=== PATIENT | male | born 2000 | race Caucasian/White ===

== ENCOUNTER 2020-01-06 10:22 | Emergency (ER) | payer OTHER ==
--- OUTSIDE RECORDS SUMMARY | 2020-01-06 10:25 | XMS REPORT | Continuity of Care Document ---
:2000 Author Organization [employer] Care Team Providers Name Role Phone [employer] Unavailable Un available Problems Problem Status Onset Classification Date Comments Sourc e Date Reported Fractured nasal Active 02/06/20 Problem 09/02/2017 Data bones (disorder) 14 migrated Med ical from [employer] on 07/28/14. NASAL FRACTURE Active 02/06/20 Condition 02/05/2014 14 Medical Group CONTUSION OF KNEE Inactive 11/03/19 Condition 02/05/2014 M H 14 Medical Group SPRAIN OF Inactive 11/03/19 Condition 02/05/2014 UNSPECIFIED SITE OF 14 Medical HIP AND THIGH - Grou p HYPEREXTENSION Upper respiratory Resolved 12/31/19 Problem 09/02/2017 Data mi grated from [employer] on 09/15/14. infection 13 Data migrated from [employer] on 09/14/14. Medical (disorder) Group UPPER RESPIRATORY Inactive 12/31/19 Condition 02/05/2014 M H INFECTION 13 Medical Group WRIST SPRAIN Inactive 11/03/19 Condition 02/05/2014 13 Medical Group WELL ADOLESCENCE Active 10/29/19 Condition 02/05/2014 VISIT 13 Medical Group Backache (finding) Resolved 06/11/19 Problem 09/02/2017 Data m igrated from [employer] [facility] on 09/15/14. 13 Data migrated from [employer] on 09/14/14. Medical Group BACK PAIN Inactive 06/11/19 Condition 02/05/2014 13 Medical Group Acute upper Resolved 01/08/20 Problem 09/02/2017 Data migrated from [employer] on 09/15/14. respiratory 12 Data migrated from [employer] on 09/14/14. Medical infection Group (disorder) UPPER RESPIRATORY Inactive 01/08/20 Condition 02/05/2014 M H INFECTION, ACUTE 12 Med ical Group Gastroesophageal Active Problem 09/02/2017 Data reflux disease migrated Medic al (disorder) from [employer] on 07/28/14. ASTHMA Inactive Condition 02/05/2014 Medical Group G E R D Active Condition 02/05/2014 Medical Group FAMILY HISTORY OF Inactive Condition 02/05/2014 M H ASTHMA Medical Group FAMILY HISTORY OF Inactive Condition 02/05/2014 M H DIABETES Medical Group Medications Medication Details Route Status Patient Ordering Order Source Instructions Provider Date SYMBICORT 2 puffs 2 No Longer 12/31/19 80-4.5 MCG/ACT times/day Active 13 Medical AERO Group XOPENEX HFA 45 2 puffs No Longer 12/31/19 MCG/ACT AERO 3xday Active 13 Medical during Group acute illness or every 3-4 hours as needed for wheezing AEROCHAMBER to be used No Longer 12/31/19 PLUS MISC with Active 13 Medical inhalers Group PROTONIX 20 MG No Longer 01/08/20 TBEC Active 12 Medical Group ZITHROMAX use as No Longer 01/08/20 Z-STEFANO 250 MG directed Active 12 Medical TABS Group CHERATUSSIN AC 1 tsp q 6 No Longer 01/08/20 100-10 MG/5ML hrs prn Active 12 Medical SYRP cough Group REMERON 15 MG No Longer 01/08/20 TABS Active 12 Medical Group ADVAIR DISKUS No Longer 01/08/20 250-50 Active 12 Medical MCG/DOSE AEPB Group SINGULAIR 10 No Longer 01/08/20 MG TABS Active 12 Medical Group Allergies, Adverse Reactions, Alerts No Known Medication Allergies Immunizations Immunization Date Site Status Last Comments Source Given Updated influenza 10/29/19 completed Medical immunization (Flu 13 Gr oup Vax) has been administered diphtheria/pertuss 10/29/19 Right completed GE Result Comm ent: Medical is, acel/tetanus 13 Deltoid boostrix [facility] adult<sup>1</sup> [[id number]]. Migrated from OBS ; Data migrated from [employer] on 04/02/2015. meningococcal 10/29/19 Left Deltoid completed GE Result Commen t: [facility] conjugate 13 menactra Group vaccine<sup>2</sup (mcv4p) > [[id number]]. Migrated from OBS ; Data migrated from [employer] on 04/02/2015. influenza virus 10/29/19 Bilateral completed GE Result Comment : Medical vaccine, live, 13 Nares flumist Group trivalent<sup>3</s quadrivalen t up> [[id number]]. Migrated from OBS ; Data migrated from [employer] on 04/02/2015. Hx influenza 10/29/19 completed GE Result Comment: [facility] vaccine-unspecifie 13 10-28-2012. Group d<sup>4</sup> Migrated from OBS ; Data migrated from [employer] on 04/02/2015. human 10/29/19 Left Deltoid completed GE Result Comment: [facility] papillomavirus 13 gardasil Group vaccine<sup>5</sup [[id number]]. > Migrated from OBS VIS: Gardasil: 04-22-2011 ; Data migrated from [employer] on 04/02/2015. Hx pneumococcal 01/27/20 completed GE Result Comment : Medical vaccine<sup>6</sup 11 historical. Group > Migrated from OBS ; Data migrated from [employer] on 04/02/2015. pediatric 01/27/20 completed Medical pneumococcal 11 Group vaccine (Prevnar)#4 varicella virus 07/05/19 completed GE Result Comment : Medical vaccine<sup>10</alexander 09 historical. Group p> Migrated from OBS ; Data migrated from [employer] on 04/02/2015. chicken pox 07/05/19 completed Medic al immunization #2 09 Grou p Hx hepatitis A 08/13/19 completed GE Result Comment: Medical vaccine<sup>12</alexander 07 havrix. G roup p> Migrated from OBS ; Data migrated from [employer] on 04/02/2015. hepatitis A 08/13/19 completed Medic al immunization #2 07 Grou p Hx hepatitis A 01/15/20 completed GE Result Comment: Medical vaccine<sup>13</alexander 06 havrix. G roup p> Migrated from OBS ; Data migrated from [employer] on 04/02/2015. hepatitis A 01/15/20 completed Medic al immunization #1 06 Grou p Hx poliovirus 01/16/20 completed GE Result Comment: Medical vaccine-unspecifie 03 historical. Group d<sup>14</sup> Migrated from OBS ; Data migrated from [employer] on 04/02/2015. measles/mumps/rube 01/16/20 completed GE Result Comm ent: Medical lla virus 03 historical. Group vaccine<sup>18</alexander Migrated fr om p> OBS ; Data migrated from [employer] on 04/02/2015. Hx 01/16/20 completed GE Result Comment: M edical diphth/pertussis, 03 historical. Group acellular/tetanus< Migrated fr om sup>20</sup> OBS ; Data migrated from [employer] on 04/02/2015. DPT immunization 01/16/20 completed Medical #5 03 Group oral polio vaccine 01/16/20 completed [facility] Medical (OPV) #4 03 Group MMR virus 01/16/20 completed Medical immunization #2 03 Grou p MMR (measles, 01/16/20 completed Med ical mumps, rubella) 03 Grou p virus immunization #2 Hx poliovirus 04/13/19 completed GE Result Comment: Medical vaccine-unspecifie 01 historical. Group d<sup>15</sup> Migrated from OBS ; Data migrated from [employer] on 04/02/2015. Hx hepatitis B 04/13/19 completed GE Result Comment: Medical vaccine<sup>25</alexander 01 historical. Group p> Migrated from OBS ; Data migrated from [employer] on 04/02/2015. Hx haemophilus b 04/13/19 completed GE Result Commen t: Medical vaccine<sup>28</alexander 01 historical. Group p> Migrated from OBS ; Data migrated from [employer] on 04/02/2015. Hx 04/13/19 completed GE Result Comment: [facility] edical diphth/pertussis, 01 historical. Group acellular/tetanus< Migrated fr om sup>21</sup> OBS ; Data migrated from [employer] on 04/02/2015. pediatric 04/13/19 completed Medical pneumococcal 01 Group vaccine (Prevnar)#4 hepatitis B 04/13/19 completed Medic al vaccine #3 01 Group DPT immunization 04/13/19 completed Medical #4 01 Group Hemophilus 04/13/19 completed Medica l influenza B 01 Group immunization #4 oral polio vaccine 04/13/19 completed [facility] Medical (OPV) #3 01 Group varicella virus 01/14/20 completed GE Result Comment : Medical vaccine<sup>11</alexander 00 historical. Group p> Migrated from OBS ; Data migrated from [employer] on 04/02/2015. measles/mumps/rube 01/14/20 completed GE Result Comm ent: Medical lla virus 00 historical. Group vaccine<sup>19</alexander Migrated fr om p> OBS ; Data migrated from [employer] on 04/02/2015. Hx pneumococcal 01/14/20 completed GE Result Comment : Medical vaccine<sup>7</sup 00 historical. Group > Migrated from OBS ; Data migrated from [employer] on 04/02/2015. pediatric 01/14/20 completed Medical pneumococcal 00 Group vaccine (Prevnar)#3 MMR virus 01/14/20 completed Medical immunization #1 00 Grou p chicken pox 01/14/20 completed Medic al immunization #1 00 Grou p MMR (measles, 01/14/20 completed Med ical mumps, rubella) 00 Grou p virus immunization #1 Hx pneumococcal 10/16/19 completed GE Result Comment : Medical vaccine<sup>8</sup 00 historical. Group > Migrated from OBS ; Data migrated from [employer] on 04/02/2015. pediatric 10/16/19 completed Medical pneumococcal 00 Group vaccine (Prevnar)#2 Hx haemophilus b 07/24/19 completed GE Result Commen t: Medical vaccine<sup>29</alexander 00 historical. Group p> Migrated from OBS ; Data migrated from [employer] on 04/02/2015. Hx 07/24/19 completed GE Result Comment: M edical diphth/pertussis, 00 historical. Group acellular/tetanus< Migrated fr om sup>22</sup> OBS ; Data migrated from [employer] on 04/02/2015. Hx pneumococcal 07/24/19 completed GE Result Comment : Medical vaccine<sup>9</sup 00 historical. Group > Migrated from OBS ; Data migrated from [employer] on 04/02/2015. DPT immunization 07/24/19 completed Medical #3 00 Group Hemophilus 07/24/19 completed Medica l influenza B 00 Group immunization #3 pediatric 07/24/19 completed Medical pneumococcal 00 Group vaccine (Prevnar) #1 Hx poliovirus 06/09/19 completed GE Result Comment: Medical vaccine-unspecifie 00 historical. Group d<sup>16</sup> Migrated from OBS ; Data migrated from [employer] on 04/02/2015. Hx haemophilus b 06/09/19 completed GE Result Commen t: [facility] Medical vaccine<sup>30</alexander 00 historical. Group p> Migrated from OBS ; Data migrated from [employer] on 04/02/2015. Hx 06/09/19 completed GE Result Comment: M edical diphth/pertussis, 00 historical. Group acellular/tetanus< Migrated fr om sup>23</sup> OBS ; Data migrated from [employer] on 04/02/2015. DPT immunization 06/09/19 completed Medical #2 00 Group Hemophilus 06/09/19 completed Medica l influenza B 00 Group immunization #2 oral polio vaccine 06/09/19 completed H Medical (OPV) #2 00 Group Hx poliovirus 03/20/19 completed GE Result Comment: Medical vaccine-unspecifie 00 historical. Group d<sup>17</sup> Migrated from OBS ; Data migrated from [employer] on 04/02/2015. Hx hepatitis B 03/20/19 completed GE Result Comment: Medical vaccine<sup>26</alexander 00 historical. Group p> Migrated from OBS ; Data migrated from [employer] on 04/02/2015. Hx haemophilus b 03/20/19 completed GE Result Commen t: Medical vaccine<sup>31</alexander 00 historical. Group p> Migrated from OBS ; Data migrated from [employer] on 04/02/2015. Hx 03/20/19 completed GE Result Comment: M edical diphth/pertussis, 00 historical. Group acellular/tetanus< Migrated fr om sup>24</sup> OBS ; Data migrated from [employer] on 04/02/2015. hepatitis B 03/20/19 completed Medic al vaccine #2 00 Group DPT immunization 03/20/19 completed Medical #1 00 Group Hemophilus 03/20/19 completed Medica l influenza B 00 Group immunization #1 oral polio vaccine 03/20/19 completed H Medical (OPV) #1 00 Group hepatitis B 03/20/19 completed Medic al vaccine #2 given 00 [facility] up Hx hepatitis B 01/12/19 completed GE Result Comment: Medical vaccine<sup>27</alexander 99 historical. Group p> Migrated from OBS ; Data migrated from [employer] on 04/02/2015. hepatitis B 01/12/19 completed Medic al vaccine #1 99 Group hepatitis B 01/12/19 completed Medic al vaccine #1 given 99 [facility] up Results No Data Provided for This Section Pathology Reports No Data Provided for This Section Diagnostic Reports No Data Provided for This Section Consultation Notes No Data Provided for This Section Discharge Summaries No Data Provided for This Section History and Physicals No Data Provided for This Section Vital Signs Vital Sign Value Date Comments Source Respitory Rate 16 05/28/2017 Medical Gr oup Height 163.83 cm 05/28/2017 Medical Grou p Weight 51.08 05/28/2017 Medical Grou p BMI Calculated 19.03 05/28/2017 Medical Gr oup Systolic (mm Hg) 115 05/28/2017 Medical Group Diastolic (mm Hg) 67 05/28/2017 Medical Group Heart Rate 72 05/28/2017 Medical Grou p Weight 117.1 02/05/2014 Medical Grou p Systolic (mm Hg) 122 02/05/2014 Medical Group Diastolic (mm Hg) 67 02/05/2014 Medical Group Heart Rate 60 02/05/2014 Medical Grou p Temperature Oral (F) 98.8 F 02/05/2014 Medi licha Group Weight 112.2 11/02/2013 Medical Grou p Systolic (mm Hg) 121 11/02/2013 Medical Group Diastolic (mm Hg) 63 11/02/2013 Medical Group Heart Rate 61 11/02/2013 Medical Grou p Temperature Oral (F) 98.1 F 11/02/2013 Medi licha Group Respitory Rate 18 11/02/2013 Medical Gr oup Height 63 12/30/2012 Medical Grou p Weight 109.38 12/30/2012 Medical Grou p Temperature Oral (F) 98.7 F 12/30/2012 Medi licha Group Heart Rate 60 12/30/2012 Medical Grou p Systolic (mm Hg) 121 12/30/2012 Medical Group Diastolic (mm Hg) 70 12/30/2012 Medical Group Respitory Rate 17 12/30/2012 Medical Gr oup Weight 110.38 11/02/2012 Medical Grou p Temperature Oral (F) 98 F 11/02/2012 Medi licha Group Respitory Rate 18 11/02/2012 Medical Gr oup Heart Rate 72 11/02/2012 Medical Grou p Systolic (mm Hg) 128 11/02/2012 Medical Group Diastolic (mm Hg) 80 11/02/2012 Medical Group Height 62 10/28/2012 Medical Grou p Weight 111.13 10/28/2012 Medical Grou p Temperature Oral (F) 99.2 F 10/28/2012 Medi licha Group Respitory Rate 18 10/28/2012 Medical Gr oup Heart Rate 63 10/28/2012 Medical Grou p Systolic (mm Hg) 123 10/28/2012 Medical Group Diastolic (mm Hg) 73 10/28/2012 Medical Group Weight 108.6 06/10/2012 Medical Grou p Temperature Oral (F) 98.4 F 06/10/2012 Medi licha Group Systolic (mm Hg) 117 06/10/2012 Medical Group Diastolic (mm Hg) 60 06/10/2012 Medical Group Heart Rate 80 06/10/2012 Medical Grou p Height 58.5 01/08/2012 Medical Grou p Weight 107.6 01/08/2012 Medical Grou p Temperature Oral (F) 98.4 F 01/08/2012 Medi licha Group Systolic (mm Hg) 100 01/08/2012 Medical Group Diastolic (mm Hg) 60 01/08/2012 Medical Group Encounters Location Location Encounter Encounter Reason Attending ADM DC Stat us Source Details Type Number For Provider Date Date Visit [facility] [place] Office [id number] Mirta 11/02 11/02 [place] Medical Visit 07[facility] 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, 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 p Pediatrics [facility] [place] Office [id number] Mirta 02/05 02/05 [place] Medical Visit 9590 [facility] 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, 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 p Pediatrics Outpatient [id number] ERNST 05/08 [facility] /2016 [place] [facility]patient [id number] 05/27 [facility] /2017 [facility] Family Outpatient [id number] 05/27 05/28 Medicine /2017 Medic al [facility] Procedures Procedure Code Date Perfomer Comments Source smoking/tobacco 14 12/30/2012 Smokinng Medica l cessation, patient Cessation Group education and Handout Provided counseling Assessment and Plan No Data Provided for This Section Plan of Care No Data Provided for This Section Social History Social History Date Source Social History TypeResponse 05/28/2017 Medical Mercedes francois Smoking Status Current every day smoker; Ready to chopra e: No; Concerns about tobacco use in household: Yes; Exposure to Tobacco Smoke None; Cigarette Smoking Last 365 Days No; Reg Smoking Cessation Counseling No; Started at age: 15.0; entered on: 05/28/17 Family History No Data Provided for This Section Advance Directives No Data Provided for This Section Functional Status No Data Provided for This Section
--- NOTE | 2020-01-06 10:39 | EDPHYS ---
Physician Documentation [facility] Name: Luis Fernando Smith Age: 19 yrs Sex: Male : 2000 Arrival Date: 01/06/2020 Time: 10:27 Bed 6 Private MD: ED Physician Trever Burt HPI: 01/05 10:40 This 19 yrs old Male presents to ER via Ambulatory with complaints of Finger kb Infection. 10:40 The patient has a laceration related to: working, occurred at work, and there are no kb complicating factors. The injury was accidental. The laceration(s) is(are) located on the palmar aspect of distal phalanx of left thumb. Onset: The symptoms/episode began/occurred 2 day(s) ago. Associated signs and symptoms: The patient has no apparent associated signs or symptoms. The patient has not experienced similar symptoms in the past. The patient has not recently seen a physician. Historical: - Allergies: 10:38 unknown allergy; iw - Home Meds: 10:38 Vraylar 1.5 mg oral cap 1 cap once daily [Active]; iw - PMHx: 10:38 None; iw - PSHx: 10:38 None; iw - Immunization history:: Adult Immunizations up to date, Last tetanus immunization: up to date. - Social history:: Smoking status: Patient reports the use of cigarette tobacco products, denies chronic smoking, but will smoke occasionally. ROS: 10:39 Constitutional: Negative for fever, chills, and weight loss, Cardiovascular: Negative kb for chest pain, palpitations, and edema, Respiratory: Negative for shortness of breath, cough, wheezing, and pleuritic chest pain, Abdomen/GI: Negative for abdominal pain, nausea, vomiting, diarrhea, and constipation, MS/Extremity: Negative for injury and deformity, Neuro: Negative for headache, weakness, numbness, tingling, and seizure. 10:39 Skin: Positive for laceration(s), of the palmar aspect of distal phalanx of left thumb. Exam: 10:39 Constitutional: This is a well developed, well nourished patient who is awake, alert, kb and in no acute distress. Head/Face: Normocephalic, atraumatic. Chest/axilla: Normal chest wall appearance and motion. Nontender with no deformity. No lesions are appreciated. Cardiovascular: Regular rate and rhythm with a normal S1 and S2. No gallops, murmurs, or rubs. Normal PMI, no JVD. No pulse deficits. Respiratory: Lungs have equal breath sounds bilaterally, clear to auscultation and percussion. No rales, rhonchi or wheezes noted. No increased work of breathing, no retractions or nasal flaring. Abdomen/GI: Soft, non-tender, with normal bowel sounds. No distension or tympany. No guarding or rebound. No evidence of tenderness throughout. MS/ Extremity: Pulses equal, no cyanosis. Neurovascular intact. Full, normal range of motion. Neuro: Awake and alert, GCS 15, oriented to person, place, time, and situation. Cranial nerves II-XII grossly intact. Motor strength 5/5 in all extremities. Sensory grossly intact. Cerebellar exam normal. Normal gait. 10:39 Skin: injury, laceration(s), the wound is approximately 2 cm(s), of the palmar aspect of distal phalanx of left thumb, that can be described as clean, no foreign body, linear, very superficial. Vital Signs: 10:36 BP 140 / 92; Pulse 80; Resp 16; Temp 98.0; Pulse Ox 100% on R/A; Weight 74.84 kg; iw Height 5 ft. 2 in. (157.48 cm); Pain 0/10; 10:36 Body Mass Index 30.18 (74.84 kg, 157.48 cm) iw MDM: 10:31 Patient medically screened. kb 10:38 Data reviewed: vital signs, nurses notes. Data interpreted: Pulse oximetry: on room air kb is 100 %. Interpretation: normal. Counseling: I had a detailed discussion with the patient and/or guardian regarding: the historical points, exam findings, and any diagnostic results supporting the discharge/admit diagnosis, the need for outpatient follow up, a family practitioner, to return to the emergency department if symptoms worsen or persist or if there are any questions or concerns that arise at home. Administered Medications: No medications were administered Disposition: 10:38 Laceration without foreign body of left thumb without damage to nail. Disposition: 01/06/20 10:38 Discharged to Home. Impression: Encounter for screening, unspecified. - Condition is Stable. - Medication Reconciliation Form, Thank You Letter, Antibiotic Education, Prescription Opioid Use form. - Follow up: Emergency Department; When: As needed; Reason: Worsening of condition. Follow up: Private Physician; When: 2 - 3 days; Reason: Recheck today's complaints, Continuance of care, Re-evaluation by your physician. Addendum: 01/08/2020 08:30 Co-signature as Attending Physician, Trever Burt MD I agree with the assessment and c choe plan of care. Signatures: Lanie Rodas, THOMPSON-Sergei MACKAY-Trever Ochoa MD MD cha Williams, Irene, RN RN iw Corrections: (The following items were deleted from the chart) 01/05 10:44 10:38 01/06/2020 10:38 Discharged to Home. Impression: Encounter for screening, iw unspecified. Condition is Stable. Forms are Medication Reconciliation Form, Thank You Letter, Antibiotic Education, Prescription Opioid Use. Follow up: Emergency Department; When: As needed; Reason: Worsening of condition. Follow up: Private Physician; When: 2 - 3 days; Reason: Recheck today's complaints, Continuance of care, Re-evaluation by your physician. kb
--- NOTE | 2020-01-06 10:39 | ER ---
Nurse's Notes [facility] Name: Luis Fernando Smith Age: 19 yrs Sex: Male : 2000 Arrival Date: 01/06/2020 Time: 10:27 Bed 6 Private MD: Diagnosis: Encounter for screening, unspecified Presentation: 01/05 10:36 Chief complaint: Patient states: cut left thumb while working 2 days ago, was worried iw that it might be infected. Coronavirus screen: At this time, the client does not indicate any symptoms associated with coronavirus-19. Ebola Screen: Patient negative for fever greater than or equal to 101.5 degrees Fahrenheit, and additional compatible Ebola Virus Disease symptoms Patient denies exposure to infectious person. Patient denies travel to an Ebola-affected area in the 21 days before illness onset. No symptoms or risks identified at this time. Initial Sepsis Screen: Does the patient meet any 2 criteria? No. Patient's initial sepsis screen is negative. Does the patient have a suspected source of infection? No. Patient's initial sepsis screen is negative. Risk Assessment: Do you want to hurt yourself or someone else? Patient reports no desire to harm self or others. Onset of symptoms was January 04, 2020. 10:36 Method Of Arrival: Ambulatory iw 10:36 Acuity: TATO 5 iw Historical: - Allergies: 10:38 unknown allergy; iw - Home Meds: 10:38 Vraylar 1.5 mg oral cap 1 cap once daily [Active]; iw - PMHx: 10:38 None; iw - PSHx: 10:38 None; iw - Immunization history:: Adult Immunizations up to date, Last tetanus immunization: up to date. - Social history:: Smoking status: Patient reports the use of cigarette tobacco products, denies chronic smoking, but will smoke occasionally. Screenin:39 Abuse screen: Denies threats or abuse. Denies injuries from another. Nutritional iw screening: On. Tuberculosis screening: No symptoms or risk factors identified. Fall Risk None identified. Assessment: 10:38 General: Appears in no apparent distress. Behavior is calm, cooperative. Pain: Denies iw pain. Neuro: Level of Consciousness is awake, alert, obeys commands, Oriented to person, place, time, situation. Cardiovascular: Patient's skin is warm and dry. Respiratory: Respiratory effort is even, unlabored, Respiratory pattern is regular. Injury Description: Laceration sustained to palmar aspect of distal phalanx of left thumb is superficial, was sustained 2 days ago. Vital Signs: 10:36 BP 140 / 92; Pulse 80; Resp 16; Temp 98.0; Pulse Ox 100% on R/A; Weight 74.84 kg; iw Height 5 ft. 2 in. (157.48 cm); Pain 0/10; 10:36 Body Mass Index 30.18 (74.84 kg, 157.48 cm) iw ED Course: 10:27 Patient arrived in ED. mr 10:28 Lanie Rodas FNP-C is [facility]. kb 10:28 Trever Burt MD is Attending Physician. kb 10:31 Jimmie Zeng, RN is Primary Nurse. jl7 10:37 Triage completed. iw 10:38 Arm band placed on. iw 10:39 No provider procedures requiring assistance completed. Patient did not have IV access iw during this emergency room visit. Administered Medications: No medications were administered Outcome: 10:38 Discharge ordered by MD. kb 10:44 Patient left the ED. iw Signatures: Lanie Rodas FNP-C FNP-Dannielle Zapata Susan Campos, RN RN iw Jimmie Zeng, RN RN jl7
[2020-01-06 10:58] VITALS: BP 140/92; TEMP 98; O2SAT 100
== END 2020-01-06 10:44 | disposition home or self-care (01) ==
LOC: ER 10:22
DX: S61.012A Laceration without foreign body of left thumb without damage to nail, initial encounter (principal); W45.8XXA Other foreign body or object entering through skin, initial encounter; Y93.9 Activity, unspecified; Y92.89 Other specified places as the place of occurrence of the external cause; Y99.8 Other external cause status; F17.210 Nicotine dependence, cigarettes, uncomplicated
CPT/HCPCS: 99281

== ENCOUNTER 2021-05-24 01:08 | Observation (INO) | payer OTHER ==
[2021-05-24 02:35] LABS: Urine Blood Negative (Negative); Urine Glucose Negative (Negative); Urine Protein Negative (Negative); Urine Specific Gravity 1.015 (1.005-1.030); Urine pH 5.5 (5.0-7.0)
[2021-05-24 02:43] LABS: Barbiturates NEGATIVE (NEGATIVE); Benzodiazepines NEGATIVE (NEGATIVE); Cocaine NEGATIVE (NEGATIVE); METHAMPHETAM NEGATIVE (NEGATIVE); Methadone NEGATIVE (NEGATIVE); Opiates NEGATIVE (NEGATIVE); Phencyclidine NEGATIVE (NEGATIVE); THC Cannibis NEGATIVE (NEGATIVE)
[2021-05-24 02:47] LABS: Absolute Lymphocytes (CBC) 2.5 K/uL (0.7-4.9); Hematocrit 44.3 % (39.6-49.0); Lymphocytes % 32.9 % (15.3-44.8); MPV 9.3 fL (7.6-11.3); RBC Red Blood Cell Count 4.81 M/uL (4.33-5.43)
[2021-05-24 03:00] LABS: Protime INR 1.04
[2021-05-24 03:07] LABS: ALT/SGPT 21 U/L (12-78); AST/SGOT 13 U/L (15-37); Albumin 4.1 g/dL (3.4-5.0); Alkaline Phosphatase 74 U/L (45-117); BUN Blood Urea Nitrogen 6 mg/dL (7-18); Bicarbonate 27 mmol/L (21-32); Bilirubin Direct 0.1 mg/dL (0-0.2); Bilirubin Total 0.3 mg/dL (0.2-1.0); Glucose Level 100 mg/dL (74-106); Potassium 3.3 mmol/L (3.5-5.1); Protein, Total 7.2 g/dL (6.4-8.2); Sodium Level 144 mmol/L (136-145)
[2021-05-24] MEDS ORDERED: POTASSIUM 25 MEQ EFFERV TAB ONE (03:49)
--- NOTE | 2021-05-24 07:57 | EDPHYS ---
Physician Documentation [facility] Name: Luis Fernando Smith Age: 21 yrs Sex: Male : 2000 Arrival Date: 05/24/2021 Time: 01:15 Bed 17 Private MD: ED Physician Trever Burt HPI: 05/24 02:40 This 21 yrs old Male presents to ER via EMS with complaints of Overdose. jmm 02:40 The patient presents to the emergency department with psychosis, a history of substance jmm abuse. Onset: The symptoms/episode began/occurred acutely, just prior to arrival. Past psychiatric history: Psychiatric medications include:. According to EMS patient ingested 15-20 3mg tablets of Vraylar, 15-20 mg of tramadol 50 mg tablets, and around 12 diphenhydramine/ibuprofen. This has occurred in the past. Patient denies suicidal ideations. GF states the patient has done this in the past and attributes this to his psychosis/schizophrenia. Historical: - Allergies: 01:28 NKDA; tk1 - Home Meds: 01:28 Vraylar 1.5 mg Oral cap 1 cap once daily [Active]; tk1 - PMHx: 08:26 Bipolar disorder; Schizophrenia; jd3 - Immunization history:: Adult Immunizations unknown. - Social history:: Smoking status: Patient reports the use of cigarette tobacco products. ROS: 02:40 Constitutional: Negative for fever, chills, and weight loss, Cardiovascular: Negative jmm for chest pain, palpitations, and edema, Respiratory: Negative for shortness of breath, cough, wheezing, and pleuritic chest pain. 02:40 Neuro: Positive for headache. 02:40 All other systems are negative. Exam: 02:40 Constitutional: This is a well developed, well nourished patient who is awake, alert, jmm and in no acute distress. 02:40 Eyes: EOMI, no conjunctival erythema appreciated ENT: Moist Mucus Membranes Neck: Trachea midline, Supple Chest/axilla: Normal chest wall appearance and motion. Cardiovascular: Regular rate and rhythm. No edema appreciated Respiratory: Normal respirations, no respiratory distress appreciated Abdomen/GI: Non distended, soft Back: Normal ROM 02:40 Skin: Superficial lacerations noted to the left volar surface of the forearm. 02:40 Neuro: Orientation: is normal, Mentation: able to follow commands, sleepy, somnolent. 02:40 Psych: Behavior/mood is cooperative, depressed. 08:30 ECG was reviewed by the Attending Physician. [facility] 08:31 ECG was reviewed by the Attending Physician. [facility] Vital Signs: 01:22 BP 111 / 62 LA Supine (auto/reg); Pulse 88 MON; Resp 16 S; Temp 98.7(O); Pulse Ox 97% tk1 on R/A; Weight 72.57 kg; Height 5 ft. 4 in. (162.56 cm) (R); Pain 0/10; 01:28 BP 111 / 62 LA Supine (auto/reg); Pulse 88; Resp 16 S; Temp 98.7; Pulse Ox 97% on R/A; tk1 Pain 0/10; 02:00 BP 113 / 65 LA Supine (auto/reg); Pulse 81 MON; Resp 19 S; Pulse Ox 96% on R/A; Pain tk1 0/10; 02:30 BP 112 / 073 LA Supine (/reg); Pulse 79 MON; Resp 23 S; Pulse Ox 95% on R/A; tk1 03:00 BP 115 / 69 LA Supine (auto/reg); Pulse 75 MON; Resp 17 S; Pulse Ox 95% on R/A; tk1 03:30 BP 118 / 77 LA Supine (auto/reg); Pulse 78 MON; Resp 17; Pulse Ox 94% on R/A; tk1 04:00 BP 145 / 87 LA Supine (auto/reg); Pulse 99 MON; Resp 17 S; Pulse Ox 96% on R/A; tk1 04:46 BP 132 / 99 LA Supine (auto/reg); Pulse 101 MON; Resp 16 S; Pulse Ox 96% on R/A; tk1 07:15 BP 153 / 85; Pulse 125; Resp 20 S; Pulse Ox 97% on R/A; jd3 08:27 BP 131 / 85; Pulse 131; Resp 19 S; Pulse Ox 100% on R/A; jd3 09:12 BP 144 / 87; Pulse 125; Resp 19 S; Pulse Ox 100% on R/A; jd3 09:54 BP 144 / 87; Pulse 112; Resp 18 S; Pulse Ox 97% on R/A; jd3 11:17 BP 143 / 78; Pulse 113; Resp 17 S; Pulse Ox 98% on R/A; jd3 11:53 BP 143 / 78; Pulse 105; Resp 18 S; Pulse Ox 97% on R/A; jd3 01:22 Body Mass Index 27.46 (72.57 kg, 162.56 cm) tk1 MDM: 01:21 Patient medically screened. ms3 07:51 Differential diagnosis: Ingestion/exposure to Vraylar and Tramadol 15-20 of each. Data theresa reviewed: vital signs, nurses notes, lab test result(s), EKG. Data interpreted: surveillance system monitor: rate is 125 beats/min, rhythm is regular. Test interpretation: by ED physician or midlevel provider: ECG, plain radiologic studies. Counseling: I had a detailed discussion with the patient and/or guardian regarding: the historical points, exam findings, and any diagnostic results supporting the discharge/admit diagnosis, lab results, radiology results, the need for further work-up and treatment in the hospital. 05/24 01:41 Order name: Acetaminophen; Complete Time: 03:33 [facility] 05/24 01:41 Order name: Basic Metabolic Panel; Complete Time: 03:33 [facility] 05/24 01:41 Order name: CBC with Diff; Complete Time: 02:51 [facility] 05/24 01:41 Order name: ETOH Level; Complete Time: 03:33 [facility] 05/24 01:41 Order name: Hepatic Function; Complete Time: 03:33 [facility] 05/24 01:41 Order name: PT-INR; Complete Time: 03:33 [facility] 05/24 01:41 Order name: Ptt, Activated; Complete Time: 03:33 [facility] 05/24 01:41 Order name: Salicylate; Complete Time: 03:33 [facility] 05/24 01:41 Order name: Urine Drug Screen; Complete Time: 02:45 [facility] 05/24 02:35 Order name: Urine Dipstick-Ancillary; Complete Time: 02:45 [facility] 05/24 07:50 Order name: Chem 7 [facility] 05/24 08:16 Order name: SARS-COV-2 RT PCR (Document "Date of Onset" if Symptomatic) [facility] 05/24 08:18 Order name: CBC with Automated Diff [facility] 05/24 08:18 Order name: CBC with Automated Diff [facility] 05/24 01:41 Order name: EKG; Complete Time: 01:43 [facility] 05/24 01:41 Order name: EKG - Nurse/Tech; Complete Time: 03:40 [facility] 05/24 01:41 Order name: IV Saline Lock; Complete Time: 03:41 [facility] 05/24 01:41 Order name: Labs collected and sent; Complete Time: 03:41 [facility] 05/24 01:41 Order name: Suicide Precautions; Complete Time: 03:41 [facility] 05/24 01:41 Order name: Suicide Screening ([place]); Complete Time: 03:41 [facility] 05/24 07:50 Order name: EKG; Complete Time: 07:51 [facility] 05/24 08:18 Order name: Regular [facility] 05/24 08:18 Order name: Comprehensive Metabolic Panel [facility] 05/24 08:18 Order name: Comprehensive Metabolic Panel [facility] 05/24 01:41 Order name: Urine Dipstick-Ancillary (obtain specimen); Complete Time: 07:14 [facility] 05/24 07:50 Order name: EKG - Nurse/Tech; Complete Time: 07:55 [facility] 05/24 08:36 Order name: Labs - recollect needed: green top; Complete Time: 08:52 [facility] EC:30 Rate is 89 beats/min. Rhythm is regular. QRS [place] is Normal. [place] interval is normal. QRS theresa interval is normal. QT interval is normal. No Q waves. T waves are Normal. No ST changes noted. Clinical impression: Normal ECG and No evidence of ischemia. Interpreted by me. Reviewed by me. 08:31 Rate is 126 beats/min. Rhythm is regular. QRS [place] is Normal. [place] interval is normal. theresa QRS interval is normal. QT interval is normal. No Q waves. T waves are Normal. No ST changes noted. Clinical impression: Sinus tachycardia and No evidence of ischemia. Interpreted by me. Reviewed by me. Administered Medications: 03:44 Not Given (Other Intervention Used): Potassium Chloride 40 mEq PO once ms3 03:52 Drug: Potassium Effervescent Tablet 50 mEq Route: PO; tk1 07:00 Follow up: Response: No adverse reaction jd3 08:20 Drug: Thiamine 100 mg Route: IV; Rate: per protocol; Site: right antecubital; jd3 09:46 Follow up: Response: No adverse reaction; IV Status: Completed infusion jd3 08:22 Drug: NS 0.9% 500 ml Route: IV; Rate: bolus; Site: right antecubital; jd3 09:22 Follow up: Response: No adverse reaction; IV Status: Completed infusion jd3 08:22 Drug: NS 0.9% with KCl 20 mEq/L 1000 ml Route: IV; Rate: 125 ml/hr; Site: right jd3 antecubital; 09:47 Follow up: Response: No adverse reaction; IV Status: Infusion continued upon admission jd3 09:11 Drug: Phenergan (promethazine) 12.5 mg Route: IVP; Site: right antecubital; jd3 09:46 Follow up: Response: No adverse reaction jd3 Disposition: 07:51 Co-signature as Attending Physician, Trever Burt MD I agree with the assessment and theresa plan of care. Disposition Summary: 05/24/21 07:56 Hospitalization Ordered Hospitalization Status: Inpatient Admission theresa Provider: Harshil Kinsey cha Condition: Fair theresa Problem: new theresa Symptoms: have improved theresa Bed/Room Type: Standard theresa Location: [facility] ER HOLD(05/24/21 11:31) iw Room Assignment: ERHOLD-(05/24/21 11:31) iw Diagnosis - Schizoaffective disorder, bipolar type theresa - Altered mental status, unspecified - overdose Tramadol \\T\\ Vraylar theresa - Tachycardia, unspecified theresa Forms: - Medication Reconciliation Form theresa - SBAR form theresa Signatures: Dispatcher [employer] Trever Bell MD MD cha Mickail, Joel, PA PA jmm Williams, Irene, RN RN iw Quinton San RN RN jAlexandro Alexander DO DO ms3 Isaura Butler tk1 Corrections: (The following items were deleted from the chart) 11: 07:56 Intensive Care Unit theresa iw 11:31 07:56 theresa iw
--- NOTE | 2021-05-24 07:57 | ER ---
Nurse's Notes [facility] Name: Luis Fernando Smith Age: 21 yrs Sex: Male : 2000 Arrival Date: 05/24/2021 Time: 01:15 Bed 17 Private MD: Diagnosis: Schizoaffective disorder, bipolar type;Altered mental status, unspecified-overdose Tramadol \\T\\ Vraylar;Tachycardia, unspecified Presentation: 05/24 01:21 Note spoke to Poison Control recommendations as follows: watch for HTN, tachycardia, bb thrombocytopenia, GI bleed, metabolic acidosis, check for QRS widening give bicarb if greater than 100. Give fluids and symptomatic and supportive care. Observation for 6-8 hours or until pt is back to baseline. Have pt follow-up in a few weeks to check for thrombocytopenia. Case # [id number]. 01:22 Chief complaint: EMS states: Patient overdosed on Tramadol 50 mg x15, unknown amount of tk1 Vraylar, and a mixture of Benadryl/Ibuprofen 10 tablets. Patient with self inflicted abrasions to left forearm. Coronavirus screen: Client denies travel out of the [place] in the last 14 days. At this time, the client does not indicate any symptoms associated with coronavirus-19. Ebola Screen: Patient negative for fever greater than or equal to 101.5 degrees Fahrenheit, and additional compatible Ebola Virus Disease symptoms Patient denies exposure to infectious person. Patient denies travel to an Ebola-affected area in the 21 days before illness onset. Initial Sepsis Screen: Does the patient meet any 2 criteria? Yes Does the patient have a suspected source of infection? No. Patient's initial sepsis screen is negative. Risk Assessment: Do you want to hurt yourself or someone else? Patient reports desire/thoughts of hurting themselves or someone else. Provider notified. Onset of symptoms was May 23, 2021. 01:22 Method Of Arrival: EMS tk1 01:22 Acuity: TATO 2 tk1 Triage Assessment: 01:28 General: Appears slender, well developed, emaciated, Behavior is cooperative, listless. tk1 Pain: Denies pain. EENT: No deficits noted. No signs and/or symptoms were reported regarding the EENT system. Neuro: Level of Consciousness is lethargic, Oriented to person, place, time, situation, Appropriate for age Test Desk Supervisor are equal bilaterally Moves all extremities. Speech is slurred. Cardiovascular: Capillary refill < 3 seconds is brisk in bilateral fingers. Respiratory: Airway is patent Respiratory effort is even, unlabored, Respiratory pattern is regular, symmetrical, Breath sounds are clear. GI: No deficits noted. No signs and/or symptoms were reported involving the gastrointestinal system. : No deficits noted. No signs and/or symptoms were reported regarding the genitourinary system. Derm: No deficits noted. No signs and/or symptoms reported regarding the dermatologic system. Musculoskeletal: No deficits noted. No signs and/or symptoms reported regarding the musculoskeletal system. Injury Description: Abrasion sustained to dorsal aspect of left forearm is dirty. Historical: - Allergies: :28 NKDA; tk1 - Home Meds: : Vraylar 1.5 mg Oral cap 1 cap once daily [Active]; tk1 - PMHx: 08:26 Bipolar disorder; Schizophrenia; jd3 - Immunization history:: Adult Immunizations unknown. - Social history:: Smoking status: Patient reports the use of cigarette tobacco products. Screenin:33 Abuse screen: Denies threats or abuse. Denies injuries from another. Nutritional tk1 screening: No deficits noted. Tuberculosis screening: No symptoms or risk factors identified. Fall Risk None identified. Assessment: 01:33 Reassessment: See Triage Assessment. tk1 02:00 Reassessment: Cleansed abrasions to left forearm with soap and water. Superficial tk1 abrasions noted after dried blood removed. Patient tolerated well. 02:30 Neuro: Level of Consciousness is obtunded, Moves all extremities. Speech is slurred, tk1 Facial symmetry appears normal, Pupils are PERRLA. Cardiovascular:. Cardiovascular: No deficits noted. Rhythm is sinus tachycardia. Respiratory: Airway is patent Respiratory effort is even, unlabored, Respiratory pattern is regular, symmetrical. Derm: Skin Abrasions to left forearm. Bleeding controlled. 04:04 Reassessment: Patient arousable to tactile stimulation for medication administration. tk1 Awake, drowsy, and incomprehensible speech. 04:46 Reassessment: Poison Control called for update on patient. Given. tk1 05:12 Reassessment: Patient attempting to get OOB. Unsteady and confused. Attempted to tk1 reorient without success. Dr. Brody updated. Will continue to monitor. 06:55 Reassessment: Patient vomited again on floor. Refuses to use emesis bag at left hand. tk1 Attempted to reorient patient to use of emesis bag. Continues with confusion. 07:25 General: Appears uncomfortable, Behavior is anxious, restless, Smells of alcohol. Pain: jd3 Denies pain. Neuro: Level of Consciousness is awake, obeys commands, confused, Oriented to person, Moves all extremities. Full function Speech is slurred, Facial symmetry appears normal, pt talking to self and nurse about "robots taking over the [place]." pt needing multiple reminders to remain in bed. sitter at bedside at this time.. Cardiovascular: Denies chest pain, Capillary refill < 3 seconds Patient's skin is warm and dry. Rhythm is sinus tachycardia. Respiratory: Airway is patent Respiratory effort is even, unlabored, Respiratory pattern is regular, symmetrical. GI: No signs and/or symptoms were reported involving the gastrointestinal system. : No signs and/or symptoms were reported regarding the genitourinary system. EENT: No signs and/or symptoms were reported regarding the EENT system. Derm: Skin is intact, Skin is dry, Skin is normal, Skin temperature is warm Wound noted Other: abrasion noted to left forearm. clean and dry with no bleeding or dried blood noted. 07:25 Reassessment: unable to assess suicidal intent at this time due to pt with confusion. jd3 08:25 Reassessment: No changes from previously documented assessment. Patient and/or family jd3 updated on plan of care and expected duration. Pain level reassessed. pt reported it was ok to share medical information with mother that was on the phone. mother updated on plan of care. 09:12 Reassessment: Patient and/or family updated on plan of care and expected duration. Pain jd3 level reassessed. pt reporting nausea. small amount of emesis. provider notified, see MAR. 09:54 Reassessment: No changes from previously documented assessment. Patient and/or family jd3 updated on plan of care and expected duration. Pain level reassessed. resting in bed comfortably with eyes closed. family/friend at bedside. 11:15 Reassessment: No changes from previously documented assessment. Patient and/or family jd3 updated on plan of care and expected duration. Pain level reassessed. Patient states symptoms have improved. 11:52 Reassessment: Patient and/or family updated on plan of care and expected duration. Pain jd3 level reassessed. Patient is alert, oriented x 3, equal unlabored respirations, skin warm/dry/pink. pt speaking with more clarity. [facility] Pain: Denies pain. Neuro: Level of Consciousness is awake, alert, obeys commands, Oriented to person, place, situation. Vital Signs: 01:22 BP 111 / 62 LA Supine (auto/reg); Pulse 88 MON; Resp 16 S; Temp 98.7(O); Pulse Ox 97% tk1 on R/A; Weight 72.57 kg; Height 5 ft. 4 in. (162.56 cm) (R); Pain 0/10; 01:28 BP 111 / 62 LA Supine (auto/reg); Pulse 88; Resp 16 S; Temp 98.7; Pulse Ox 97% on R/A; tk1 Pain 0/10; 02:00 BP 113 / 65 LA Supine (auto/reg); Pulse 81 MON; Resp 19 S; Pulse Ox 96% on R/A; Pain tk1 0/10; 02:30 BP 112 / 073 LA Supine (/reg); Pulse 79 MON; Resp 23 S; Pulse Ox 95% on R/A; tk1 03:00 BP 115 / 69 LA Supine (auto/reg); Pulse 75 MON; Resp 17 S; Pulse Ox 95% on R/A; tk1 03:30 BP 118 / 77 LA Supine (auto/reg); Pulse 78 MON; Resp 17; Pulse Ox 94% on R/A; tk1 04:00 BP 145 / 87 LA Supine (auto/reg); Pulse 99 MON; Resp 17 S; Pulse Ox 96% on R/A; tk1 04:46 BP 132 / 99 LA Supine (auto/reg); Pulse 101 MON; Resp 16 S; Pulse Ox 96% on R/A; tk1 07:15 BP 153 / 85; Pulse 125; Resp 20 S; Pulse Ox 97% on R/A; jd3 08:27 BP 131 / 85; Pulse 131; Resp 19 S; Pulse Ox 100% on R/A; jd3 09:12 BP 144 / 87; Pulse 125; Resp 19 S; Pulse Ox 100% on R/A; jd3 09:54 BP 144 / 87; Pulse 112; Resp 18 S; Pulse Ox 97% on R/A; jd3 11:17 BP 143 / 78; Pulse 113; Resp 17 S; Pulse Ox 98% on R/A; jd3 11:53 BP 143 / 78; Pulse 105; Resp 18 S; Pulse Ox 97% on R/A; jd3 01:22 Body Mass Index 27.46 (72.57 kg, 162.56 cm) tk1 Vitals: 03:00 Cardiac Rhythm Assessment Regular Sinus tach. tk1 ED Course: 01:15 Patient arrived in ED. ds4 01:22 Isaura Butler is Primary Nurse. tk1 01:28 Triage completed. tk1 01:28 Arm band placed on right wrist. EKG completed in triage. Results shown to MD. tk1 01:33 Patient has correct armband on for positive identification. Bed in low position. Call tk1 light in reach. Side rails up X2. Adult w/ patient. 01:33 Inserted saline lock: 18 gauge in right forearm, using aseptic technique. Blood tk1 collected. 01:40 Kenyon Young PA is PHCP. [facility] 01:40 Alexandro Brody DO is Attending Physician. [facility] 03:00 electronic device monitor on. Pulse ox on. NIBP on. tk1 03:00 No provider procedures requiring assistance completed. IV is patent, is intact, with tk1 good blood return. 07:38 Attending Physician role handed off by Alexandro Brody DO theresa 07:38 Trever Burt MD is Attending Physician. theresa 07:54 Harshil Kinsey MD is Hospitalizing Provider. theresa 11:52 Patient admitted, IV remains in place. jd3 Administered Medications: 03:44 Not Given (Other Intervention Used): Potassium Chloride 40 mEq PO once ms3 03:52 Drug: Potassium Effervescent Tablet 50 mEq Route: PO; tk1 07:00 Follow up: Response: No adverse reaction jd3 08:20 Drug: Thiamine 100 mg Route: IV; Rate: per protocol; Site: right antecubital; jd3 09:46 Follow up: Response: No adverse reaction; IV Status: Completed infusion jd3 08:22 Drug: NS 0.9% 500 ml Route: IV; Rate: bolus; Site: right antecubital; jd3 09:22 Follow up: Response: No adverse reaction; IV Status: Completed infusion jd3 08:22 Drug: NS 0.9% with KCl 20 mEq/L 1000 ml Route: IV; Rate: 125 ml/hr; Site: right jd3 antecubital; 09:47 Follow up: Response: No adverse reaction; IV Status: Infusion continued upon admission jd3 09:11 Drug: Phenergan (promethazine) 12.5 mg Route: IVP; Site: right antecubital; jd3 09:46 Follow up: Response: No adverse reaction jd3 Output: 05/23 23:00 Urine: 9009ml (Straight Cath); Total: 9009ml. tk1 Outcome: 05/24 07:56 Decision to Hospitalize by Provider. theresa 11:51 Admitted to ER Hold. Please see [facility] for further documentation. j 11:51 Condition: stable 11:51 Instructed on the need for admit. 19:00 Patient left the ED. j Signatures: Trever Burt MD MD cha Mickail, Joel, PA PA jmm Ballard, Brenda, RN RN Ike Perea ds4 Quinton San RN RN jd3 Kirby, Tammie tk1 Alexandro Brody DO ms3
[2021-05-24] MEDS ORDERED: NA CHLORIDE 0.9% 500 ML ONE (08:00)
[2021-05-24] MEDS ORDERED: THIAMINE 200 MG/2 ML INJ ONE (08:00)
[2021-05-24] MEDS ORDERED: NS KCL 20MEQ 1,000 ML IV ONE (08:00)
[2021-05-24] MEDS ORDERED: ONDANSETRON 4 MG/2 ML VIAL IV PRN (08:14)
[2021-05-24] MEDS ORDERED: MORPHINE 2 MG/ML SYR IV PRN (08:14)
[2021-05-24] MEDS ORDERED: ACETAMINOPHEN 500 MG TAB PO PRN (08:14)
[2021-05-24] MEDS ORDERED: NA CHLORIDE 0.9% 1,000 ML IV SCH (09:00)
[2021-05-24] MEDS ORDERED: PROMETHAZINE INJ 25 MG/ML AMP ONE (09:11)
[2021-05-24 09:31] LABS: BUN Blood Urea Nitrogen 6 mg/dL (7-18); Bicarbonate 27 mmol/L (21-32); Glucose Level 99 mg/dL (74-106); Potassium 3.7 mmol/L (3.5-5.1); Sodium Level 143 mmol/L (136-145)
[2021-05-24] MEDS ORDERED: NA CHLORIDE 0.9% 1,000 ML ONE ×2 (12:03→13:26)
[2021-05-24 12:31] VITALS: TEMP 98.7; BMI 27.4
[2021-05-24] MEDS ORDERED: METOPROLOL TAR 25 MG TAB PO ONE ×2 (12:47→18:18)
[2021-05-24] MEDS ORDERED: clonazePAM 1 MG TAB PO ONE (12:47)
[2021-05-24] MEDS ORDERED: NA CHLORIDE 0.9% 1,000 ML IV ONE (12:48)
[2021-05-24] MEDS ORDERED: clonazePAM 0.5 MG TAB ONE (13:26)
[2021-05-24] MEDS ORDERED: METOPROLOL TAR 25 MG TAB ONE (13:26)
[2021-05-24 16:19] VITALS: BP 152/83
[2021-05-24 20:05] VITALS: O2SAT 97
--- NOTE | 2021-05-26 09:30 | EKG ---
Test Date: 2021-05-24 Test Time: 01:22:10 Rod Filler: VENTURA MEASUREMENT RESULTS: Intervals: Rate: 89 DC: 166 QRSD: 92 QT: 364 QTc: 442 [place]: P: 65 DC: 166 QRS: 85 T: 19 INTERPRETIVE STATEMENTS: Normal sinus rhythm Normal ECG No previous ECG available for comparison Electronically Signed On 05-26-21 09:26:05 CDT by Deven Earl
--- NOTE | 2021-05-26 09:30 | EKG ---
Test Date: 2021-05-24 Test Time: 08:01:49 Pheresis Nurse: CHRISTINE MEASUREMENT RESULTS: Intervals: Rate: 126 VT: 152 QRSD: 86 QT: 300 QTc: 434 [place]: P: 72 VT: 152 QRS: 93 T: 55 INTERPRETIVE STATEMENTS: Sinus tachycardia Rightward axis Borderline ECG Compared to ECG 05/24/2021 01:22:10 Right-axis deviation now present Sinus rhythm no longer present Electronically Signed On 05-26-21 09:26:04 CDT by Deven Earl
--- NOTE | 2021-06-23 02:43 | P.SSS ---
Patient History Date of Service: 05/24/21 Reason for admission: Alcohol toxicity/tachycardia History of Present Illness: Patient is a 21-year-old gentleman who came to the hospital with alcohol intoxication. Patient was also tachycardic. Patient was given IV fluids and patient was also placed on a beta-kanika therapy. Patient was given DVT prevention. Patient clinical symptoms are improving. Patient wants to go home and at this time patient should be stable for discharge home. Allergies No Known Allergies Allergy (Unverified 05/24/21 11:56) Home Medications: Cariprazine HCl [Vraylar] 1 tab PO DAILY 05/24/21 Metoprolol Tartrate [Lopressor] 25 mg PO BID #60 tab 05/24/21 Trazodone HCl 100 mg PO BEDTIME PRN PRN 05/24/21 clonazePAM [Klonopin] 0.5 mg PO BID #30 tablet 05/24/21 - Past Medical/Surgical History -: bipolar disorder -: schizophrenia Past Surgical History: Patient denies surgical history - Family History Family History: Reviewed- Non-Contributory - Family History Father -: Heart disease - Social History Smoking Status: Unknown if ever smoked Alcohol use: Yes CD- Drugs: No Caffeine use: No Place of Residence: Home Review of Systems 10-point ROS is otherwise unremarkable Physical Examination - Vital Signs Temperature: 98.7 F Blood Pressure: 152/83 Pulse: 91 Respirations: 19 Pulse Ox (%): 98 - Physical Exam General: Alert, In no apparent distress, Oriented x3 HEENT: Atraumatic, PERRLA, Mucous membr. moist/pink, EOMI, Sclerae nonicteric Neck: Supple, 2+ carotid pulse no bruit, No LAD, Without JVD or thyroid abnormality Respiratory: Clear to auscultation bilaterally, Normal air movement Cardiovascular: Regular rate/rhythm, Normal S1 S2 Gastrointestinal: Normal bowel sounds, No tenderness Musculoskeletal: No tenderness Integumentary: No rashes Neurological: Normal gait, Normal speech, Normal strength at 5/5 x4 extr, Normal tone, Normal affect Lymphatics: No axilla or inguinal lymphadenopathy Treatment Summary: Patient has done well during hospital stay. Patient's alcohol intoxication has resolved. Patient is clinically doing much better and is stable for discharge home. - Disposition Disposition: ROUTINE DISCHARGE Condition: GOOD Diet: Regular Activity: Fall precautions Critical Care: No Time Spent Managing Pts Care (In Minutes): 35
== END 2021-05-24 19:02 | disposition home or self-care (01) ==
LOC: ER 01:08 → ERHOLD 08:15
PROVIDERS: ADMIT Hospitalist; ATTEND Hospitalist
DX: F10.129 Alcohol abuse with intoxication, unspecified (principal); R00.0 Tachycardia, unspecified; F31.9 Bipolar disorder, unspecified; F20.9 Schizophrenia, unspecified; F17.210 Nicotine dependence, cigarettes, uncomplicated; Z79.899 Other long term (current) drug therapy; Z20.822 Contact with and (suspected) exposure to COVID-19; Z82.49 Family history of ischemic heart disease and other diseases of the circulatory system
CPT/HCPCS: 96365; 93005 ×2; 85025; 80048 ×2; 36415; 80320; 80329 ×2; 85610; 80076; 85730; 81003; 80307; 96375; 99285; U0003; J2550; J3411; J7040; J7030 ×2; J3480; G0378 ×2

== ENCOUNTER 2021-06-26 08:53 | Emergency (ER) | payer OTHER, SELFPAY ==
[2021-06-26] MEDS ORDERED: NA CHLORIDE 0.9% 1,000 ML ONE ×2 (09:11→15:30)
[2021-06-26 09:25] LABS: Absolute Lymphocytes (CBC) 3.4 K/uL (0.7-4.9); Hematocrit 44.8 % (39.6-49.0); Lymphocytes % 39.3 % (15.3-44.8); MPV 9.1 fL (7.6-11.3); RBC Red Blood Cell Count 4.99 M/uL (4.33-5.43)
[2021-06-26 09:44] LABS: ALT/SGPT 48 U/L (12-78); AST/SGOT 31 U/L (15-37); BUN Blood Urea Nitrogen 8 mg/dL (7-18); Bicarbonate 26 mmol/L (21-32); Bilirubin Direct 0.2 mg/dL (0-0.2); Bilirubin Total 0.6 mg/dL (0.2-1.0); Glucose Level 99 mg/dL (74-106); Potassium 3.4 mmol/L (3.5-5.1); Protein, Total 7.2 g/dL (6.4-8.2); Sodium Level 144 mmol/L (136-145)
[2021-06-26] MEDS ORDERED: DIAZEPAM 10 MG/2 ML INJ SYRINGE ONE (10:12)
[2021-06-26 10:18] LABS: Alkaline Phosphatase 74 U/L (45-117)
--- NOTE | 2021-06-26 10:27 | EDPHYS ---
Physician Documentation [facility] Name: Luis Fernando Smith Age: 21 yrs Sex: Male : 2000 Arrival Date: 06/26/2021 Time: 08:57 Bed 14 Private MD: ED Physician Justin Wilder HPI: 06/26 09:03 This 21 yrs old Male presents to ER via EMS with complaints of Psych Problem. jmm 09:03 The patient presents to the emergency department with a history of a suicide gesture. jmm Onset: The symptoms/episode began/occurred acutely, last night. Past psychiatric history: Psychiatric medications include: vraylar. Associated signs and symptoms: Pertinent positives; suicide ideation, Pertinent negatives: fever, hallucinations, shortness of breath. This is a 21 year old male with no chronic medical conditions that presents to the ED with complaints of suicidal gesture. Patient states he has not been taking his medications. Admits to SI. Has done this in the past. . Historical: - Allergies: 09:04 NKDA; jg9 - Home Meds: 09:04 Vraylar 1.5 mg Oral cap 1 cap once daily [Active]; jg9 - PMHx: 09:04 Bipolar disorder; Schizophrenia; jg9 - Immunization history:: Adult Immunizations not up to date. - Social history:: Smoking status: Patient reports the use of cigarette tobacco products, smokes one pack cigarettes per day. ROS: 09:03 Constitutional: Negative for fever, chills, and weight loss, Cardiovascular: Negative jmm for chest pain, palpitations, and edema, Respiratory: Negative for shortness of breath, cough, wheezing, and pleuritic chest pain. 09:03 Skin: Positive for laceration(s). 09:03 All other systems are negative. Exam: 09:03 Constitutional: This is a well developed, well nourished patient who is awake, alert, jmm and in no acute distress. Head/Face: atraumatic. Eyes: EOMI, no conjunctival erythema appreciated ENT: Moist Mucus Membranes Neck: Trachea midline, Supple Chest/axilla: Normal chest wall appearance and motion. Cardiovascular: Regular rate and rhythm. No edema appreciated Respiratory: Normal respirations, no respiratory distress appreciated Abdomen/GI: Non distended, soft Back: Normal ROM 09:03 Skin: Vital Signs: 08:50 BP 121 / 67; Pulse 107; Resp 14 S; Temp 98.8(TE); Pulse Ox 100% on R/A; Weight 64.41 kg jg9 (R); Height 5 ft. 4 in. (162.56 cm); 14:00 BP 117 / 63; Pulse 96; Resp 10 S; Pulse Ox 95% on R/A; jg9 16:28 BP 126 / 71; Pulse 86; Resp 14 S; Pulse Ox 95% ; jg9 06/27 04:54 BP 116 / 68; Pulse 84; Resp 14; Temp 98.7; Pulse Ox 97% ; ds4 09:45 BP 146 / 86; Pulse 60; Resp 20; Pulse Ox 100% on R/A; ww 14:12 BP 138 / 82; Pulse 61; Resp 20; Temp 98.3; Pulse Ox 100% on R/A; ww 06/26 08:50 Body Mass Index 24.37 (64.41 kg, 162.56 cm) jg9 Laceration: 08:11 Wound Repair of 1.5cm ( 0.6in ) subcutaneous laceration to left arm. Distal jmm neuro/vascular/tendon intact. Anesthesia: Local anesthetic administered with 5 mls of 1% lidocaine. Wound prep: Simple cleansing with betadine by hi. Skin closed with 2 4-0 Prolene using simple sutures and sterile technique. Patient tolerated well. MDM: 06/26 09:03 Patient medically screened. [facility] 10:24 Data reviewed: vital signs, nurses notes. Counseling: I had a detailed discussion with [facility] the patient and/or guardian regarding: the historical points, exam findings, and any diagnostic results supporting the discharge/admit diagnosis, lab results, the need to transfer to another facility. 06/27 07:58 ED course: Patient is resting comfortably in bed. He has not required any recent kdr intervention chemically or otherwise. We are awaiting acceptance at an appropriate psychiatric care facility. 11:13 Medical screen evaluation completed. EMTALA emergency medical condition absent. ED [facility] course: I discussed the patient with Dr. Cheatham whom accepted the patient to [facility]. 06/26 09:03 Order name: Acetaminophen; Complete Time: 10:21 [facility] 06/26 09:03 Order name: Basic Metabolic Panel; Complete Time: 10:21 [facility] 06/26 09:03 Order name: CBC with Diff; Complete Time: 09:34 [facility] 06/26 09:03 Order name: ETOH Level; Complete Time: 10:04 [facility] 06/26 09:03 Order name: Hepatic Function; Complete Time: 10:21 [facility] 06/26 09:03 Order name: PT-INR; Complete Time: 11:00 [facility] 06/26 09:03 Order name: Ptt, Activated; Complete Time: 11:00 [facility] 06/26 09:03 Order name: Salicylate; Complete Time: 10:04 [facility] 06/26 09:03 Order name: Urine Drug Screen; Complete Time: 18:48 [facility] 06/26 09:04 Order name: SARS-COV-2 RT PCR (Document "Date of Onset" if Symptomatic); Complete Time: [facility] :06/26 09:06 Order name: Troponin High Sensitivity; Complete Time: 10:04 [facility] 06/26 16:59 Order name: Hand Right 3 View XRAY; Complete Time: 17:31 [facility] 06/27 04:16 Order name: ETOH Level; Complete Time: 07:39 [facility] 06/26 09:03 Order name: EKG; Complete Time: 09:04 [facility] 06/26 09:03 Order name: EKG - Nurse/Tech; Complete Time: 09:22 [facility] 06/26 09:03 Order name: IV Saline Lock; Complete Time: 09:22 [facility] 06/26 09:03 Order name: Labs collected and sent; Complete Time: 09:22 [facility] 06/26 09:03 Order name: Suicide Precautions; Complete Time: 09:22 [facility] 06/26 09:03 Order name: Suicide Screening ([place]); Complete Time: 10:13 [facility] 06/26 09:03 Order name: Urine Dipstick-Ancillary (obtain specimen); Complete Time: 09:22 [facility] 06/26 09:22 Order name: Urine Dipstick-Ancillary (obtain specimen); Complete Time: 18:03 [facility] [place] 06/26 11:44 Order name: Diet Finger Food: psych patient; Complete Time: 11:46 ss 06/26 15:41 Order name: Diet Finger Food; Complete Time: 15:42 [facility] [place] 06/27 08:11 Order name: Diet Finger Food; Complete Time: 08:11 iw Administered Medications: 06/26 09:21 Drug: NS 0.9% 1000 ml Route: IV; Rate: 1 bolus; Site: right antecubital; jg9 11:24 Follow up: IV Status: Completed infusion; IV Intake: 1000ml jg9 10:11 Drug: Valium (diazepam) 5 mg Route: IVP; Site: right antecubital; jg9 10:25 Follow up: Response: No adverse reaction; Anxiety decreased jg9 10:45 Drug: Lidocaine (1 %) 20 ml {Note: left wrist laceration.} Volume: 20 ml; Route: jg9 Infiltration; 14:34 Follow up: Response: No adverse reaction jg9 15:41 Drug: NS 0.9% 1000 ml Route: IV; Rate: 1 bolus; Site: right antecubital; jg9 16:29 Follow up: IV Status: Completed infusion; IV Intake: 1000ml jg9 06/27 14:06 Drug: Valium (diazepam) 5 mg Route: IVP; Site: right antecubital; ww Disposition: 16:28 Co-signature as Attending Physician, Justin Wilder MD I agree with the assessment and kdr plan of care. Disposition Summary: 06/26/21 10:27 Transfer Ordered Transfer Location: [facility] Facility [facility] Reason: Higher level of care [facility] Condition: Stable jm Problem: an acute exacerbation jmm Symptoms: are unchanged [facility] Accepting Physician: Dr. Cheatham(06/27/21 14:24) ww Diagnosis - Suicidal ideations jmm - Wrist Laceration jmm - Alcohol Abuse jm Forms: - Medication Reconciliation Form jm - SBAR form [facility] Signatures: Dispatcher [employer] EDJustin Wheatley MD MD kdr Mickail, Joel, PA PA [facility] Allison Kang RN RN jgMadeline Barbour RN RN ww Corrections: (The following items were deleted from the chart) 11:14 06/26 10:27 [facility] 06/27 14:24 11:14 Dr. Chaparrita laws ww
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
[2021-06-26] MEDS ORDERED: LIDOCAINE 1% 20 ML MDV ONE (10:34)
[2021-06-26 11:00] LABS: Protime INR 1.13
--- NOTE | 2021-06-26 17:25 | RAD REPORT ---
EXAM DESCRIPTION: RAD - Hand Right 3 View - 06/26/2021 5:16 pm CLINICAL HISTORY: swelling, trauma COMPARISON: No comparisons FINDINGS: Soft tissue swelling is seen along the dorsum of the hand. No fracture or dislocation.
[2021-06-26 18:40] LABS: Barbiturates NEGATIVE (NEGATIVE); Benzodiazepines NEGATIVE (NEGATIVE); Cocaine POSITIVE (NEGATIVE); METHAMPHETAM POSITIVE (NEGATIVE); Methadone NEGATIVE (NEGATIVE); Opiates NEGATIVE (NEGATIVE); Phencyclidine NEGATIVE (NEGATIVE); THC Cannibis NEGATIVE (NEGATIVE)
[2021-06-27] MEDS ORDERED: DIAZEPAM 10 MG/2 ML INJ SYRINGE ONE (13:57)
[2021-06-27 14:44] VITALS: O2SAT 100
[2021-06-27 14:46] VITALS: BP 138/82; TEMP 98.3
[2021-07-01 14:13] LABS: Urine Blood Trace-lysed (Negative); Urine Glucose Negative (Negative); Urine Protein Negative (Negative); Urine Specific Gravity 1.025 (1.005-1.030); Urine pH 5.5 (5.0-7.0)
== END 2021-06-27 14:24 ==
LOC: ER 08:53
PROC: 0JQH0ZZ Repair Left Lower Arm Subcutaneous Tissue and Fascia, Open Approach (ICD-10-PCS; principal; 2021-06-27)
DX: R45.851 Suicidal ideations (principal); S61.512A Laceration without foreign body of left wrist, initial encounter; F10.10 Alcohol abuse, uncomplicated; F20.9 Schizophrenia, unspecified; F17.210 Nicotine dependence, cigarettes, uncomplicated; Z20.822 Contact with and (suspected) exposure to COVID-19
CPT/HCPCS: 96361; 93005; 85025; 80048; 36415; 80320 ×2; 80329 ×2; 85610; 80076; 85730; 84484; 80307; 73130; 96374; 99285; 12001; U0003; J3360 ×2; J7030 ×2; 81003

== ENCOUNTER 2021-10-05 22:40 | Emergency (ER) | payer OTHER ==
--- NOTE | 2021-10-05 23:27 | ER ---
Nurse's Notes [facility] Name: Luis Fernando Smith Age: 21 yrs Sex: Male : 2000 Arrival Date: 10/05/2021 Time: 22:41 Bed Waiting Private MD: Diagnosis: ED Course: 10/05 22:41 Patient arrived in ED. mw2 22:45 Patient's name was called from ER lobby. No response. bb 22:52 Clare Casey FNP-C is [facility]. snw 22:52 Deshawn Tran MD is Attending Physician. snw 23:00 Patient's name was called from ER lobby. No response. bb 23:15 Patient's name was called from ER lobby. No response. Unable to locate patient. Will bb disposition as left without being seen by a provider. Administered Medications: No medications were administered Outcome: 23:27 Patient left the ED. bb Signatures: Clare Casey FNP-C FNP-Chanda Peralta RN RN bb Dwaine Kahn mw2
== END 2021-10-05 23:27 | disposition left against medical advice (07) ==
LOC: ER 22:40
DX: Z02.9 Encounter for administrative examinations, unspecified (principal)

== ENCOUNTER 2021-10-12 14:21 | Emergency (ER) | payer OTHER ==
--- NOTE | 2021-10-12 15:41 | ER ---
Nurse's Notes [facility] Name: Luis Fernando Smith Age: 21 yrs Sex: Male : 2000 Arrival Date: 10/12/2021 Time: 14:24 Bed Waiting Private MD: Diagnosis: ED Course: 10/12 14:24 Patient arrived in ED. rg4 14:54 [facility] eusebia 14:54 Trever Burt MD is Attending Physician. [facility] 15:31 Patient's name was called from ER everette. No response. kb3 Administered Medications: No medications were administered Outcome: 15:40 Patient left the ED. ss Signatures: Kenyon Young PA PA jmm Smirch, Shelby, HONEY RN Stella Summers rg4 Aissatou Ledesma RN RN kb3
== END 2021-10-12 15:40 | disposition left against medical advice (07) ==
LOC: ER 14:21
DX: Z02.9 Encounter for administrative examinations, unspecified (principal)

== ENCOUNTER 2021-10-14 14:26 | Emergency (ER) | payer OTHER ==
--- NOTE | 2021-10-14 14:46 | ER ---
Nurse's Notes [facility] Name: Luis Fernando Smith Age: 21 yrs Sex: Male : 2000 Arrival Date: 10/14/2021 Time: 14:28 Bed 10 Private MD: Diagnosis: Low back pain Presentation: 10/14 14:32 Chief complaint: Right low back pain after lifting weights at gym 5 days ago. hb Coronavirus screen: At this time, the client does not indicate any symptoms associated with coronavirus-19. Ebola Screen: No symptoms or risks identified at this time. Initial Sepsis Screen: Does the patient meet any 2 criteria? No. Patient's initial sepsis screen is negative. Does the patient have a suspected source of infection? No. Patient's initial sepsis screen is negative. Risk Assessment: Do you want to hurt yourself or someone else? Patient reports no desire to harm self or others. Onset of symptoms was October 09, 2021. 14:32 Method Of Arrival: Ambulatory 14:32 Acuity: TATO 4 hb Triage Assessment: 16:00 General: Appears in no apparent distress. Behavior is calm, cooperative. iw Musculoskeletal: Range of motion: intact in all extremities. Historical: - Allergies: 14:34 NKDA; hb - Home Meds: 14:34 Vraylar 1.5 mg Oral cap 1 cap once daily [Active]; hb - PMHx: 14:34 Bipolar disorder; Schizophrenia; hb - Immunization history:: Adult Immunizations up to date. - Social history:: Smoking status: Patient reports the use of cigarette tobacco products, denies chronic smoking, but will smoke occasionally. Screenin:07 Abuse screen: Denies threats or abuse. Denies injuries from another. Nutritional iw screening: No deficits noted. Tuberculosis screening: No symptoms or risk factors identified. Fall Risk None identified. Assessment: 16:00 General: Appears in no apparent distress. Behavior is calm, cooperative. Pain: iw Complains of pain in right low back. Neuro: Level of Consciousness is awake, alert, obeys commands, Oriented to person, place, time, situation. Cardiovascular: Patient's skin is warm and dry. Respiratory: Respiratory effort is even, unlabored, Respiratory pattern is regular, symmetrical. Vital Signs: 14:32 BP 139 / 78; Pulse 76; Resp 16; Temp 97.4; Pulse Ox 100% on R/A; Weight 67.59 kg; hb Height 5 ft. 4 in. (162.56 cm); Pain 5/10; 14:32 Body Mass Index 25.58 (67.59 kg, 162.56 cm) hb ED Course: 14:28 Patient arrived in ED. mr 14:31 Kevin Perry is PHCP. jl9 14:31 Alexandro Brody DO is Attending Physician. jl9 14:32 Arm band placed on. hb 14:33 Triage completed. hb 15:53 Susan Campos, RN is Primary Nurse. iw 16:00 Patient has correct armband on for positive identification. iw 16:08 No provider procedures requiring assistance completed. Patient did not have IV access iw during this emergency room visit. Administered Medications: 16:01 Drug: Cyclobenzaprine 10 mg Route: PO; iw 16:05 Follow up: Response: No adverse reaction iw 16:01 Drug: Ibuprofen 600 mg Route: PO; iw 16:05 Follow up: Response: No adverse reaction iw Medication: 16:00 VIS not applicable for this client. iw Outcome: 14:46 Discharge ordered by MD. bell9 16:08 Patient left the ED. iw 16:08 Discharged to home ambulatory. iw 16:08 Condition: good 16:08 Discharge instructions given to patient, Instructed on discharge instructions, follow up and referral plans. medication usage, Demonstrated understanding of instructions, follow-up care, medications, Prescriptions given X 2. Signatures: Dannielel Masters mr Susan Campos, HONEY MÉNDEZ Betty Brasher RN RN Kevin Perry jl9
--- NOTE | 2021-10-14 14:47 | EDPHYS ---
Physician Documentation [facility] Name: Luis Fernando Smith Age: 21 yrs Sex: Male : 2000 Arrival Date: 10/14/2021 Time: 14:28 Bed 10 Private MD: ED Physician Alexandro Brody HPI: 10/14 14:42 This 21 yrs old Male presents to ER via Ambulatory with complaints of Back jl9 Pain. Patient reports overextending his back while working out. . 14:42 The patient presents with pain and spasm, stiffness, tightness. The symptoms are jl9 located in the low back. Onset: The symptoms/episode began/occurred 5 day(s) ago. The pain does not radiate. Associated signs and symptoms: Pertinent negatives: abdominal pain, numbness, tingling. The problem was sustained when lifting heavy object. Modifying factors: The patient symptoms are alleviated by remaining still, rest, the patient symptoms are aggravated by any movement. Severity of symptoms: in the emergency department the symptoms a " 4" out of "10". Historical: - Allergies: 14:34 NKDA; hb - Home Meds: 14:34 Vraylar 1.5 mg Oral cap 1 cap once daily [Active]; hb - PMHx: 14:34 Bipolar disorder; Schizophrenia; hb - Immunization history:: Adult Immunizations up to date. - Social history:: Smoking status: Patient reports the use of cigarette tobacco products, denies chronic smoking, but will smoke occasionally. ROS: 14:44 Constitutional: Negative for fever, chills, and weight loss, Eyes: Negative for injury, jl9 pain, redness, and discharge, ENT: Negative for injury, pain, and discharge, Neck: Negative for injury, pain, and swelling, Cardiovascular: Negative for chest pain, palpitations, and edema, Respiratory: Negative for shortness of breath, cough, wheezing, and pleuritic chest pain, Abdomen/GI: Negative for abdominal pain, nausea, vomiting, diarrhea, and constipation. 14:44 : Negative for injury, bleeding, discharge, and swelling, MS/Extremity: Negative for injury and deformity, Skin: Negative for injury, rash, and discoloration, Neuro: Negative for headache, weakness, numbness, tingling, and seizure, Psych: Negative for depression, anxiety, suicide ideation, homicidal ideation, and hallucinations, Allergy/Immunology: Negative for hives, rash, and allergies, Endocrine: Negative for neck swelling, polydipsia, polyuria, polyphagia, and marked weight changes, Hematologic/Lymphatic: Negative for swollen nodes, abnormal bleeding, and unusual bruising. 14:44 Back: Positive for pain with movement. Exam: 14:44 Constitutional: This is a well developed, well nourished patient who is awake, alert, jl9 and in no acute distress. Head/Face: Normocephalic, atraumatic. Eyes: Pupils equal round and reactive to light, extra-ocular motions intact. Lids and lashes normal. Conjunctiva and sclera are non-icteric and not injected. Cornea within normal limits. Periorbital areas with no swelling, redness, or edema. ENT: Mucous membranes moist. Neck: Trachea midline, no thyromegaly or masses palpated, and no cervical lymphadenopathy. Supple, full range of motion without nuchal rigidity, or vertebral point tenderness. No Meningismus. Chest/axilla: Normal chest wall appearance and motion. Nontender with no deformity. No lesions are appreciated. Cardiovascular: Regular rate and rhythm with a normal S1 and S2. No gallops, murmurs, or rubs. Normal PMI, no JVD. No pulse deficits. Respiratory: Lungs have equal breath sounds bilaterally, clear to auscultation and percussion. No rales, rhonchi or wheezes noted. No increased work of breathing, no retractions or nasal flaring. Abdomen/GI: Soft, non-tender, with normal bowel sounds. No distension or tympany. No guarding or rebound. No evidence of tenderness throughout. 14:44 Skin: Warm, dry with normal turgor. Normal color with no rashes, no lesions, and no evidence of cellulitis. MS/ Extremity: Pulses equal, no cyanosis. Neurovascular intact. Full, normal range of motion. Neuro: Awake and alert, GCS 15, oriented to person, place, time, and situation. Cranial nerves II-XII grossly intact. Motor strength 5/5 in all extremities. Sensory grossly intact. Cerebellar exam normal. Normal gait. Psych: Awake, alert, with orientation to person, place and time. Behavior, mood, and affect are within normal limits. 14:44 Back: pain, that is mild, ROM is painful, muscle spasm, is appreciated in the right low back. Vital Signs: 14:32 BP 139 / 78; Pulse 76; Resp 16; Temp 97.4; Pulse Ox 100% on R/A; Weight 67.59 kg; hb Height 5 ft. 4 in. (162.56 cm); Pain 5/10; 14:32 Body Mass Index 25.58 (67.59 kg, 162.56 cm) hb MDM: 14:45 Data reviewed: vital signs, nurses notes. Counseling: I had a detailed discussion with jl9 the patient and/or guardian regarding: the historical points, exam findings, and any diagnostic results supporting the discharge/admit diagnosis, the need for outpatient follow up. 14:46 Patient medically screened. jl9 Administered Medications: 16:01 Drug: Cyclobenzaprine 10 mg Route: PO; iw 16:05 Follow up: Response: No adverse reaction iw 16:01 Drug: Ibuprofen 600 mg Route: PO; iw 16:05 Follow up: Response: No adverse reaction iw Disposition: 21:30 Co-signature as Attending Physician, Alexandro Brody DO I agree with the assessment and ms3 plan of care. Disposition Summary: 10/14/21 14:46 Discharge Ordered Location: Home jl9 Condition: Stable jl9 Diagnosis - Low back pain jl9 Followup: jl9 - With: Private Physician - When: 1 - 2 days - Reason: Recheck today's complaints, Continuance of care, Re-evaluation by your physician Discharge Instructions: - Discharge Summary Sheet jl9 - Muscle Cramps and Spasms jl9 Forms: - Medication Reconciliation Form jl9 - Work release form iw - Thank You Letter jl9 - Antibiotic Education jl9 - Prescription Opioid Use jl9 Prescriptions: - Ibuprofen 600 mg Oral Tablet - take 1 tablet by ORAL route every 6 hours As needed take with food; 12 tablet; jl9 Refills: 0, Product Selection Permitted - Cyclobenzaprine 10 mg Oral Tablet - take 1 tablet by ORAL route every 8 hours As needed; 12 tablet; Refills: 0, jl9 Product Selection Permitted Signatures: Susan Campos RN RN Betty Brasher RN RN Alexandro Perez DO DO ms3 Kevin Perry jl9
[2021-10-14] MEDS ORDERED: CYCLOBENZAPRINE 10 MG TAB ONE (16:04)
[2021-10-14] MEDS ORDERED: IBUPROFEN 200 MG TAB PO ONE (16:04)
[2021-10-14 16:45] VITALS: BP 139/78; TEMP 97.4; O2SAT 100
== END 2021-10-14 16:08 | disposition home or self-care (01) ==
LOC: ER 14:26
DX: M54.50 Low back pain, unspecified (principal); F20.9 Schizophrenia, unspecified

== ENCOUNTER 2021-10-22 15:21 | Emergency (ER) | payer OTHER ==
--- NOTE | 2021-10-22 16:24 | RAD REPORT ---
EXAM DESCRIPTION: CT - CTFB CLINICAL HISTORY: trauma, eye pain COMPARISON: <Comparisons> TECHNIQUE: Axial 2 mm thick images of the face were obtained with sagittal and coronal reconstructio n images. All CT scans are performed using dose optimization technique as appropriate and may include automated exposure control or mA/KV adjustment according to patient size. FINDINGS: Mildly displaced fracture of the frontal process of the left maxilla.The mandible is intac t. Left preseptal periorbital swelling. Left inferior orbital wall fracture. There is a fracture of the medial left orbital wall is well.Ther e is herniation of fat into the medial orbital wall fractures. The extraocular muscles appear intact. No retro conal hematoma.Paranasal sinus thickening including the ethmoid air cells, left maxillary s inus, left frontal sinus. IMPRESSION: Left orbital floor, medial orbital wall, and left frontal process of the maxilla fractur es. Extraocular muscles are intact. No retroconal hematoma.
--- NOTE | 2021-10-22 16:25 | RAD REPORT ---
EXAM DESCRIPTION: CT - Head Brain Wo Cont - 10/22/2021 4:10 pm CLINICAL HISTORY: trauma, headache, dizziness COMPARISON: No comparisonsFacial Bones W/ Mpr dated 10/22/2021 TECHNIQUE: All CT scans are performed using dose optimization technique as appropriate and may inclu de automated exposure control or mA/KV adjustment according to patient size. FINDINGS: No intracranial hemorrhage, hydrocephalus or extra-axial fluid collection.No areas of brai n edema or evidence of midline shift. Paranasal sinus thickening. The calvarium is intact. IMPRESSION: No acute intracranial abnormality. Reference facial CT for known facial fractures.
--- NOTE | 2021-10-22 17:37 | EDPHYS ---
Physician Documentation [facility] Name: Luis Fernando Smith Age: 21 yrs Sex: Male : 2000 Arrival Date: 10/22/2021 Time: 15:22 Bed 9 Private MD: ED Physician Justin Wilder HPI: 10/22 23:26 This 21 yrs old Male presents to ER via Ambulatory with complaints of Eye kb Injury - fall 4 days ago, Headache, Dizziness. 23:26 The patient is experiencing pain, redness, The patient sustained contusion, to the left kb eye, caused by "fell onto concrete". Onset: The symptoms/episode began/occurred 4 day(s) ago. Duration: the symptoms are continuous. Aggravated by nothing. Alleviated by nothing. Associated signs and symptoms: Pertinent positives: dizziness, headache, Pertinent negatives: chills, ear ache, fever, runny nose. Patient wears glasses. Severity of symptoms: At their worst the symptoms were moderate in the emergency department the symptoms are unchanged. The patient has not experienced similar symptoms in the past. The patient has not recently seen a physician. pt reports he fell onto the concrete between 3 and 7 days ago and hit his eye. Reports intermittent headache and dizziness. States he was told he had to come get evaluated by his boss before he could return to work. Historical: - Allergies: 15:46 NKDA; ap3 - Home Meds: 15:46 Vraylar 1.5 mg Oral cap 1 cap once daily [Active]; ap3 - PMHx: 15:46 Bipolar disorder; Schizophrenia; ap3 - Immunization history:: Client reports having NOT received the Covid vaccine. - Social history:: Smoking status: Patient reports the use of cigarette tobacco products, denies chronic smoking, but will smoke occasionally. ROS: 23:24 Constitutional: Negative for fever, chills, and weight loss. kb 23:24 Eyes: Positive for swelling. 23:24 Skin: Positive for ecchymosis, swelling, of the left eye. 23:24 Neuro: Positive for dizziness, headache. 23:24 All other systems are negative. Exam: 23:24 Visual Acuity: I have reviewed the nursing documentation. kb 23:24 Constitutional: This is a well developed, well nourished patient who is awake, alert, and in no acute distress. Head/Face: Normocephalic, atraumatic. ENT: Moist Mucous membranes Respiratory: Respirations even and unlabored. No increased work of breathing. Talking in full sentences MS/ Extremity: Pulses equal, no cyanosis. Neurovascular intact. Full, normal range of motion. Neuro: Awake and alert, GCS 15, oriented to person, place, time, and situation. Moves all extremities. Normal gait. Psych: Awake, alert, with orientation to person, place and time. Behavior, mood, and affect are within normal limits. 23:24 Eyes: Periorbital structures: swelling, that is moderate, on the left upper eyelid and left lower eyelid, Pupils: equal, round, and reactive to light and accomodation, Extraocular movements: intact throughout, Conjunctiva: subconjunctival hemorrhage(s), seen in the left eye. 23:24 Skin: injury, contusion(s), that are superficial, of the left eye. Vital Signs: 15:43 BP 164 / 96; Pulse 83; Resp 17; Temp 99.3(TE); Pulse Ox 100% ; Weight 67.59 kg; Height ap3 5 ft. 4 in. (162.56 cm); Pain 2/10; 18:11 BP 142 / 80; Pulse 82; Resp 16; Pulse Ox 100% ; Pain 5/10; kb3 15:43 Body Mass Index 25.58 (67.59 kg, 162.56 cm) ap3 Visual Acuity: 18:00 Left Eye Visual acuity 20/50, Pupil size 3 mm, Normal; Right Eye Visual acuity 20/40, kb3 Pupil size 3 mm, Normal; Both Eyes Visual acuity 20/50; Without Lenses; MDM: 15:59 Patient medically screened. kb 17:13 Physician consultation: Jenni Horowitz MD was called at 17:14, no answer, message left. kb 17:34 Data reviewed: vital signs, nurses notes. Data interpreted: Pulse oximetry: on room air kb is 100 %. Interpretation: normal. Counseling: I had a detailed discussion with the patient and/or guardian regarding: the historical points, exam findings, and any diagnostic results supporting the discharge/admit diagnosis, radiology results, the need for outpatient follow up, an ENT specialist, to return to the emergency department if symptoms worsen or persist or if there are any questions or concerns that arise at home. Physician consultation: Jenni Horowitz MD was contacted at 17:34, regarding consult, patient's condition, and will see patient in office. 10/22 15:50 Order name: CT Head Brain wo Cont; Complete Time: 16:26 kb 10/22 15:50 Order name: Facial Bones W/O Con CT; Complete Time: 16:25 kb 10/22 17:33 Order name: Visual Acuity; Complete Time: 18:06 kb Administered Medications: No medications were administered Disposition: 18:52 Co-signature as Attending Physician, Justin Wilder MD I agree with the assessment and kdr plan of care. Disposition Summary: 10/22/21 17:36 Discharge Ordered Location: Home kb Condition: Stable kb Diagnosis - left orbital floor fracture kb - medial orbital wall fracture kb - left frontal process of maxilla fracture kb - subconjunctival hemorrhage kb Followup: kb - With: Emergency Department - When: As needed - Reason: Worsening of condition Followup: kb - With: Private Physician - When: 2 - 3 days - Reason: Recheck today's complaints, Continuance of care, Re-evaluation by your physician Followup: kb - With: Jenni Horowitz MD - When: 1 - 2 days - Reason: Recheck today's complaints Discharge Instructions: - Discharge Summary Sheet kb - Orbital Floor Fracture kb - Subconjunctival Hemorrhage kb - Head Injury, Adult, [id number] kb Forms: - Medication Reconciliation Form kb - Work release form kb - Thank You Letter kb - Antibiotic Education kb - Prescription Opioid Use kb Signatures: Dispatcher [employer] EDLanie Donato, THOMPSON-C THOMPSON-Justin Foreman MD MD kdr Prokisch, Amanda, RN RN ap3
--- NOTE | 2021-10-22 17:37 | ER ---
Nurse's Notes [facility] Name: Luis Fernando Smith Age: 21 yrs Sex: Male : 2000 Arrival Date: 10/22/2021 Time: 15:22 Bed 9 Private MD: Diagnosis: left orbital floor fracture;medial orbital wall fracture;left frontal process of maxilla fracture;subconjunctival hemorrhage Presentation: 10/22 15:43 Chief complaint: Patient states: he tripped and fell at work 4 days ago, and fell onto ap3 his left eye area. patient presents to the ED with bruising to his left eye and redness of his sclera. patient reports headache and dizziness since the fall. Coronavirus screen: At this time, the client does not indicate any symptoms associated with coronavirus-19. Ebola Screen: No symptoms or risks identified at this time. Mechanism of Injury: Fall. The patient denies any loss of vision. Initial Sepsis Screen: Does the patient meet any 2 criteria? No. Patient's initial sepsis screen is negative. Does the patient have a suspected source of infection? No. Patient's initial sepsis screen is negative. Risk Assessment: Do you want to hurt yourself or someone else? Patient reports no desire to harm self or others. Onset of symptoms was October 18, 2021. 15:43 Method Of Arrival: Ambulatory ap3 15:43 Acuity: TATO 3 ap3 Triage Assessment: 15:46 General: Appears in no apparent distress. Behavior is calm, cooperative. Pain: ap3 Complains of pain in left eye. EENT: Sclera/Cornea are reddened in outer aspect of conjuctiva of left eye, iris of left eye and inner aspect of conjunctiva of left eye. Derm: Bruising that is dark purple, on left eye. Historical: - Allergies: 15:46 NKDA; ap3 - Home Meds: 15:46 Vraylar 1.5 mg Oral cap 1 cap once daily [Active]; ap3 - PMHx: 15:46 Bipolar disorder; Schizophrenia; ap3 - Immunization history:: Client reports having NOT received the Covid vaccine. - Social history:: Smoking status: Patient reports the use of cigarette tobacco products, denies chronic smoking, but will smoke occasionally. Screenin:47 Abuse screen: Denies threats or abuse. Nutritional screening: No deficits noted. ap3 Tuberculosis screening: No symptoms or risk factors identified. 18:00 Fall Risk None identified. kb3 Assessment: 16:30 General: See triage note. kb3 16:30 EENT: Eyes Swelling, scleral hemorrhage, periorbital bruising noted to left eye. Pt kb3 reports he fell onto the concrete 4 days ago. Pt reports pain to left eye and left frontal sinus area. Denies pain in jaw, teeth, mouth or to right side of face. Vital Signs: 15:43 BP 164 / 96; Pulse 83; Resp 17; Temp 99.3(TE); Pulse Ox 100% ; Weight 67.59 kg; Height ap3 5 ft. 4 in. (162.56 cm); Pain 2/10; 18:11 BP 142 / 80; Pulse 82; Resp 16; Pulse Ox 100% ; Pain 5/10; kb3 15:43 Body Mass Index 25.58 (67.59 kg, 162.56 cm) ap3 Visual Acuity: 18:00 Left Eye Visual acuity 20/50, Pupil size 3 mm, Normal; Right Eye Visual acuity 20/40, kb3 Pupil size 3 mm, Normal; Both Eyes Visual acuity 20/50; Without Lenses; ED Course: 15:22 Patient arrived in ED. as 15:46 Triage completed. ap3 15:47 Arm band placed on right wrist. ap3 15:50 Lanie Rodas FNP-C is PHCP. kb 15:50 Justin Wilder MD is Attending Physician. kb 16:10 CT Head Brain wo Cont In Process Unspecified. EDMS 16:10 Facial Bones W/O Con CT In Process Unspecified. EDMS 16:59 Aissatou Ledesma, RN is Primary Nurse. kb3 17:00 Patient has correct armband on for positive identification. Bed in low position. Adult kb3 w/ patient. 17:00 No provider procedures requiring assistance completed. Patient did not have IV access kb3 during this emergency room visit. 17:37 Jenni Horowitz MD is Referral Physician. kb Administered Medications: No medications were administered Medication: 18:00 VIS not applicable for this client. kb3 Outcome: 17:36 Discharge ordered by . kb 18:11 Discharged to home ambulatory. kb3 18:11 Condition: stable 18:11 Discharge instructions given to patient, Instructed on discharge instructions, follow up and referral plans. Demonstrated understanding of instructions, follow-up care. 18:12 Patient left the ED. kb3 Signatures: Dispatcher [employer] Lanie Stallings, MAURYC THOMPSON-Shantelle Garsia Amanda, RN RN ap3 Aissatou Ledesma RN RN kb3
[2021-10-22 20:04] VITALS: TEMP 99.3; O2SAT 100
[2021-10-22 20:07] VITALS: BP 142/80
== END 2021-10-22 18:12 | disposition home or self-care (01) ==
LOC: ER 15:21
DX: S02.32XA Fracture of orbital floor, left side, initial encounter for closed fracture (principal); S02.832A Fracture of medial orbital wall, left side, initial encounter for closed fracture; S02.40DA Maxillary fracture, left side, initial encounter for closed fracture; H11.32 Conjunctival hemorrhage, left eye; F17.210 Nicotine dependence, cigarettes, uncomplicated; F20.9 Schizophrenia, unspecified
CPT/HCPCS: 70450; 70486; 76377

== ENCOUNTER 2022-01-05 22:00 | Emergency (ER) | payer OTHER ==
--- OUTSIDE RECORDS SUMMARY | 2022-01-05 22:05 | XMS REPORT | Continuity of Care Document ---
:2000 Author Organization [facility] t Address [address] [place] [address] Care Team Providers Name Role Phone DARLEEN HOWARD Primary Care Physician Unavailable DR DARLEEN HOWARD Attending Clinician Unavailable [phone] Attending Clinician Unavailable [id number] Attending Clinician Unavailable DR DARLEEN HOWARD Admitting Clinician Unavailable Payers Payer Name Policy Type Policy Number Effective Date Expiration Date Formerly [facility] [id number] [facility] [id number] CHOICE [facility] Problems Condition Condition Condition Status Onset Resolution Last Treating Co mments Source Name Details Category Date Date Treatment Clinician Date Fractured Fractured Problem Active 2013-032017-09-02 Mem[facility] nasal nasal 04-08 15:05:38 l bones bones 00:00: Destin (disorder) (disorder) 00 Active 02/05/2014 Problem 09/02/2017 Data migrated from [email or web address] on 07/28/14. [facility] Gastroesop Gastroeso Problem Active 2017-09-02 Memoria hageal phageal 15:05:38 l reflux reflux Bailey disease disease (disorder) (disorder) Active Problem 09/02/2017 Data migrated from [employer] [facility] on 07/28/14. [facility] Upper Upper Problem Resolve 2012-032017-09-02 2017-09-02 [facility] respirator respirator d 03-01 15:05:38 15:05:38 l y y 00:00: Bailey infection infection 00 (disorder) (disorder) Resolved 12/30/2012 Problem 09/02/2017 Data migrated from [facility] [facility] on 09/15/14.<b r/>Data migrated from [employer] [facility] on 09/14/14. [facility] Backache Backache Problem Resolve 2017-09-02 2017-09-02 Memoria (finding) (finding) d 4-12 15:05:38 15:05:38 l Resolved 00:00: Bailey 06/10/2012 00 Problem 09/02/2017 Data migrated from [facility] on 09/15/14.<b r/>Data migrated from [facility] on 09/14/14. [facility] Acute Acute Problem Resolve 2011-032017-09-02 2017-09-02 Memoria upper upper d 03-09 15:05:38 15:05:38 l respirator respirator 00:00: He rmann y y 00 infection infection (disorder) (disorder) Resolved 01/08/2012 Problem 09/02/2017 Data migrated from [facility] on 09/15/14.<b r/>Data migrated from [facility] on 09/14/14. [facility] Group Allergies, Adverse Reactions, Alerts Allergy Allergy Status Severity Reaction(s) Onset Inactive Treating Comm ents Source Name Type Date Date Clinician No Known MA Active UNKNOWN [facility] Social History Smoking Status Start Date Stop Date Source Social History 2017-05-28 12:39:50 [facility] Her hawkins Medications This patient has no known medications. Immunizations Ordered Immunization Filled Immunization Date Status Commen ts Source Name Name meningococcal 2012-10-28 Completed [facility] conjugate 05:00:00 Bailey vaccine<sup>2</sup> influenza virus 2012-10-28 Completed [facility] vaccine, live, 05:00:00 Destin trivalent<sup>3</sup> Hx influenza 2012-10-28 Completed [facility] vaccine-unspecified<s 05:00:00 Her hawkins up>4</sup> human papillomavirus 2012-10-28 Completed [facility]ay [facility] vaccine<sup>5</sup> 05:00:00 Miladys nn diphtheria/pertussis, 2012-10-28 Completed Mem orial acel/tetanus 05:00:00 Destin adult<sup>1</sup> diphtheria/pertussis, 2012-10-28 Completed Mem orial acel/tetanus 05:00:00 Destin adult<sup>1</sup> meningococcal 2012-10-28 Completed [facility] conjugate 05:00:00 Bailey vaccine<sup>2</sup> influenza virus 2012-10-28 Completed [facility] vaccine, live, 05:00:00 [place]in trivalent<sup>3</sup> Hx influenza 2012-10-28 Completed [facility] vaccine-unspecified<s 05:00:00 Her hawkins up>4</sup> human papillomavirus 2012-10-28 Completed [facility]ay rial vaccine<sup>5</sup> 05:00:00 Miladys nn Hx pneumococcal 2011-01-26 Completed [facility] vaccine<sup>6</sup> 18:29:21 Miladys nn Hx pneumococcal 2011-01-26 Completed [facility] vaccine<sup>6</sup> 18:29:21 Miladys nn varicella virus 2008-07-04 Completed [facility] vaccine<sup>10</sup> 17:25:17 Herm evelyne varicella virus 2008-07-04 Completed [facility] vaccine<sup>10</sup> 17:25:17 Herm evelyne Hx hepatitis A 2006-08-12 Completed [facility] vaccine<sup>12</sup> 17:25:17 Herm evelyne Hx hepatitis A 2006-08-12 Completed [facility] vaccine<sup>12</sup> 17:25:17 Herm evelyne Hx hepatitis A 2006-01-14 Completed [facility] vaccine<sup>13</sup> 18:25:17 Herm evelyne Hx hepatitis A 2006-01-14 Completed [facility] vaccine<sup>13</sup> 18:25:17 Herm evelyne Hx poliovirus 2003-01-15 Completed [facility] vaccine-unspecified<s 18:25:17 Her hawkins up>14</sup> measles/mumps/rubella 2003-01-15 Completed Mem orial virus 18:25:17 Bailey vaccine<sup>18</sup> Hx diphth/pertussis, 2003-01-15 Completed Vinay rial acellular/tetanus<sup 18:25:17 Her hawkins >20</sup> Hx poliovirus 2003-01-15 Completed [facility] vaccine-unspecified<s 18:25:17 Her hawkins up>14</sup> measles/mumps/rubella 2003-01-15 Completed Mem orial virus 18:25:17 Bailey vaccine<sup>18</sup> Hx diphth/pertussis, 2003-01-15 Completed Vinay rial acellular/tetanus<sup 18:25:17 Her hawkins >20</sup> Hx poliovirus 2000-04-13 Completed [facility] vaccine-unspecified<s 18:25:17 Her hawkins up>15</sup> Hx hepatitis B 2000-04-13 Completed [facility] vaccine<sup>25</sup> 18:25:17 Herm evelyne Hx haemophilus b 2000-04-13 Completed [facility] vaccine<sup>28</sup> 18:25:17 Herm evelyne Hx diphth/pertussis, 2000-04-13 Completed Vinay rial acellular/tetanus<sup 18:25:17 Her hawkins >21</sup> Hx poliovirus 2000-04-13 Completed [facility] vaccine-unspecified<s 18:25:17 Her hawkins up>15</sup> Hx hepatitis B 2000-04-13 Completed [facility] vaccine<sup>25</sup> 18:25:17 Herm evelyne Hx haemophilus b 2000-04-13 Completed [facility] vaccine<sup>28</sup> 18:25:17 Herm evelyne Hx diphth/pertussis, 2000-04-13 Completed Vinay rial acellular/tetanus<sup 18:25:17 Her hawkins >21</sup> varicella virus 2000-01-14 Completed [facility] vaccine<sup>11</sup> 18:25:17 Herm evelyne measles/mumps/rubella 2000-01-14 Completed Mem orial virus 18:25:17 Destin vaccine<sup>19</sup> Hx pneumococcal 2000-01-14 Completed [facility] vaccine<sup>7</sup> 18:25:17 Miladys nn varicella virus 2000-01-14 Completed [facility] vaccine<sup>11</sup> 18:25:17 Herm evelyne measles/mumps/rubella 2000-01-14 Completed Mem orial virus 18:25:17 Destin vaccine<sup>19</sup> Hx pneumococcal 2000-01-14 Completed [facility] vaccine<sup>7</sup> 18:25:17 Miladys nn Hx pneumococcal 1999 Completed [facility] vaccine<sup>8</sup> 17:25:17 Miladys nn Hx pneumococcal 1999 Completed [facility] vaccine<sup>8</sup> 17:25:17 Miladys nn Hx haemophilus b 1999 Completed [facility] vaccine<sup>29</sup> 17:25:17 Herm evelyne Hx diphth/pertussis, 1999 Completed Vinay rial acellular/tetanus<sup 17:25:17 Her hawkins >22</sup> Hx pneumococcal 1999 Completed [facility] vaccine<sup>9</sup> 17:25:17 Miladys nn Hx haemophilus b 1999 Completed [facility] vaccine<sup>29</sup> 17:25:17 Herm evelyne Hx diphth/pertussis, 1999 Completed Vinay rial acellular/tetanus<sup 17:25:17 Her hawkins >22</sup> Hx pneumococcal 1999 Completed [facility] vaccine<sup>9</sup> 17:25:17 Miladys nn Hx poliovirus 1999 Completed [facility] vaccine-unspecified<s 17:25:17 Her hawkins up>16</sup> Hx haemophilus b 1999 Completed [facility] vaccine<sup>30</sup> 17:25:17 Herm evelyne Hx diphth/pertussis, 1999 Completed Vinay rial acellular/tetanus<sup 17:25:17 Her hawkins >23</sup> Hx poliovirus 1999 Completed [facility] vaccine-unspecified<s 17:25:17 Her hawkins up>16</sup> Hx haemophilus b 1999 Completed [facility] vaccine<sup>30</sup> 17:25:17 Herm evelyne Hx diphth/pertussis, 1999 Completed Vinay rial acellular/tetanus<sup 17:25:17 Her hawkins >23</sup> Hx poliovirus 1999 Completed [facility] vaccine-unspecified<s 18:25:17 Her hawkins up>17</sup> Hx hepatitis B 1999 Completed [facility] vaccine<sup>26</sup> 18:25:17 Herm evelyne Hx haemophilus b 1999 Completed [facility] vaccine<sup>31</sup> 18:25:17 Herm evelyne Hx diphth/pertussis, 1999 Completed Vinay rial acellular/tetanus<sup 18:25:17 Her hawkins >24</sup> Hx poliovirus 1999 Completed [facility] vaccine-unspecified<s 18:25:17 Her hawkins up>17</sup> Hx hepatitis B 1999 Completed [facility] vaccine<sup>26</sup> 18:25:17 Herm evelyne Hx haemophilus b 1999 Completed [facility] vaccine<sup>31</sup> 18:25:17 Herm evelyne Hx diphth/pertussis, 1999 Completed Vinay rial acellular/tetanus<sup 18:25:17 Her hawkins >24</sup> Hx hepatitis B 1999 Completed [facility] vaccine<sup>27</sup> 18:25:17 Herm evelyne Hx hepatitis B 1999 Completed [facility] vaccine<sup>27</sup> 18:25:17 Herm evelyne Vital Signs Vital Name Observation Time Observation Value Comments Source Respitory Rate 2017-05-28 12:34:00 Nader al Bailey Height 2017-05-28 12:34:00 163.83 cm [facility] Weight 2017-05-28 12:34:00 [facility] BMI Calculated 2017-05-28 12:34:00 Memori al [place] Systolic (mm Hg) 2017-05-28 12:34:00 Vinay rial Bailey Diastolic (mm Hg) 2017-05-28 12:34:00 Mem orial [place] Heart Rate 2017-05-28 12:34:00 [facility] Procedures This patient has no known procedures. Encounters Start End Encounter Admission Attending Care Care Encounter Source Date/Time Date/Time Type Type Clinicians Facility Department ID 2022-01-01 Outpatient ELCAMPO ELCAMPO [id number] El 16:22:26 [id number] [facility] 2022-01-01 [facility] [id number] [place] 09:02:34 [id number] [place] 2021-12-31 [facility] [id number] 09:58:20 [id number] [place] 2021-10-25 Outpatient ELCAMPO ELCAMPO [id number] El 10:24:07 [id number] [facility] 2022-01-01 2022-01-01 Outpatient M BACCAM DARLEEN [facility]LC[facility]PO [facility] [id number] El 16:23:00 21:20:00 [id number] [place] [facility] [id number] [facility] 2021-10-27 2021-10-27 Outpatient M BACCAM DARLEEN [facility] [id number] El 10:24:00 10:24:00 [id number] [place] [id number] [facility] 2017-05-27 2017-05-28 Outpatient [facility]Flavo [facility] [id number] Memoria 19:45:00 04:59:59 r Medicine El 02 nereida Marianoann 2017-05-27 2017-05-28 Outpatient [facility]Flavo [facility] [id number] Memoria 19:45:00 04:59:59 r Medicine El 02 nereida Gonzalez Destin 2017-05-27 2017-05-27 Outpatient [facility] [id number] 14:45:00 23:59:59 02 2017-05-27 2017-05-27 Outpatient [facility] [id number] Memoria 14:45:00 14:45:00 02 nereida Weir 2016-05-08 2016-05-08 Outpatient [facility] [id number] Memoria 13:30:00 13:30:00 01 nereida Weir 2016-05-08 2016-05-08 Outpatient [facility] [id number] Memoria 13:30:00 13:30:00 01 nereida Weir Results This patient has no known results.
--- NOTE | 2022-01-05 23:25 | ER ---
Nurse's Notes [facility] Name: Luis Fernando Smith Age: 21 yrs Sex: Male : 2000 Arrival Date: 01/05/2022 Time: 22:06 Bed 20 Private MD: Diagnosis: Rib Contusion, chest wall contusion Presentation: 01/05 22:16 Chief complaint: Patient states: I fell about a week ago and i hurt my ribs. It hurts kd3 to breath and it hurts to lay down. I think i just fell at a weird angle. I injured myself in the same place a long time ago. I would just like an X-ray. Coronavirus screen: Vaccine status: Patient reports being unvaccinated. Ebola Screen: No symptoms or risks identified at this time. Initial Sepsis Screen: Does the patient meet any 2 criteria? No. Patient's initial sepsis screen is negative. Does the patient have a suspected source of infection? No. Patient's initial sepsis screen is negative. Risk Assessment: Do you want to hurt yourself or someone else? Patient reports no desire to harm self or others. Onset of symptoms was January 05, 2022. 22:16 Method Of Arrival: Ambulatory kd3 22:16 Acuity: TATO 4 kd3 Triage Assessment: 22:19 General: Appears in no apparent distress. Behavior is calm, cooperative. Pain: kd3 Complains of pain in right ribs. Neuro: Level of Consciousness is awake, alert, obeys commands, Oriented to person, place, time, situation. Cardiovascular: Patient's skin is warm and dry. Respiratory: Airway is patent Trachea midline Respiratory effort is even, unlabored, Respiratory pattern is regular, symmetrical. Historical: - Allergies: 22:19 NKDA; kd3 - PMHx: 22:19 Bipolar disorder; Schizophrenia; kd3 - Immunization history:: Adult Immunizations up to date, Adult Immunizations not up to date. - Social history:: Smoking status: unknown. Screenin:20 Abuse screen: Denies threats or abuse. Denies injuries from another. Nutritional kd3 screening: No deficits noted. Tuberculosis screening: No symptoms or risk factors identified. Fall Risk None identified. Assessment: 23:17 General: Appears in no apparent distress. Behavior is calm, cooperative. Neuro: Level kd3 of Consciousness is awake, alert, obeys commands, Oriented to person, place, time, situation. Cardiovascular: Patient's skin is warm and dry. Respiratory: Airway is patent Trachea midline Respiratory effort is even, unlabored, Respiratory pattern is regular, symmetrical. 23:22 Reassessment: No changes from previously documented assessment. Patient and/or family kd3 updated on plan of care and expected duration. Pain level reassessed. Patient is alert, oriented x 3, equal unlabored respirations, skin warm/dry/pink. 23:22 General: waiting for xray results . kd3 Vital Signs: 22:16 BP 135 / 78; Pulse 65; Resp 16; Temp 98.1; Pulse Ox 100% on R/A; Weight 67.13 kg; kd3 Height 5 ft. 5 in. (165.10 cm); Pain 6/10; 22:16 Body Mass Index 24.63 (67.13 kg, 165.10 cm) kd3 ED Course: 22:06 Patient arrived in ED. bp1 22:10 Jevon Swift MD is Attending Physician. sp3 22:16 Gracia Cordero, RN is Primary Nurse. kd3 22:19 Triage completed. kd3 22:19 Arm band placed on right wrist. kd3 22:20 Patient has correct armband on for positive identification. kd3 22:20 No provider procedures requiring assistance completed. kd3 22:55 CXR XRAY In Process Unspecified. EDMS 22:56 Ribs Right XRAY In Process Unspecified. EDMS 23:32 Patient did not have IV access during this emergency room visit. kd3 Administered Medications: No medications were administered Medication: 23:17 VIS not applicable for this client. kd3 Outcome: 23:17 Condition: stable kd3 23:24 Discharge ordered by . sp3 23:32 Discharged to home ambulatory. kd3 23:32 Discharge instructions given to patient, Instructed on discharge instructions, Demonstrated understanding of instructions, follow-up care. 23:32 Patient left the ED. kd3 Signatures: Dispatcher [employer] EDMS Mookie Dionne bp1 Jevon Swift MD MD sp3 Gracia Cordero, RN RN kd3
--- NOTE | 2022-01-05 23:25 | EDPHYS ---
Physician Documentation [facility] Name: Luis Fernando Smith Age: 21 yrs Sex: Male : 2000 Arrival Date: 01/05/2022 Time: 22:06 Bed 20 Private MD: ED Physician Jevon Swift HPI: 01/05 23:21 This 21 yrs old Male presents to ER via Ambulatory with complaints of Rib pain.sp3 23:21 81-year-old male with history of bipolar disease and schizophrenia presents to the ED sp3 for right-sided chest pain secondary to a fall several days ago. He denies any difficulty breathing but has pain on his ribs. He states he "feels a broken piece" he denies any secondary injuries including headache neck pain, back pain, abdominal pain, nausea, vomiting, diarrhea, extremity pain, or any other symptoms on ROS at this time. Fall was ground-level and mechanical.. Historical: - Allergies: 22:19 NKDA; kd3 - PMHx: 22:19 Bipolar disorder; Schizophrenia; kd3 - Immunization history:: Adult Immunizations up to date, Adult Immunizations not up to date. - Social history:: Smoking status: unknown. ROS: 23:23 Constitutional: Negative for fever, chills, and weight loss, Eyes: Negative for injury, sp3 pain, redness, and discharge, ENT: Negative for injury, pain, and discharge, Neck: Negative for injury, pain, and swelling, Cardiovascular: Negative for chest pain, palpitations, and edema, Abdomen/GI: Negative for abdominal pain, nausea, vomiting, diarrhea, and constipation, Back: Negative for injury and pain, MS/Extremity: Negative for injury and deformity, Skin: Negative for injury, rash, and discoloration, Neuro: Negative for headache, weakness, numbness, tingling, and seizure. 23:23 All other systems are negative. Exam: 23:23 Constitutional: This is a well developed, well nourished patient who is awake, alert, sp3 and in no acute distress. Head/Face: Normocephalic, atraumatic. Eyes: Pupils equal round and reactive to light, extra-ocular motions intact. Lids and lashes normal. Conjunctiva and sclera are non-icteric and not injected. Cornea within normal limits. Periorbital areas with no swelling, redness, or edema. Neck: Trachea midline, no thyromegaly or masses palpated, and no cervical lymphadenopathy. Supple, full range of motion without nuchal rigidity, or vertebral point tenderness. No Meningismus. Cardiovascular: Regular rate and rhythm with a normal S1 and S2. No gallops, murmurs, or rubs. Normal PMI, no JVD. No pulse deficits. Respiratory: Lungs have equal breath sounds bilaterally, clear to auscultation and percussion. No rales, rhonchi or wheezes noted. No increased work of breathing, no retractions or nasal flaring. Abdomen/GI: Soft, non-tender, with normal bowel sounds. No distension or tympany. No guarding or rebound. No evidence of tenderness throughout. Skin: Warm, dry with normal turgor. Normal color with no rashes, no lesions, and no evidence of cellulitis. MS/ Extremity: Pulses equal, no cyanosis. Neurovascular intact. Full, normal range of motion. Neuro: Awake and alert, GCS 15, oriented to person, place, time, and situation. Cranial nerves II-XII grossly intact. Motor strength 5/5 in all extremities. Sensory grossly intact. Cerebellar exam normal. Normal gait. 23:23 Chest/axilla: Patient has mild pain on palpation to the right lateral ribs.. Vital Signs: 22:16 BP 135 / 78; Pulse 65; Resp 16; Temp 98.1; Pulse Ox 100% on R/A; Weight 67.13 kg; kd3 Height 5 ft. 5 in. (165.10 cm); Pain 6/10; 22:16 Body Mass Index 24.63 (67.13 kg, 165.10 cm) kd3 MDM: 22:15 Patient medically screened. sp3 23:23 Data reviewed: vital signs, nurses notes, radiologic studies. ED course: Chest x-ray sp3 and rib series on the right side demonstrate no acute fracture or abnormality. There is no pneumothorax. We will discharge patient home on p.o. OTC meds as needed.. 01/05 22:16 Order name: CXR XRAY sp3 01/05 22:16 Order name: Ribs Right XRAY sp3 Administered Medications: No medications were administered Disposition Summary: 01/05/22 23:24 Discharge Ordered Location: Home sp3 Condition: Stable sp3 Diagnosis - Rib Contusion, chest wall contusion sp3 Followup: sp3 - With: Private Physician - When: Upon discharge from the Emergency Department - Reason: Recheck today's complaints Discharge Instructions: - Discharge Summary Sheet sp3 - Blunt Chest Trauma sp3 Forms: - Medication Reconciliation Form sp3 - Thank You Letter sp3 - Antibiotic Education sp3 - Prescription Opioid Use sp3 Signatures: Dispatcher [employer] EDJevon Kaur MD MD sp3 Gracia Cordero RN RN kd3
[2022-01-06 00:30] VITALS: BP 135/78; TEMP 98.1; O2SAT 100
--- NOTE | 2022-01-06 10:26 | RAD REPORT ---
EXAM DESCRIPTION: Ribs Right - 01/05/2022 10:54 pm CLINICAL HISTORY: 1 years Male, TRAUMA COMPARISON: Chest radiograph dated 01/05/2022 IMPRESSION: No focal consolidation. No pleural effusion. No pneumothorax. Cardiomediastinal silhouette is within normal limits. No displaced right rib fracture. Electronically signed by: Willam aHll DO 01/05/2022 11:21 PM JACKHAMMER SPLITTER OPERATOR Due to temporary technical issues with the PACS/Fluency reporting system, reports are being signed by the in house radiologists without review as a courtesy to insure prompt reporting. The interpreting radiologist is fully responsible for the content of the report.
--- NOTE | 2022-01-06 10:27 | RAD REPORT ---
EXAM DESCRIPTION: RAD - Chest Single View - 01/05/2022 10:54 pm CLINICAL HISTORY: 1 years Male, TRAUMA COMPARISON: Chest radiograph dated 01/05/2022 IMPRESSION: No focal consolidation. No pleural effusion. No pneumothorax. Cardiomediastinal silhouette is within normal limits. No displaced right rib fracture. Electronically signed by: Willam Hall DO 01/05/2022 11:21 PM PHOTO TECHNOLOGIST Due to temporary technical issues with the PACS/Fluency reporting system, reports are being signed by the in house radiologists without review as a courtesy to insure prompt reporting. The interpreting radiologist is fully responsible for the content of the report.
== END 2022-01-05 23:32 | disposition home or self-care (01) ==
LOC: ER 22:00
DX: S20.211A Contusion of right front wall of thorax, initial encounter (principal); F20.9 Schizophrenia, unspecified
CPT/HCPCS: 71045; 99283

== ENCOUNTER 2022-10-25 12:26 | Emergency (ER) | payer OTHER ==
--- OUTSIDE RECORDS SUMMARY | 2022-10-25 12:31 | XMS REPORT | Continuity of Care Document ---
:2000 Author Organization [facility] t Address [address] [place] [address] Care Team Providers Name Role Phone DARLEEN HOWARD Primary Care Physician Unavailable DR DARLEEN HOWARD Attending Clinician Unavailable [phone] Attending Clinician Unavailable [id number] Attending Clinician Unavailable Donald Lewis Attending Clinician Unavailable Arsen Bernard Attending Clinician Unavailable Sergio Shane Attending Clinician Unavailable Raphael Monge Attending Clinician Unavailable Noni Bai Attending Clinician Unavailable Diego Muñoz Attending Clinician Unavailable DR DARLEEN HOWARD Admitting Clinician Unavailable UNDEFINED Admitting Clinician Unavailable Payers Payer Name Policy Type Policy Number Effective Date Expiration Date [facility] [id number] CHOICE [facility] [id number] CHOICE - Problems Condition Condition Condition Status Onset Resolution Last Treating Co mments Source Name Details Category Date Date Treatment Clinician Date Fractured Fractured Problem Active 2013-032017-09-02 [facility] nasal nasal 2-08 15:05:38 l bones bones 00:00: [place] (disorder) (disorder) 00 Active 02/05/2014 Problem 09/02/2017 Data migrated from [facility] on 07/28/14. [facility] Gastroesop Gastroeso Problem Active 2017-09-02 [facility] hageal phageal 15:05:38 l reflux reflux [place] disease disease (disorder) (disorder) Active Problem 09/02/2017 Data migrated from [employer] on 07/28/14. [facility] Upper Upper Problem Resolve 2012-032017-09-02 2017-09-02 [facility] respirator respirator d 03-01 15:05:38 15:05:38 l y y 00:00: [place] infection infection 00 (disorder) (disorder) Resolved 12/30/2012 Problem 09/02/2017 Data migrated from [employer] on 09/15/14.<b r/>Data migrated from [employer] on 09/14/14. [facility] Group Backache Backache Problem Resolve 2017-09-02 2017-09-02 [facility] (finding) (finding) d 06-10 15:05:38 15:05:38 l Resolved 00:00: [place] 06/10/2012 00 Problem 09/02/2017 Data migrated from [employer] on 09/15/14.<b r/>Data migrated from [employer] on 09/14/14. Medical Group Acute Acute Problem Resolve 2011-032017-09-02 2017-09-02 [facility] upper upper d 03-09 15:05:38 15:05:38 l respirator respirator 00:00: He rmann y y 00 infection infection (disorder) (disorder) Resolved 01/08/2012 Problem 09/02/2017 Data migrated from [employer] [facility] on 09/15/14.<b r/>Data migrated from [employer] on 09/14/14. [facility] Group Allergies, Adverse Reactions, Alerts Allergy Allergy Status Severity Reaction(s) Onset Inactive Treating Comm ents Source Name Type Date Date Clinician No Known DA Active [facility] -[facility] No Known MA Active UNKNOWN [facility] [place] [facility] Social History Smoking Status Start Date Stop Date Source Social History 2017-05-28 12:39:50 [facility] Medications This patient has no known medications. Immunizations Ordered Immunization Filled Immunization Date Status Commen ts Source Name Name meningococcal 2012-10-28 Completed [facility] conjugate 05:00:00 [place] vaccine<sup>2</sup> diphtheria/pertussis, 2012-10-28 Completed [facility] orial acel/tetanus 05:00:00 [place] adult<sup>1</sup> influenza virus 2012-10-28 Completed [facility] vaccine, live, 05:00:00 [place] trivalent<sup>3</sup> meningococcal 2012-10-28 Completed [facility] conjugate 05:00:00 [place] vaccine<sup>2</sup> influenza virus 2012-10-28 Completed [facility] vaccine, live, 05:00:00 [place] trivalent<sup>3</sup> Hx influenza 2012-10-28 Completed [facility] vaccine-unspecified<s 05:00:00 Her hawkins up>4</sup> human papillomavirus 2012-10-28 Completed Vinay rial vaccine<sup>5</sup> 05:00:00 Miladys nn Hx influenza 2012-10-28 Completed [facility] vaccine-unspecified<s 05:00:00 Her hawkins up>4</sup> diphtheria/pertussis, 2012-10-28 Completed Mem orial acel/tetanus 05:00:00 [place] adult<sup>1</sup> meningococcal 2012-10-28 Completed [facility] conjugate 05:00:00 [place] vaccine<sup>2</sup> influenza virus 2012-10-28 Completed [facility] vaccine, live, 05:00:00 [place] trivalent<sup>3</sup> Hx influenza 2012-10-28 Completed [facility] vaccine-unspecified<s 05:00:00 Her hawkins up>4</sup> human papillomavirus 2012-10-28 Completed Vinay rial vaccine<sup>5</sup> 05:00:00 [place]ad[place] nn human papillomavirus 2012-10-28 Completed Vinay rial vaccine<sup>5</sup> 05:00:00 [place]ys nn diphtheria/pertussis, 2012-10-28 Completed Mem orial acel/tetanus 05:00:00 [place] adult<sup>1</sup> meningococcal 2012-10-28 Completed [facility] conjugate 05:00:00 [place] vaccine<sup>2</sup> influenza virus 2012-10-28 Completed [facility] vaccine, live, 05:00:00 [place] trivalent<sup>3</sup> Hx influenza 2012-10-28 Completed [facility] vaccine-unspecified<s 05:00:00 Her hawkins up>4</sup> human papillomavirus 2012-10-28 Completed Vinay rial vaccine<sup>5</sup> 05:00:00 [place] nn diphtheria/pertussis, 2012-10-28 Completed Mem orial acel/tetanus 05:00:00 [place] adult<sup>1</sup> meningococcal 2012-10-28 Completed [facility] conjugate 05:00:00 [place] vaccine<sup>2</sup> influenza virus 2012-10-28 Completed [facility] vaccine, live, 05:00:00 [place] trivalent<sup>3</sup> Hx influenza 2012-10-28 Completed [facility] vaccine-unspecified<s 05:00:00 Her hawkins up>4</sup> human papillomavirus 2012-10-28 Completed Vinay rial vaccine<sup>5</sup> 05:00:00 [place] nn diphtheria/pertussis, 2012-10-28 Completed Mem orial acel/tetanus 05:00:00 [place] adult<sup>1</sup> meningococcal 2012-10-28 Completed [facility] conjugate 05:00:00 [place] vaccine<sup>2</sup> influenza virus 2012-10-28 Completed [facility] vaccine, live, 05:00:00 [place] trivalent<sup>3</sup> Hx influenza 2012-10-28 Completed [facility] vaccine-unspecified<s 05:00:00 Her hawkins up>4</sup> human papillomavirus 2012-10-28 Completed Vinay rial vaccine<sup>5</sup> 05:00:00 [place] nn diphtheria/pertussis, 2012-10-28 Completed Mem orial acel/tetanus 05:00:00 [place] adult<sup>1</sup> meningococcal 2012-10-28 Completed [facility] conjugate 05:00:00 [place] vaccine<sup>2</sup> influenza virus 2012-10-28 Completed [facility] vaccine, live, 05:00:00 [place] trivalent<sup>3</sup> Hx influenza 2012-10-28 Completed [facility] vaccine-unspecified<s 05:00:00 Her hawkins up>4</sup> human papillomavirus 2012-10-28 Completed Vinay rial vaccine<sup>5</sup> 05:00:00 Mil[place] nn diphtheria/pertussis, 2012-10-28 Completed Mem orial acel/tetanus 05:00:00 [place] adult<sup>1</sup> meningococcal 2012-10-28 Completed [facility] conjugate 05:00:00 [place] vaccine<sup>2</sup> influenza virus 2012-10-28 Completed [facility] vaccine, live, 05:00:00 [place] trivalent<sup>3</sup> Hx influenza 2012-10-28 Completed [facility] vaccine-unspecified<s 05:00:00 Her hawkins up>4</sup> human papillomavirus 2012-10-28 Completed Vinay rial vaccine<sup>5</sup> 05:00:00 [place] nn diphtheria/pertussis, 2012-10-28 Completed Mem orial acel/tetanus 05:00:00 [place] adult<sup>1</sup> meningococcal 2012-10-28 Completed [facility] conjugate 05:00:00 [place] vaccine<sup>2</sup> influenza virus 2012-10-28 Completed [facility] vaccine, live, 05:00:00 [place] trivalent<sup>3</sup> Hx influenza 2012-10-28 Completed [facility] vaccine-unspecified<s 05:00:00 Her hawkins up>4</sup> human papillomavirus 2012-10-28 Completed Vinay rial vaccine<sup>5</sup> 05:00:00 [place] nn diphtheria/pertussis, 2012-10-28 Completed Mem orial acel/tetanus 05:00:00 [place] adult<sup>1</sup> Hx pneumococcal 2011-01-26 Completed [facility] vaccine<sup>6</sup> 18:29:21 [...] measles/mumps/rubella 2003-01-15 Completed Mem orial virus 18:25:17 [place] vaccine<sup>18</sup> Hx diphth/pertussis, 2003-01-15 Completed Vinay rial acellular/tetanus<sup 18:25:17 Her hawkins >20</sup> Hx poliovirus 2003-01-15 Completed [facility] vaccine-unspecified<s 18:25:17 Her hawkins up>14</sup> measles/mumps/rubella 2003-01-15 Completed Mem orial virus 18:25:17 [place] vaccine<sup>18</sup> Hx diphth/pertussis, 2003-01-15 Completed Vinay rial acellular/tetanus<sup 18:25:17 Her hawkins >20</sup> Hx poliovirus 2003-01-15 Completed [facility] vaccine-unspecified<s 18:25:17 Her hawkins up>14</sup> Hx poliovirus 2003-01-15 Completed [facility] vaccine-unspecified<s 18:25:17 Her hawkins up>14</sup> measles/mumps/rubella 2003-01-15 Completed Mem orial virus 18:25:17 [place] vaccine<sup>18</sup> Hx diphth/pertussis, 2003-01-15 Completed Vinay rial acellular/tetanus<sup 18:25:17 Her hawkins >20</sup> measles/mumps/rubella 2003-01-15 Completed Mem orial virus 18:25:17 [place] vaccine<sup>18</sup> Hx diphth/pertussis, 2003-01-15 Completed Vinay rial acellular/tetanus<sup 18:25:17 Her hawkins >20</sup> Hx poliovirus 2003-01-15 Completed [facility] vaccine-unspecified<s 18:25:17 Her hawkins up>14</sup> measles/mumps/rubella 2003-01-15 Completed Mem orial virus 18:25:17 [place] vaccine<sup>18</sup> Hx diphth/pertussis, 2003-01-15 Completed Vinay rial acellular/tetanus<sup 18:25:17 Her hawkins >20</sup> Hx poliovirus 2003-01-15 Completed [facility] vaccine-unspecified<s 18:25:17 Her hawkins up>14</sup> measles/mumps/rubella 2003-01-15 Completed Mem orial virus 18:25:17 [place] vaccine<sup>18</sup> Hx diphth/pertussis, 2003-01-15 Completed Vinay rial acellular/tetanus<sup 18:25:17 Her hawkins >20</sup> Hx poliovirus 2003-01-15 Completed [facility] vaccine-unspecified<s 18:25:17 Her hawkins up>14</sup> measles/mumps/rubella 2003-01-15 Completed Mem orial virus 18:25:17 [place] vaccine<sup>18</sup> Hx diphth/pertussis, 2003-01-15 Completed Vinay rial acellular/tetanus<sup 18:25:17 Her hawkins >20</sup> Hx poliovirus 2003-01-15 Completed [facility] vaccine-unspecified<s 18:25:17 Her hawkins up>14</sup> measles/mumps/rubella 2003-01-15 Completed Mem orial virus 18:25:17 [place] vaccine<sup>18</sup> Hx diphth/pertussis, 2003-01-15 Completed Vinay rial acellular/tetanus<sup 18:25:17 Her hawkins >20</sup> Hx poliovirus 2003-01-15 Completed [facility] vaccine-unspecified<s 18:25:17 Her hawkins up>14</sup> measles/mumps/rubella 2003-01-15 Completed Mem orial virus 18:25:17 [place] vaccine<sup>18</sup> Hx diphth/pertussis, 2003-01-15 Completed Vinay rial [...] [facility] vaccine-unspecified<s 18:25:17 Her hawkins up>15</sup> Hx poliovirus 2000-04-13 Completed [facility] vaccine-unspecified<s 18:25:17 Her hawkins up>15</sup> Hx hepatitis B 2000-04-13 Completed [facility] vaccine<sup>25</sup> 18:25:17 Herm evelyne Hx haemophilus b 2000-04-13 Completed [facility] vaccine<sup>28</sup> 18:25:17 Herm evelyne Hx diphth/pertussis, 2000-04-13 Completed Vinay rial acellular/tetanus<sup 18:25:17 Her hawkins >21</sup> Hx hepatitis B 2000-04-13 Completed [facility] vaccine<sup>25</sup> [...] 2000-01-14 Completed [facility] vaccine<sup>11</sup> 18:25:17 Herm evelyne varicella virus 2000-01-14 Completed [facility] vaccine<sup>11</sup> 18:25:17 Herm evelyne measles/mumps/rubella 2000-01-14 Completed Mem orial virus 18:25:17 [place] vaccine<sup>19</sup> Hx pneumococcal 2000-01-14 Completed [facility] vaccine<sup>7</sup> 18:25:17 Miladys nn measles/mumps/rubella 2000-01-14 Completed Mem orial virus 18:25:17 [place] vaccine<sup>19</sup> Hx pneumococcal 2000-01-14 Completed [facility] vaccine<sup>7</sup> 18:25:17 Mil[place] nn varicella virus 2000-01-14 Completed [facility] vaccine<sup>11</sup> 18:25:17 Herm evelyne measles/mumps/rubella 2000-01-14 Completed Mem orial virus 18:25:17 [place] vaccine<sup>19</sup> Hx pneumococcal 2000-01-14 Completed [facility] vaccine<sup>7</sup> [...] Miladys nn Hx pneumococcal 1999 Completed [facility] vaccine<sup>9</sup> 17:25:17 [...] rial acellular/tetanus<sup 17:25:17 Her hawkins >22</sup> Hx haemophilus b 1999 Completed [facility] vaccine<sup>29</sup> [...] Comments Source Respitory Rate 2017-05-28 12:34:00 Nader Brannon Height 2017-05-28 12:34:00 163.83 cm [facility] [place] Weight 2017-05-28 12:34:00 [facility] [place] BMI Calculated 2017-05-28 12:34:00 Nader al [place] Systolic (mm Hg) 2017-05-28 12:34:00 Vinay Weir Diastolic (mm Hg) 2017-05-28 12:34:00 Mem faraz Weir Heart Rate 2017-05-28 12:34:00 [facility] [place] Procedures This patient has no known procedures. Encounters Start End Encounter Admission Attending Care Care Encounter Source Date/Time Date/Time Type Type Clinicians Facility Department ID 2022-02-10 Inpatient TEXANA TEXANA [id number] [place] 10:01:09 [id number] [place] 2022-01-07 Outpatient DARLEEN HOWARD ELCAMPO ELCAMPO [id number] El 16:21:38 [id number] [facility] [id number] [facility] 2022-01-06 Inpatient TEXANA TEXANA [id number] [place] 15:24:26 [id number] [place] 2022-01-01 Outpatient ELCAMPO ELCAMPO [id number] El 16:22:26 [id number] [place] [facility] 2022-01-01 Inpatient TEXANA TEXANA [id number] [place] 09:02:34 [id number] [place] 2021-12-31 Inpatient TEXANA TEXANA [id number] [place] 09:58:20 [id number] [place] 2021-10-25 Outpatient ELCAMPO ELCAMPO [id number] [place] 10:24:07 [id number] [place] [facility] 2022-08-12 2022-08-12 Emergency EM [facility] ER [id number] [facility] 13:01:00 14:20:00 trent Donald 10 Cor pus [facility] 2022-08-02 2022-08-02 Emergency EM Marco Antonio, [facility] ER [id number] [facility] 17:35:00 19:15:00 Arsen 01 [facility] 2022-07-22 2022-07-22 Emergency EM Acosta, [facility] ER [id number] [facility] 13:22:00 23:04:00 Sergio 69 [facility] 2022-07-21 2022-07-22 Emergency EM Saleem, [facility] ER [id number] [facility] 19:06:00 07:56:00 Lim 60 Corpu s [facility] 2022-07-19 2022-07-19 Emergency EL Meagan [facility] ER [id number] [facility] 11:29:00 13:32:00 BarretoRosio tripathi [facility] 2022-07-18 2022-07-19 Emergency EM Diego Muñoz [facility] ER [id number] [facility] 21:21:00 11:36:00 64 [facility] 2022-01-08 2022-01-08 Outpatient M BACCAM, DARLEEN ELCAMPO [facility] [id number] [place] 16:23:00 16:23:00 [id number] [place] [id number] [facility] 2022-01-01 2022-01-01 Outpatient M BACCAM, DARLEEN ELCAMPO PPL [facility] [id number] El 16:23:00 21:20:00 [id number] [place] [id number] [facility] 2021-10-27 2021-10-27 Outpatient M BACCAM, DARLEEN ELCAMPO PPL [facility] [id number] El 10:24:00 10:24:00 [id number] [place] [id number] [facility] 2017-05-27 2017-05-28 Outpatient [facility]Flavo [facility] 4 [id number] [facility] 19:45:00 04:59:59 r [place] 2017-05-27 2017-05-28 Outpatient nullFlavo [facility] [id number] [facility] 19:45:00 04:59:59 r Medicine [place] 02 [place] 2017-05-27 2017-05-27 Outpatient [facility] [id number] 14:45:00 23:59:59 02 2017-05-27 2017-05-27 Outpatient [facility] [id number] Memoria 14:45:00 14:45:00 02 nereida Weir 2016-05-08 2016-05-[address] [id number] 13:30:00 13:30:00 01 [place] 2016-05-08 2016-05-08 Outpatient [facility] [id number] [facility] 13:30:00 13:30:00 01 nereida Weir Results Test Description Test Time Test Comments Results Result Comments Source COMPREHENSIVE METABOLIC PANEL 2022-08-12 13:49:00 Test Item Value Reference Range Interpretation Comme nts SODIUM (test code = NA) 142 MMOL/L 133-145 N POTASSIUM (test code = K) 4.3 MMOL/L 3.6-5.2 N CHLORIDE (test code = CL) 103 MMOL/L 100-108 N CARBON DIOXIDE (test code = 30 MMOL/L 22-32 N CO2) GLUCOSE (test code = GLU) 89 MG/DL 65-99 N Re sults of this assay method may be falsely depr essed orelevated if patient is t aking sulfasalazine. BLOOD UREA NITROGEN (test code 11 MG/DL 6-20 N = BUN) GLOMERULAR FILTRATION RATE 117 77-179 N T he Glomerular Filtration Rate (test code = GFR) is a calcu lated parameterbased on serum Creati nine, patient age and sex. GFR va luesless than 60 mL/min/1.73 squ are meters are indicative ofCh ronic Kidney Disease. Values less than 15 mL/min/1.73squa re meters indicate Kidney failure. The calculation for GFR is based on the CKD-EPI (20 21) calculation. This formulais race indifferent and is the annita mmended formula for GFRby the [facility] for Adults.The GFR will not calcul ate if the sex is unknown or if t hepatient's age is <18 years. CREATININE (test code = CREAT) 0.94 MG/DL 0.60-1.00 N TOTAL PROTEIN (test code = 7.3 G/DL 6.4-8.2 N PROT) ALBUMIN (test code = ALB) 4.3 G/DL 3.4-5.0 N GLOBULIN (test code = GLOB) 3.0 G/DL 1.5-3.8 N ALBUMIN/GLOBULIN RATIO (test 1.4 1.1-2.2 N code = A/G) CALCIUM (test code = CA) 9.3 MG/DL 8.7-10.5 N BILIRUBIN TOTAL (test code = 0.6 MG/DL 0.0-1.0 N BILT) SGOT/AST (test code = AST) 19 Units/L 15-37 N R esults of this assay method may be falsely depr essed orelevated if patient is t aking sulfasalazine. SGPT/ALT (test code = ALT) 31 Units/L 30-65 N R esults of this assay method may be falsely depr essed orelevated if patient is t aking sulfasalazine. ALKALINE PHOSPHATASE TOTAL 93 Units/L 50-136 N (test code = ALKP) [id number] 13:49:00 Test Item Value Reference Range Interpretation Comments ACETAMINOPHEN (test < 1 MCG/ML 10-30 L Acetamin ophen is code = ACET) possibly toxic at levels of: 1. m ore than 150 MCG/ML 4 hours post catie stion. 2. more than 50 MCG/ML 12 hours post ingestion. [id number] 13:49:00 Test Item Value Reference Range Interpretation Comments SALICYLATE (test code = < 3 MG/DL 0-20 N Refe rence Range: CODY) Analgesic...... ...... ...... < 10 mg/ dl Therapeutic.... ...... ...... 15-20 mg /dl Mild Toxicity....... ...... . > 30 mg/dl Se destiney Toxicity....... ..... > 60 mg/dl [id number] 13:49:00 Test Item Value Reference Range Interpretation Comments ALCOHOL (test code = < 3 MG/DL 0-10 N 0 - 10 : Should be ALC) interpreted as NEGATIVE. 11 - 50: None t o mild euphoria. 51 - 100: Mild influence on vi sarah and dark adaptation . > 80: Legal intoxicat ion; Depression of C NS; Increasing degr ee of poisoning. > 40 0: Fatalities repo rted. Results are for medical purposes only a nd not forlegal or emp loyment evaluative purp oses. CBC W/AUTO [id number] 13:32:00 Test Item Value Reference Range Interpretation Comments WHITE BLOOD CELL (test code = 7.85 x10 3/uL 4.80-10.80 N WBC) RED BLOOD CELL (test code = 5.00 x10 6/uL 4.7-6.1 N RBC) HEMOGLOBIN (test code = HGB) 15.7 G/DL 14.0-17.0 N HEMATOCRIT (test code = HCT) 45.7 % 42-52 N MEAN CELL VOLUME (test code = 91.4 FL 80-94 N MCV) MEAN CELL HGB (test code = MCH) 31.4 PG 27-31 H MEAN CELL HGB CONCENTRATION 34.4 G/DL 33-37 N (test code = MCHC) RED CELL DISTRIBUTION WIDTH 12.6 % 11.5-14.5 N (test code = RDW) PLATELET COUNT (test code = 288 x10 3/uL 150-450 N PLT) MEAN PLATELET VOLUME (test code 10.3 FL 7.4-10.4 N = MPV) NEUTROPHIL % (test code = NT%) 68.1 % 42-86 N LYMPHOCYTE % (test code = LY%) 23.6 % 24-44 L MONOCYTE % (test code = MO%) 7.1 % 0.0-4.0 H EOSINOPHIL % (test code = EO%) 0.8 % 0.0-2.7 N BASOPHIL % (test code = BA%) 0.4 % 0.0-0.5 N NEUTROPHIL # (test code = NT#) 5.35 x10 3/uL 1.8-7.7 N LYMPHOCYTE # (test code = LY#) 1.85 x10 3/uL 1.0-4.8 N MONOCYTE # (test code = MO#) 0.56 x10 3/uL 0.0-0.8 N EOSINOPHIL # (test code = EO#) 0.06 x10 3/uL 0.0-0.5 N BASOPHIL # (test code = BA#) 0.03 x10 3/uL 0.0-0.2 N - XR CHEST 1 [id number] 18:51:00 [facility] : 2000 Sex: M Patient Name: VIVIENNE CAMACHO Unit No: [id number] EXAMS: CPT CODE: [id number] XR CHEST 1 V [id number] Reason: altered mental status EXAM: Chest one view. Location: H24 HISTORY: altered mental status COMPARISON: 07/19/2022 FINDINGS: The lungs are free of focal airspace consolidations.. There are no pleural effusions or pneumothorax. The aorta, pulmonary vasculature and mediastinum are within normal limits. Cardiac silhouette is normal in size and contour. Visualized skeletal structures are unremarkable. IMPRESSION: No active disease in the chest. at 1851 Reported and signed by: Jere Silvestre MD CC: Sergio Shane MD Technologist: KEISHA Rhodes Trscrpt Dt/ (1850)MaribellAL7 Orig Print D/T: S: 08/02/2022 (1853) [place] FSED NAME: VIVIENNE CAMACHO [id number] [facility] PHYS: [place] [id number] : 2000 AGE: 22 SEX: M LOC: ANNIE PHONE #: [phone] EXAM DATE: 08/02/2022 STATUS: PRE ER FAX #: RAD NO: DC Dt: PAGE 1 Signed ReportBASIC METABOLIC [id number] 18:31:00 Test Item Value Reference Range Interpretation Comments SODIUM (test code = 143 MMOL/L 133-145 N NA) POTASSIUM (test code 3.8 MMOL/L 3.6-5.2 N = K) CHLORIDE (test code 104 MMOL/L 100-108 N = CL) CARBON DIOXIDE (test 26 MMOL/L 22-32 N code = CO2) GLUCOSE (test code = 89 MG/DL 65-99 N Results of this assay GLU) method may be f alsely depressed orele vated if patient is taki ng sulfasalazine. BLOOD UREA NITROGEN 15 MG/DL 6-20 N (test code = BUN) GLOMERULAR 124 77-179 N The Glomerular FILTRATION RATE Filtration R ate is a (test code = GFR) calculated parameterbased on serum Creatinine, pat ient age and sex. GFR va luesless than 60 mL/min/ 1.73 square meters a re indicative ofCh ronic Kidney Disease. Values less than 15 mL/min/1.73squa re meters indicate Kidney failure. The calculation for GFR is based on the CK D-EPI (2020) calculat ion. This formulais race indifferent and is the recommended for bello for GFRby the [facility] n[facility] Kidney Foundati on for Adults.The GFR will not calculate if th e sex is unknown or if thepatient's ag e is <18 years. CREATININE (test 0.87 MG/DL 0.60-1.00 N code = CREAT) CALCIUM (test code = 9.2 MG/DL 8.7-10.5 N CA) HEPATIC FUNCTION [id number] 18:31:00 Test Item Value Reference Range Interpretation Comments TOTAL PROTEIN (test 7.5 G/DL 6.4-8.2 N code = PROT) ALBUMIN (test code = 4.4 G/DL 3.4-5.0 N ALB) GLOBULIN (test code = 3.1 G/DL 1.5-3.8 N GLOB) ALBUMIN/GLOBULIN RATIO 1.4 1.1-2.2 N (test code = A/G) BILIRUBIN TOTAL (test 0.2 MG/DL 0.0-1.0 N code = BILT) BILIRUBIN DIRECT (test 0.1 MG/DL 0.0-0.3 N code = BILD) SGOT/AST (test code = 58 Units/L 15-37 H Result s of this AST) assay method ma y be falsely depress ed orelevated if patient is taki ng sulfasalazine. SGPT/ALT (test code = 138 Units/L 30-65 H Result s of this ALT) assay method ma y be falsely depress ed orelevated if patient is taki ng sulfasalazine. ALKALINE PHOSPHATASE 135 Units/L 50-136 N TOTAL (test code = ALKP) BILIRUBIN INDIRECT 0.1 MG/DL 0.0-0.7 N (test code = BILIND) [id number] 18:31:00 Test Item Value Reference Range Interpretation Comments CK (test code = CKT) 226 Units/L 39-308 N TROP-I HIGH [id number] 18:31:00 Test Item Value Reference Range Interpretation Comments TROP-I HIGH SENSITIVITY < 4 ng/L < 76 - T he use of serial (test code = TROPIHS) sampli ng and testing protocol is a recommended pra ctice.- An elevated tro ponin level alone is often not sufficient for diagnosis of myocardial infarction.Resu lts of this assay meth od may be falsely depr essed orelevated if p atient is taking high doses of Biotin. [id number] 18:31:00 Test Item Value Reference Range Interpretation Comments ACETAMINOPHEN (test < 1 MCG/ML 10-30 L Acetamin ophen is code = ACET) possibly toxic at levels of: 1. m ore than 150 MCG/ML 4 hours post catie stion. 2. more than 50 MCG/ML 12 hours post ingestion. [id number] 18:31:00 Test Item Value Reference Range Interpretation Comments SALICYLATE (test code = < 3 MG/DL 0-20 N Refe rence Range: CODY) Analgesic...... ...... ...... < 10 mg/ dl Therapeutic.... ...... ...... 15-20 mg /dl Mild Toxicity....... ...... . > 30 mg/dl Se destiney Toxicity....... ..... > 60 mg/dl [id number] 18:31:00 Test Item Value Reference Range Interpretation Comments ALCOHOL (test code = 113 MG/DL 0-10 H 0 - 1 0: Should be ALC) interpreted as NEGATIVE. 11 - 50: None t o mild euphoria. 51 - 100: Mild influence on vi sarah and dark adaptation . > 80: Legal intoxicat ion; Depression of C NS; Increasing degr ee of poisoning. > 40 0: Fatalities repo rted. Results are for medical purposes only a nd not forlegal or emp loyment evaluative purp oses. DRUG OF ABUSE SCREEN [id number] 18:26:00 Test Item Value Reference Interpretation Comments Range UR COCAINE (test NEGATIVE NEGATIVE code = COCAU) UR MDMA (test code = NEGATIVE NEGATIVE MDMAQLU) UR CANNABINOIDS NEGATIVE NEGATIVE (test code = CANU) UR AMPHETAMINE (test NEGATIVE NEGATIVE code = AMPHU) UR BARBITURATE QUAL NEGATIVE NEGATIVE (test code = BARBQLU) UR BENZODIAZEPINE NEGATIVE NEGATIVE (test code = BENZU) UR OPIATES QUAL NEGATIVE NEGATIVE (test code = OPIAQLU) UR PHENCYCLIDINE NEGATIVE NEGATIVE Urine Drug Abuse Screen (PCP) (test code = provides preliminary PHENCU) results thatmay be confirmed by norah avila methods (i.e., GC/MS) at [facility]. Results of scre en may not be usedin crimi nal justice, job performance or professionalcre dential review, or infa nt custody issues. Negativ e Bath Level ng/ml ------- ----- Cocaine 3 00 Methamphetamine (Ecstacy) 500 Cannabinoi ds (THC) 50 Amphetamine 100 0 Barbiturates 20 0 Benzodiazepines 200 Opiates 300 Phe ncyclidine (PCP) 25 UA RFLX MICROSCOPIC [id number] 18:24:00 Test Item Value Reference Range Interpretation Comments UA COLOR (test code = COLU) COLORLESS YELLOW A UA APPEARANCE (test code = CLEAR CLEAR APPU) UA GLUCOSE DIPSTICK (test NEGATIVE mg/dL NEGATIVE code = DGLUU) UA BILIRUBIN DIPSTICK (test NEGATIVE NEGATIVE code = BILU) UA KETONE DIPSTICK (test NEGATIVE mg/dL NEGATIVE code = KETU) UA SPECIFIC GRAVITY (test 1.010 1.001-1.035 N code = SGU) UA BLOOD DIPSTICK (test code NEGATIVE NEGATIVE = CORINNA) UA PH DIPSTICK (test code = 6.0 5.5-7.0 N MYLES) UA PROTEIN DIPSTICK (test NEGATIVE mg/dL NEGATIVE code = PROU) UA UROBILINOGEN DIPSTICK NORMAL mg/dL NORMAL (test code = URO) UA NITRITE DIPSTICK (test NEGATIVE NEGATIVE code = YESSENIA) UA LEUKOCYTE ESTERASE NEGATIVE NEGATIVE DIPSTICK (test code = LEUU) UA COMMENT (test code = VOLUME 10-12 ML COMU) URINE SPECIMEN DESCRIPTION Clean Catch (test code = UASPEC) UA WBC (test code = WBCU) < 10 #/hpf <10 UA SQUAMOUS CELLS (test code 0 - 20 #/lpf <100 = SQU) UA CULTURE NEEDED? (test Criteria not met code = UACULT) Indication for culture: RiskForSepsis-no oth srcURINE SOURCE: Clean CatchCBC W/AUTO [id number] 18:23:00 Test Item Value Reference Range Interpretation Comments WHITE BLOOD CELL (test code = 9.76 x10 3/uL 4.80-10.80 N WBC) RED BLOOD CELL (test code = 4.74 x10 6/uL 4.7-6.1 N RBC) HEMOGLOBIN (test code = HGB) 14.8 G/DL 14.0-17.0 N HEMATOCRIT (test code = HCT) 43.2 % 42-52 N MEAN CELL VOLUME (test code = 91.1 FL 80-94 N MCV) MEAN CELL HGB (test code = MCH) 31.2 PG 27-31 H MEAN CELL HGB CONCENTRATION 34.3 G/DL 33-37 N (test code = MCHC) RED CELL DISTRIBUTION WIDTH 12.1 % 11.5-14.5 N (test code = RDW) PLATELET COUNT (test code = 221 x10 3/uL 150-450 N PLT) MEAN PLATELET VOLUME (test code 11.3 FL 7.4-10.4 H = MPV) NEUTROPHIL % (test code = NT%) 67.2 % 42-86 N LYMPHOCYTE % (test code = LY%) 24.1 % 24-44 N MONOCYTE % (test code = MO%) 7.6 % 0.0-4.0 H EOSINOPHIL % (test code = EO%) 0.6 % 0.0-2.7 N BASOPHIL % (test code = BA%) 0.5 % 0.0-0.5 N NEUTROPHIL # (test code = NT#) 6.56 x10 3/uL 1.8-7.7 N LYMPHOCYTE # (test code = LY#) 2.35 x10 3/uL 1.0-4.8 N MONOCYTE # (test code = MO#) 0.74 x10 3/uL 0.0-0.8 N EOSINOPHIL # (test code = EO#) 0.06 x10 3/uL 0.0-0.5 N BASOPHIL # (test code = BA#) 0.05 x10 3/uL 0.0-0.2 N UA RFLX [id number] 16:52:00 Test Item Value Reference Range Interpretation Comments UA COLOR (test code = COLU) Colorless YELLOW UA APPEARANCE (test code = CLEAR CLEAR APPU) UA GLUCOSE DIPSTICK (test NORMAL mg/dL NEGATIVE code = DGLUU) UA BILIRUBIN DIPSTICK (test NEGATIVE NEGATIVE code = BILU) UA KETONE DIPSTICK (test code NEGATIVE mg/dL NEGATIVE = KETU) UA SPECIFIC GRAVITY (test 1.009 1.001-1.035 N code = SGU) UA BLOOD DIPSTICK (test code NEGATIVE = CORINNA) UA PH DIPSTICK (test code = 6.5 5.5-7.0 N MYLES) UA PROTEIN DIPSTICK (test NEGATIVE mg/dL NEGATIVE code = PROU) UA UROBILINOGEN DIPSTICK NORMAL mg/dL NORMAL (test code = URO) UA NITRITE DIPSTICK (test NEGATIVE NEGATIVE code = YESSENIA) UA LEUKOCYTE ESTERASE NEGATIVE NEGATIVE DIPSTICK (test code = LEUU) UA COMMENT (test code = COMU) VOLUME 10-12 ML URINE SPECIMEN DESCRIPTION Clean Catch (test code = UASPEC) COMPREHENSIVE METABOLIC [id number] 16:29:00 Test Item Value Reference Range Interpretation Comments SODIUM (test code = 142 MMOL/L 133-145 N NA) POTASSIUM (test code 3.9 MMOL/L 3.6-5.2 N = K) CHLORIDE (test code 106 MMOL/L 100-108 N = CL) CARBON DIOXIDE (test 33 MMOL/L 22-32 H code = CO2) GLUCOSE (test code = 103 MG/DL 65-99 H Results of this assay GLU) method may be f alsely depressed orele vated if patient is taki ng sulfasalazine. BLOOD UREA NITROGEN 16 MG/DL 6-20 N (test code = BUN) GLOMERULAR 111 77-179 N The Glomerular FILTRATION RATE Filtration R ate is a (test code = GFR) calculated parameterbased on serum Creatinine, pat ient age and sex. GFR va luesless than 60 mL/min/ 1.73 square meters a re indicative ofCh ronic Kidney Disease. Values less than 15 mL/min/1.73squa re meters indicate Kidney failure. The calculation for GFR is based on the CK D-EPI (2020) calculat ion. This formulais race indifferent and is the recommended for bello for GFRby the Natio nal Kidney Foundati on for Adults.The GFR will not calculate if th e sex is unknown or if thepatient's ag e is <18 years. CREATININE (test 0.98 MG/DL 0.60-1.00 N code = CREAT) TOTAL PROTEIN (test 6.5 G/DL 6.4-8.2 N code = PROT) ALBUMIN (test code = 3.7 G/DL 3.4-5.0 N ALB) GLOBULIN (test code 2.8 G/DL 1.5-3.8 N = GLOB) ALBUMIN/GLOBULIN 1.3 1.1-2.2 N RATIO (test code = A/G) CALCIUM (test code = 8.8 MG/DL 8.7-10.5 N CA) BILIRUBIN TOTAL 0.2 MG/DL 0.0-1.0 N (test code = BILT) SGOT/AST (test code 12 Units/L 15-37 L Results of this assay = AST) method may be f alsely depressed orele vated if patient is taki ng sulfasalazine. SGPT/ALT (test code 21 Units/L 30-65 L Results of this assay = ALT) method may be f alsely depressed orele vated if patient is taki ng sulfasalazine. ALKALINE PHOSPHATASE 86 Units/L 50-136 N TOTAL (test code = ALKP) THYROID STIMULATING [id number] 16:29:00 Test Item Value Reference Range Interpretation Comments THYROID STIMULATING 0.62 0.42-5.47 N Micro-In ternational HORMONE (test code = TSH) Un its/LResults of this assay method ma y be falsely depress ed orelevated if p atient is taking high doses of Biotin. [id number] 16:29:00 Test Item Value Reference Range Interpretation Comments CK (test code = CKT) 59 Units/L 39-308 N [id number] 16:29:00 Test Item Value Reference Range Interpretation Comments ACETAMINOPHEN (test < 1 MCG/ML 10-30 L Acetamin ophen is code = ACET) possibly toxic at levels of: 1. m ore than 150 MCG/ML 4 hours post catie stion. 2. more than 50 MCG/ML 12 hours post ingestion. [id number] 16:29:00 Test Item Value Reference Range Interpretation Comments ALCOHOL (test code = < 3 MG/DL 0-10 N 0 - 10 : Should be ALC) interpreted as NEGATIVE. 11 - 50: None t o mild euphoria. 51 - 100: Mild influence on vi sarah and dark adaptation . > 80: Legal intoxicat ion; Depression of C NS; Increasing degr ee of poisoning. > 40 0: Fatalities repo rted. Results are for medical purposes only a nd not forlegal or emp loyment evaluative purp oses. CBC W/AUTO [id number] 16:09:00 Test Item Value Reference Range Interpretation Comments WHITE BLOOD CELL (test code = 7.29 x10 3/uL 4.80-10.80 N WBC) RED BLOOD CELL (test code = 4.52 x10 6/uL 4.7-6.1 L RBC) HEMOGLOBIN (test code = HGB) 13.9 G/DL 14.0-17.0 L HEMATOCRIT (test code = HCT) 41.0 % 42-52 L MEAN CELL VOLUME (test code = 90.7 FL 80-94 N MCV) MEAN CELL HGB (test code = MCH) 30.8 PG 27-31 N MEAN CELL HGB CONCENTRATION 33.9 G/DL 33-37 N (test code = MCHC) RED CELL DISTRIBUTION WIDTH 11.5 % 11.5-14.5 N (test code = RDW) PLATELET COUNT (test code = 198 x10 3/uL 150-450 N PLT) MEAN PLATELET VOLUME (test code 11.2 FL 7.4-10.4 H = MPV) NEUTROPHIL % (test code = NT%) 51.6 % 42-86 N IMMATURE GRANULOCYTE % (test 0.1 % 0.0-2.0 N code = IG%) LYMPHOCYTE % (test code = LY%) 34.4 % 24-44 N MONOCYTE % (test code = MO%) 10.2 % 0.0-4.0 H EOSINOPHIL % (test code = EO%) 2.6 % 0.0-2.7 N BASOPHIL % (test code = BA%) 1.1 % 0.0-0.5 H NUCLEATED RBC % (test code = 0.0 % 0.0-0.0 N NRBC%) NEUTROPHIL # (test code = NT#) 3.76 x10 3/uL 1.8-7.7 N IMMATURE GRANULOCYTE # (test 0.01 x10 3/uL 0.00-0.03 N code = IG#) LYMPHOCYTE # (test code = LY#) 2.51 x10 3/uL 1.0-4.8 N MONOCYTE # (test code = MO#) 0.74 x10 3/uL 0.0-0.8 N EOSINOPHIL # (test code = EO#) 0.19 x10 3/uL 0.0-0.5 N BASOPHIL # (test code = BA#) 0.08 x10 3/uL 0.0-0.2 N NUCLEATED RBC # (test code = 0.0 X10 3/uL 0.0-0.2 N NRBC#) UA RFLX [id number] 20:58:00 Test Item Value Reference Range Interpretation Comments UA COLOR (test code KATHRINE YELLOW = COLU) UA APPEARANCE (test HAZY CLEAR code = APPU) UA GLUCOSE DIPSTICK NEGATIVE mg/dL NEGATIVE (test code = DGLUU) UA BILIRUBIN 1+ NEGATIVE A Not able to rul e DIPSTICK (test code out fals e positive; = BILU) No confirmatory test. UA KETONE DIPSTICK 5 mg/dL NEGATIVE A (test code = KETU) UA SPECIFIC GRAVITY 1.025 1.001-1.035 N (test code = SGU) UA BLOOD DIPSTICK TRACE NEGATIVE A (test code = CORINNA) UA PH DIPSTICK (test 5.0 5.5-7.0 L code = MYLES) UA PROTEIN DIPSTICK 25 mg/dL NEGATIVE A (test code = PROU) UA UROBILINOGEN 4.0 mg/dL NORMAL A DIPSTICK (test code = URO) UA NITRITE DIPSTICK NEGATIVE NEGATIVE (test code = YESSENIA) UA LEUKOCYTE 25 NEGATIVE A ESTERASE DIPSTICK (test code = LEUU) UA COMMENT (test VOLUME 10-12 ML code = COMU) URINE SPECIMEN Clean Catch DESCRIPTION (test code = UASPEC) UA [id number] 20:58:00 Test Item Value Reference Range Interpretation Comments UA WBC (test code = WBCU) < 10 #/hpf <10 UA RBC (test code = RBCU) 2-5 #/hpf NONE SEEN A UA SQUAMOUS CELLS (test code 20 - 40 #/lpf <100 = SQU) UA CULTURE NEEDED? (test Criteria not met code = UACULT) UA BACTERIA (test code = 1+ #/hpf NONE SEEN BACU) UA CALCIUM OXALATE CRYSTALS PRESENT #/lpf (test code = CAOXU) UA MUCUS (test code = MUCU) 3+ #/lpf NONE SEEN A UA AMORPHOUS SEDIMENT (test FEW #/lpf None seen code = AMORU) DRUG OF ABUSE SCREEN [id number] 20:58:00 Test Item Value Reference Interpretation Comments Range UR COCAINE (test NEGATIVE NEGATIVE code = COCAU) UR MDMA (test code = NEGATIVE NEGATIVE MDMAQLU) UR CANNABINOIDS NEGATIVE NEGATIVE (test code = CANU) UR AMPHETAMINE (test NEGATIVE NEGATIVE code = AMPHU) UR BARBITURATE QUAL NEGATIVE NEGATIVE (test code = BARBQLU) UR BENZODIAZEPINE NEGATIVE NEGATIVE (test code = BENZU) UR OPIATES QUAL NEGATIVE NEGATIVE (test code = OPIAQLU) UR PHENCYCLIDINE NEGATIVE NEGATIVE Urine Drug Abuse Screen (PCP) (test code = provides preliminary PHENCU) results thatmay be confirmed by norah avila methods (i.e., GC/MS) at [facility]. Results of scre en may not be usedin crimi nal justice, job performance or professionalcre dential review, or infa nt custody issues. Negativ e Bath Level ng/ml ------- ----- Cocaine 300 Methamphetamine (Ecstacy) 500 Cannabinoid s (THC) 50 Amphetamine 100 0 Barbiturates 20 0 Benzodiazepines 200 Opiates 300 Phencyclid ine (PCP) 25 Coronavirus 2019 nCoV [id number] 20:34:00 Test Item Value Reference Range Interpretation Comments Coronavirus 2019 Negative Negative ID NOW COVI D-19 assay nCoV Bedside (test performed on the ID NOW code = [id number]) Instrum ent ulysses rapid molecular in vi tro diagnostic test utilizing anisothermal nu cleic acid amplification t echnology intendedfor the qualitative det ection of nucleic acid fr om [id number] v iral RNA in direct nasal , nasopharyngeal orthroat swabs and nasal , nasopharyngeal or throat swabseluted in viral transport media from individuals who aresuspected of COVID-19 by their health care provider. Negat pat results should be treated as presumptive and, ifinconsistent with clinical signs and symptoms or nec essaryfor patient managem ent, should be teste d with differentauthor ized or cleared molecul ar tests. Negative result s donot preclude SARS-C oV-2 infection and s hould not be used asthe s ole basis for patient man agement decisions. Negativeresults should be considered in t he context of a patient'sr ecent exposures, hist ory and presence of cli nical signs andsympto ms consistent with COVID-19.Result s are for the identificat ion of SARS-CoV-2 RNA. For Use Under an Emerge ncy Use Authorization ( EUA) Only Negative result s do not preclude SARS-C oV-2 infection andsh ould not be used as the sole basis for patient managementdecis ions. Negative result s must be combined with clinicalobserva tions, patient history , and epidemiological informatio n. COMPREHENSIVE METABOLIC [id number] 20:18:00 Test Item Value Reference Range Interpretation Comments SODIUM (test code = 142 MMOL/L 133-145 N NA) POTASSIUM (test code 3.4 MMOL/L 3.6-5.2 L = K) CHLORIDE (test code 106 MMOL/L 100-108 N = CL) CARBON DIOXIDE (test 28 MMOL/L 22-32 N code = CO2) GLUCOSE (test code = 95 MG/DL 65-99 N Results of this assay GLU) method may be f alsely depressed orele vated if patient is taki ng sulfasalazine. BLOOD UREA NITROGEN 14 MG/DL 6-20 N (test code = BUN) GLOMERULAR 121 77-179 N The Glomerular FILTRATION RATE Filtration R ate is a (test code = GFR) calculated parameterbased on serum Creatinine, pat ient age and sex. GFR va luesless than 60 mL/min/ 1.73 square meters a re indicative ofCh ronic Kidney Disease. Values less than 15 mL/min/1.73squa re meters indicate Kidney failure. The calculation for GFR is based on the CK D-EPI (2020) calculat ion. This formulais race indifferent and is the recommended for bello for GFRby the Natio nal Kidney Foundati on for Adults.The GFR will not calculate if th e sex is unknown or if thepatient's ag e is <18 years. CREATININE (test 0.91 MG/DL 0.60-1.00 N code = CREAT) TOTAL PROTEIN (test 7.0 G/DL 6.4-8.2 N code = PROT) ALBUMIN (test code = 4.1 G/DL 3.4-5.0 N ALB) GLOBULIN (test code 2.9 G/DL 1.5-3.8 N = GLOB) ALBUMIN/GLOBULIN 1.4 1.1-2.2 N RATIO (test code = A/G) CALCIUM (test code = 8.9 MG/DL 8.7-10.5 N CA) BILIRUBIN TOTAL 0.4 MG/DL 0.0-1.0 N (test code = BILT) SGOT/AST (test code 17 Units/L 15-37 N Results of this assay = AST) method may be f alsely depressed orele vated if patient is taki ng sulfasalazine. SGPT/ALT (test code 18 Units/L 30-65 L Results of this assay = ALT) method may be f alsely depressed orele vated if patient is taki ng sulfasalazine. ALKALINE PHOSPHATASE 81 Units/L 50-136 N TOTAL (test code = ALKP) [id number] 20:18:00 Test Item Value Reference Range Interpretation Comments CK (test code = CKT) 85 Units/L 39-308 N [id number] 20:18:00 Test Item Value Reference Range Interpretation Comments ACETAMINOPHEN (test < 1 MCG/ML 10-30 L Acetamin ophen is code = ACET) possibly toxic at levels of: 1. m ore than 150 MCG/ML 4 hours post catie stion. 2. more than 50 MCG/ML 12 hours post ingestion. [id number] 20:18:00 Test Item Value Reference Range Interpretation Comments SALICYLATE (test code = 4 MG/DL 0-20 N Refe rence Range: CODY) Analgesic...... ....... ..... < 10 mg/d l Therapeutic.... ....... ..... 15-20 mg/ dl Mild Toxicity....... ....... > 30 mg/dl Maria Teresa re Toxicity....... ..... > 60 mg/dl [id number] 20:18:00 Test Item Value Reference Range Interpretation Comments ALCOHOL (test code = < 3 MG/DL 0-10 N 0 - 10 : Should be ALC) interpreted as NEGATIVE. 11 - 50: None t o mild euphoria. 51 - 100: Mild influence on vi sarah and dark adaptation . > 80: Legal intoxicat ion; Depression of C NS; Increasing degr ee of poisoning. > 40 0: Fatalities repo rted. Results are for medical purposes only a nd not forlegal or emp loyment evaluative purp oses. CBC W/AUTO [id number] 20:10:00 Test Item Value Reference Range Interpretation Comments WHITE BLOOD CELL (test code = 8.73 x10 3/uL 4.80-10.80 N WBC) RED BLOOD CELL (test code = 4.66 x10 6/uL 4.7-6.1 L RBC) HEMOGLOBIN (test code = HGB) 14.8 G/DL 14.0-17.0 N HEMATOCRIT (test code = HCT) 42.3 % 42-52 N MEAN CELL VOLUME (test code = 90.8 FL 80-94 N MCV) MEAN CELL HGB (test code = MCH) 31.8 PG 27-31 H MEAN CELL HGB CONCENTRATION 35.0 G/DL 33-37 N (test code = MCHC) RED CELL DISTRIBUTION WIDTH 11.8 % 11.5-14.5 N (test code = RDW) PLATELET COUNT (test code = 222 x10 3/uL 150-450 N PLT) MEAN PLATELET VOLUME (test code 11.5 FL 7.4-10.4 H = MPV) NEUTROPHIL % (test code = NT%) 52.3 % 42-86 N LYMPHOCYTE % (test code = LY%) 34.2 % 24-44 N MONOCYTE % (test code = MO%) 10.8 % 0.0-4.0 H EOSINOPHIL % (test code = EO%) 2.1 % 0.0-2.7 N BASOPHIL % (test code = BA%) 0.6 % 0.0-0.5 H NEUTROPHIL # (test code = NT#) 4.57 x10 3/uL 1.8-7.7 N LYMPHOCYTE # (test code = LY#) 2.99 x10 3/uL 1.0-4.8 N MONOCYTE # (test code = MO#) 0.94 x10 3/uL 0.0-0.8 H EOSINOPHIL # (test code = EO#) 0.18 x10 3/uL 0.0-0.5 N BASOPHIL # (test code = BA#) 0.05 x10 3/uL 0.0-0.2 N COMPREHENSIVE METABOLIC [id number] 14:17:00 Test Item Value Reference Range Interpretation Comments SODIUM (test code = 138 MMOL/L 133-145 N NA) POTASSIUM (test code 4.0 MMOL/L 3.6-5.2 N = K) CHLORIDE (test code 101 MMOL/L 100-108 N = CL) CARBON DIOXIDE (test 26 MMOL/L 22-32 N code = CO2) GLUCOSE (test code = 100 MG/DL 65-99 H Results of this assay GLU) method may be f alsely depressed orele vated if patient is taki ng sulfasalazine. BLOOD UREA NITROGEN 18 MG/DL 6-20 N (test code = BUN) GLOMERULAR 125 77-179 N The Glomerular FILTRATION RATE Filtration R ate is a (test code = GFR) calculated parameterbased on serum Creatinine, pat ient age and sex. GFR va luesless than 60 mL/min/ 1.73 square meters a re indicative ofCh ronic Kidney Disease. Values less than 15 mL/min/1.73squa re meters indicate Kidney failure. The calculation for GFR is based on the CK D-EPI (2020) calculat ion. This formulais race indifferent and is the recommended for bello for GFRby the Natio nal Kidney Foundati on for Adults.The GFR will not calculate if th e sex is unknown or if thepatient's ag e is <18 years. CREATININE (test 0.85 MG/DL 0.60-1.00 N code = CREAT) TOTAL PROTEIN (test 7.1 G/DL 6.4-8.2 N code = PROT) ALBUMIN (test code = 4.5 G/DL 3.4-5.0 N ALB) GLOBULIN (test code 2.6 G/DL 1.5-3.8 N = GLOB) ALBUMIN/GLOBULIN 1.7 1.1-2.2 N RATIO (test code = A/G) CALCIUM (test code = 9.5 MG/DL 8.7-10.5 N CA) BILIRUBIN TOTAL 0.5 MG/DL 0.0-1.0 N (test code = BILT) SGOT/AST (test code 18 Units/L 15-37 N Results of this assay = AST) method may be f alsely depressed orele vated if patient is taki ng sulfasalazine. SGPT/ALT (test code 22 Units/L 30-65 L Results of this assay = ALT) method may be f alsely depressed orele vated if patient is taki ng sulfasalazine. ALKALINE PHOSPHATASE 93 Units/L 50-136 N TOTAL (test code = ALKP) TROP-I HIGH [id number] 14:17:00 Test Item Value Reference Range Interpretation Comments TROP-I HIGH SENSITIVITY < 4 ng/L < 76 - T he use of serial (test code = TROPIHS) sampli ng and testing protocol is a recommended pra ctice.- An elevated tro ponin level alone is often not sufficient for diagnosis of myocardial infarction.Resu lts of this assay meth od may be falsely depr essed orelevated if p atient is taking high doses of Biotin. [id number] 12:51:00 Test Item Value Reference Range Interpretation Comments ALCOHOL (test code = < 3 MG/DL 0-10 N 0 - 10 : Should be ALC) interpreted as NEGATIVE. 11 - 50: None t o mild euphoria. 51 - 100: Mild influence on vi sarah and dark adaptation . > 80: Legal intoxicat ion; Depression of C NS; Increasing degr ee of poisoning. > 40 0: Fatalities repo rted. Results are for medical purposes only a nd not forlegal or emp loyment evaluative purp oses. UA RFLX [id number] 12:28:00 Test Item Value Reference Range Interpretation Comments UA COLOR (test code = COLU) Light-Yellow YELLOW UA APPEARANCE (test code = CLEAR CLEAR APPU) UA GLUCOSE DIPSTICK (test NORMAL mg/dL NEGATIVE code = DGLUU) UA BILIRUBIN DIPSTICK (test NEGATIVE NEGATIVE code = BILU) UA KETONE DIPSTICK (test code NEGATIVE mg/dL NEGATIVE = KETU) UA SPECIFIC GRAVITY (test 1.014 1.001-1.035 N code = SGU) UA BLOOD DIPSTICK (test code NEGATIVE = CORINNA) UA PH DIPSTICK (test code = 6.0 5.5-7.0 N MYLES) UA PROTEIN DIPSTICK (test NEGATIVE mg/dL NEGATIVE code = PROU) UA UROBILINOGEN DIPSTICK NORMAL mg/dL NORMAL (test code = URO) UA NITRITE DIPSTICK (test NEGATIVE NEGATIVE code = YESSENIA) UA LEUKOCYTE ESTERASE NEGATIVE NEGATIVE DIPSTICK (test code = LEUU) UA COMMENT (test code = COMU) VOLUME 10-12 ML URINE SPECIMEN DESCRIPTION Clean Catch (test code = UASPEC) CBC W/AUTO [id number] 12:25:00 Test Item Value Reference Range Interpretation Comments WHITE BLOOD CELL (test code = 7.00 x10 3/uL 4.80-10.80 N WBC) RED BLOOD CELL (test code = 4.84 x10 6/uL 4.7-6.1 N RBC) HEMOGLOBIN (test code = HGB) 15.4 G/DL 14.0-17.0 N HEMATOCRIT (test code = HCT) 41.9 % 42-52 L MEAN CELL VOLUME (test code = 86.6 FL 80-94 N MCV) MEAN CELL HGB (test code = MCH) 31.8 PG 27-31 H MEAN CELL HGB CONCENTRATION 36.8 G/DL 33-37 N (test code = MCHC) RED CELL DISTRIBUTION WIDTH 11.5 % 11.5-14.5 N (test code = RDW) PLATELET COUNT (test code = 217 x10 3/uL 150-450 N PLT) MEAN PLATELET VOLUME (test code 11.1 FL 7.4-10.4 H = MPV) NEUTROPHIL % (test code = NT%) 54.4 % 42-86 N IMMATURE GRANULOCYTE % (test 0.1 % 0.0-2.0 N code = IG%) LYMPHOCYTE % (test code = LY%) 30.4 % 24-44 N MONOCYTE % (test code = MO%) 11.6 % 0.0-4.0 H EOSINOPHIL % (test code = EO%) 2.1 % 0.0-2.7 N BASOPHIL % (test code = BA%) 1.4 % 0.0-0.5 H NUCLEATED RBC % (test code = 0.0 % 0.0-0.0 N NRBC%) NEUTROPHIL # (test code = NT#) 3.80 x10 3/uL 1.8-7.7 N IMMATURE GRANULOCYTE # (test 0.01 x10 3/uL 0.00-0.03 N code = IG#) LYMPHOCYTE # (test code = LY#) 2.13 x10 3/uL 1.0-4.8 N MONOCYTE # (test code = MO#) 0.81 x10 3/uL 0.0-0.8 H EOSINOPHIL # (test code = EO#) 0.15 x10 3/uL 0.0-0.5 N BASOPHIL # (test code = BA#) 0.10 x10 3/uL 0.0-0.2 N NUCLEATED RBC # (test code = 0.0 X10 3/uL 0.0-0.2 N NRBC#) - XR CHEST 1 [id number] 12:07:00 [facility] 2000 Sex: M Patient Name: VIVIENNE CAMACHO Unit No: [id number] EXAMS: CPT CODE: [id number] XR CHEST 1 V 83701 Reason: syncope EXAM: - XR CHEST 1 V HISTORY: Syncope. COMPARISON: None available time of interpretation. FINDINGS: Single AP view of the chest is provided. Heart size and vascularity are within normal limits. There is no evidence of a focal consolidation. There is no pleural effusion or pneumothorax. There is nodefinite acute osseous abnormality. IMPRESSION: No radiographic evidence of acute cardiopulmonary process. at 1207 Reported and signed by: Ravi Caceres MD CC: Noni Barreto MD; Corky FARRELL Technologist:Nadine Shane, RT Trscrpt Dt/ ([id number] Orig Print D/T: S: 07/19/2022 ([id number]) [facility] [place] Doctors NAME: VIVIENNE CAMACHO [facility] PHYS: Noni Anderson [facility] [place] [address] : 2000 AGE: 22 SEX: M LOC: [facility] PHONE #: [phone] EXAM DATE: 07/19/2022 STATUS: REG ER FAX #: RAD NO: DC Dt: PAGE 1 Signed [id number] 03:48:00 Test Item Value Reference Range Interpretation Comments CK (test code = CKT) 111 Units/L 39-308 N [id number] 03:48:00 Test Item Value Reference Range Interpretation Comments ALCOHOL (test code = < 3 MG/DL 0-10 N 0 - 10 : Should be ALC) interpreted as NEGATIVE. 11 - 50: None t o mild euphoria. 51 - 100: Mild influence on vi sarah and dark adaptation . > 80: Legal intoxicat ion; Depression of C NS; Increasing degr ee of poisoning. > 40 0: Fatalities repo rted. Results are for medical purposes only a nd not forlegal or emp loyment evaluative purp oses. UA RFLX [id number] 22:42:00 Test Item Value Reference Range Interpretation Comments UA COLOR (test code DARK YELLOW YELLOW = COLU) UA APPEARANCE (test CLEAR CLEAR code = APPU) UA GLUCOSE DIPSTICK NEGATIVE mg/dL NEGATIVE (test code = DGLUU) UA BILIRUBIN 1+ NEGATIVE A Not able to rul e DIPSTICK (test code out fals e positive; = BILU) No confirmatory test. UA KETONE DIPSTICK 15 mg/dL NEGATIVE A (test code = KETU) UA SPECIFIC GRAVITY 1.025 1.001-1.035 N (test code = SGU) UA BLOOD DIPSTICK NEGATIVE NEGATIVE (test code = CORINNA) UA PH DIPSTICK (test 5.0 5.5-7.0 L code = MYLES) UA PROTEIN DIPSTICK 25 mg/dL NEGATIVE A (test code = PROU) UA UROBILINOGEN 1.0 mg/dL NORMAL DIPSTICK (test code = URO) UA NITRITE DIPSTICK NEGATIVE NEGATIVE (test code = YESSENIA) UA LEUKOCYTE NEGATIVE NEGATIVE ESTERASE DIPSTICK (test code = LEUU) UA COMMENT (test VOLUME 10-12 ML code = COMU) URINE SPECIMEN Clean Catch DESCRIPTION (test code = UASPEC) UA [id number] 22:42:00 Test Item Value Reference Range Interpretation Comments UA WBC (test code = WBCU) < 10 #/hpf <10 UA RBC (test code = RBCU) 2-5 #/hpf NONE SEEN A UA SQUAMOUS CELLS (test code 0 - 20 #/lpf <100 = SQU) UA CULTURE NEEDED? (test Criteria not met code = UACULT) UA BACTERIA (test code = FEW #/hpf NONE SEEN A BACU) UA FINE GRANULAR CAST (test 0-2 #/lpf A code = FINEU) Coronavirus 2018 nCoV [id number] 22:22:00 Test Item Value Reference Range Interpretation Comments Coronavirus 2019 Negative Negative ID NOW COVI D-19 assay nCoV Bedside (test performed on the ID NOW code = [id number]) Instrum ent ulysses rapid molecular in vi tro diagnostic test utilizing anisothermal nu cleic acid amplification t echnology intendedfor the qualitative det ection of nucleic acid fr om [id number] v iral RNA in direct nasal , nasopharyngeal orthroat swabs and nasal , nasopharyngeal or throat swabseluted in viral transport media from individuals who aresuspected of COVID-19 by their health care provider. Negat pat results should be treated as presumptive and, ifinconsistent with clinical signs and symptoms or nec essaryfor patient managem ent, should be teste d with differentauthor ized or cleared molecul ar tests. Negative result s donot preclude SARS-C oV-2 infection and s hould not be used asthe s ole basis for patient man agement decisions. Negativeresults should be considered in t he context of a patient'sr ecent exposures, hist ory and presence of cli nical signs andsympto ms consistent with COVID-19.Result s are for the identificat ion of SARS-CoV-2 RNA. For Use Under an Emerge ncy Use Authorization ( EUA) Only Negative result s do not preclude SARS-C oV-2 infection andsh ould not be used as the sole basis for patient managementdecis ions. Negative result s must be combined with clinicalobserva tions, patient history , and epidemiological informatio n. COMPREHENSIVE METABOLIC [id number] 22:21:00 Test Item Value Reference Range Interpretation Comments SODIUM (test code = 141 MMOL/L 133-145 N NA) POTASSIUM (test code 3.7 MMOL/L 3.6-5.2 N = K) CHLORIDE (test code 103 MMOL/L 100-108 N = CL) CARBON DIOXIDE (test 26 MMOL/L 22-32 N code = CO2) GLUCOSE (test code = 88 MG/DL 65-99 N Results of this assay GLU) method may be f alsely depressed orele vated if patient is taki ng sulfasalazine. BLOOD UREA NITROGEN 16 MG/DL 6-20 N (test code = BUN) GLOMERULAR 117 77-179 N The Glomerular FILTRATION RATE Filtration R ate is a (test code = GFR) calculated parameterbased on serum Creatinine, pat ient age and sex. GFR va luesless than 60 mL/min/ 1.73 square meters a re indicative ofCh ronic Kidney Disease. Values less than 15 mL/min/1.73squa re meters indicate Kidney failure. The calculation for GFR is based on the CK D-EPI (2020) calculat ion. This formulais race indifferent and is the recommended for bello for GFRby the Natio nal Kidney Foundati on for Adults.The GFR will not calculate if th e sex is unknown or if thepatient's ag e is <18 years. CREATININE (test 0.94 MG/DL 0.60-1.00 N code = CREAT) TOTAL PROTEIN (test 7.3 G/DL 6.4-8.2 N code = PROT) ALBUMIN (test code = 4.6 G/DL 3.4-5.0 N ALB) GLOBULIN (test code 2.7 G/DL 1.5-3.8 N = GLOB) ALBUMIN/GLOBULIN 1.7 1.1-2.2 N RATIO (test code = A/G) CALCIUM (test code = 9.4 MG/DL 8.7-10.5 N CA) BILIRUBIN TOTAL 0.7 MG/DL 0.0-1.0 N (test code = BILT) SGOT/AST (test code 19 Units/L 15-37 N Results of this assay = AST) method may be f alsely depressed orele vated if patient is taki ng sulfasalazine. SGPT/ALT (test code 20 Units/L 30-65 L Results of this assay = ALT) method may be f alsely depressed orele vated if patient is taki ng sulfasalazine. ALKALINE PHOSPHATASE 87 Units/L 50-136 N TOTAL (test code = ALKP) [id number] 22:21:00 Test Item Value Reference Range Interpretation Comments ACETAMINOPHEN (test < 1 MCG/ML 10-30 L Acetamin ophen is code = ACET) possibly toxic at levels of: 1. m ore than 150 MCG/ML 4 hours post catie stion. 2. more than 50 MCG/ML 12 hours post ingestion. [id number] 22:21:00 Test Item Value Reference Range Interpretation Comments SALICYLATE (test code = 5 MG/DL 0-20 N Refe rence Range: CODY) Analgesic...... ....... ..... < 10 mg/d l Therapeutic.... ....... ..... 15-20 mg/ dl Mild Toxicity....... ....... > 30 mg/dl Maria Teresa re Toxicity....... ..... > 60 mg/dl DRUG OF ABUSE SCREEN [id number] 22:12:00 Test Item Value Reference Interpretation Comments Range UR COCAINE (test NEGATIVE NEGATIVE code = COCAU) UR MDMA (test code = NEGATIVE NEGATIVE MDMAQLU) UR CANNABINOIDS NEGATIVE NEGATIVE (test code = CANU) UR AMPHETAMINE (test NEGATIVE NEGATIVE code = AMPHU) UR BARBITURATE QUAL NEGATIVE NEGATIVE (test code = BARBQLU) UR BENZODIAZEPINE NEGATIVE NEGATIVE (test code = BENZU) UR OPIATES QUAL NEGATIVE NEGATIVE (test code = OPIAQLU) UR PHENCYCLIDINE NEGATIVE NEGATIVE Urine Drug Abuse Screen (PCP) (test code = provides preliminary PHENCU) results thatmay be confirmed by norah avila methods (i.e., GC/MS) at [facility]. Results of scre en may not be usedin crimi nal justice, job performance or professionalcre dential review, or infa nt custody issues. Negativ e Bath Level ng/ml ------- ----- Cocaine 3 00 Methamphetamine (Ecstacy) 500 Cannabinoid s (THC) 50 Amphetamine 100 0 Barbiturates 20 0 Benzodiazepines 200 Opiates 300 Phe ncyclidine (PCP) 25 CBC W/AUTO [id number] 22:05:00 Test Item Value Reference Range Interpretation Comments WHITE BLOOD CELL (test code = 8.09 x10 3/uL 4.80-10.80 N WBC) RED BLOOD CELL (test code = 5.07 x10 6/uL 4.7-6.1 N RBC) HEMOGLOBIN (test code = HGB) 15.9 G/DL 14.0-17.0 N HEMATOCRIT (test code = HCT) 45.5 % 42-52 N MEAN CELL VOLUME (test code = 89.7 FL 80-94 N MCV) MEAN CELL HGB (test code = MCH) 31.4 PG 27-31 H MEAN CELL HGB CONCENTRATION 34.9 G/DL 33-37 N (test code = MCHC) RED CELL DISTRIBUTION WIDTH 12.0 % 11.5-14.5 N (test code = RDW) PLATELET COUNT (test code = 226 x10 3/uL 150-450 N PLT) MEAN PLATELET VOLUME (test code 11.4 FL 7.4-10.4 H = MPV) NEUTROPHIL % (test code = NT%) 66.6 % 42-86 N LYMPHOCYTE % (test code = LY%) 23.0 % 24-44 L MONOCYTE % (test code = MO%) 9.5 % 0.0-4.0 H EOSINOPHIL % (test code = EO%) 0.4 % 0.0-2.7 N BASOPHIL % (test code = BA%) 0.5 % 0.0-0.5 N NEUTROPHIL # (test code = NT#) 5.39 x10 3/uL 1.8-7.7 N LYMPHOCYTE # (test code = LY#) 1.86 x10 3/uL 1.0-4.8 N MONOCYTE # (test code = MO#) 0.77 x10 3/uL 0.0-0.8 N EOSINOPHIL # (test code = EO#) 0.03 x10 3/uL 0.0-0.5 N BASOPHIL # (test code = BA#) 0.04 x10 3/uL 0.0-0.2 N Notes Date/Time Note Provider Source 2022-08-02 17:39:00-00:00 [facility] EMERGENCY PROVIDER REPORT REPORT#:[id number] REPORT STATUS: Signed DATE:08/02/22 TIME: 1738 PATIENT: VIVIENNE CAMACHO UNIT #: [id number] ROOM/BED: AGE: 22 SEX: M PCP PHYS: No Primary or Family Ph ysician SERVICE AUTHOR: Sergio Shane MD * ALL edits or amendments must be made on the Cont[employer]/computer document * Sergio Shane 08/02/221738: HPI-General Illness Free Text HPI Notes Free Text HPI Notes 22-year-old male with past psychiatric admission s presented to the emergency room for concerns of "not feeling right" and not sleeping. Patient states that for the past 3 days he has been trying to go to sleep and he is unable to, he has tried drinking alcohol and is currently into xicated. He also has tried taking trazodone 100 mg at a time taking a total of 400 mg in the past 3 days. Unable to sleep. States that his head is pulsati ng, and not feeling right. States that he is trying to stay calm. No suicidal or homicidal ideations at this time. General Initial Greet Date/Time 08/02/221734 Presentation Chief Complaint __ (Ingestion? trazadone) Review of Systems Free Text ROS Notes Free Text ROS Notes CONSTITUTIONAL: No fever, fatigue or weight loss . SKIN: No rash. HENT: No congestion, ear pain, or sore throat. EYES: No recent vision problems or eye pain. ENDOCRINE: No thyroid problems. No polyuria or p olydipsia. CARDIOVASCULAR: No chest pain or edema. RESPIRATORY: No cough, shortness of breath, michael estion, or wheezing. GASTROINTESTINAL: No abdominal pain, nausea, vom iting, bloody stools or diarrhea. GENITOURINARY: No dysuria. MUSCULOSKELETAL: No joint pain or swelling. LYMPHATIC: No swollen glands. NEUROLOGIC: No seizures. No headache, focal weak ness or sensory changes. Positive pulsating sensation in the head. HEMATOLOGIC: No unusual bruising or bleeding. PSYCHIATRIC: Positive confusion, anxiety. Past Medical History - Adult Stated Complaint INGESTION Allergies Coded Allergies: No Known Allergies (07/18/22) Home Medications Reported Medications No Known Home Medications Additional Medical History Schizoaffective Physical Exam Vital Signs Review of Vital Signs Reviewed Free Text PE Notes Free Text PE Notes Gen: Well-appearing adult. No acute distress. Mo ving around excessively. Eyes: Pupils equal, responsive bilat. Resp: Even, non-labored. Musc/Sk: Ambulatory, steady gait. No obvious def ormities. Skin: pink, warm, dry. Neuro: GCS 15, A Ox4. Psych: Pressured speech. Cooperative Re-Evaluation MDM Free Text MDM Notes Free Text MDM Notes 22-year-old male with past psychiatric admission s presented to the emergency room for concerns of "not feeling right" and not sleeping. Patient evaluated upon arrival found no acute d istress Alert oriented x3, GCS 15 However he states that he does not know where h e is At this time will order altered mental status l ab work including urine toxicology and drug screen We will continue to evaluate patient. Patient Discharge Departure Discharge/Care Plan (Auto) Prescriptions Current Visit Scripts No Known Home Medications Referrals Provider Group: [facility] Address: [address] [place] [address]. [place] [address] BernardArsen brown Cathy 08/02/221911: Physical Exam Vital Signs Vital Signs First Documented: Result Date Time Pulse Ox 96 08/02 1736 B/P 142/65 08/02 1736 B/P Mean 90 08/03 1735 O2 Delivery Room air 08/03 1735 Temp 36.8 08/03 1735 Pulse 85 08/02 173 Resp 18 08/03 1735 Last Documented: Result Date Time Pulse Ox 96 08/03 1735 B/P 142/65 08/03 1735 B/P Mean 90 08/03 1735 O2 Delivery Room air 08/03 1735 Temp 36.8 08/03 1735 Pulse 85 08/02 173 Resp 18 08/03 1735 Interpretation Diagnostics Lab Results Interpretation Results Laboratory Tests 08/02/221758: [Embedded Image Not Available] Laboratory Tests: 08/02 1744 Chemistry Sodium (133 - 145 MMOL/L) 143 Potassium (3.6 - 5.2 MMOL/L) 3.8 Chloride (100 - 108 MMOL/L) 104 Carbon Dioxide (22 - 32 MMOL/L) 26 BUN (6 - 20 MG/DL) 15 Creatinine (0.60 - 1.00 MG/DL) 0.87 Estimated GFR (MDRD) (77 - 179) 124 Glucose (65 - 99 MG/DL) 89 Calcium (8.7 - 10.5 MG/DL) 9.2 Total Bilirubin (0.0 - 1.0 MG/DL) 0.2 Direct Bilirubin (0.0 - 0.3 MG/DL) 0.1 Indirect Bilirubin (0.0 - 0.7 MG/DL) 0.1 AST (15 - 37 Units/L) 58 H ALT (30 - 65 Units/L) 138 H Alkaline Phosphatase (50 - 136 Units/L) 135 Creatine Kinase (39 - 308 Units/L) 226 Troponin I High Sens (< 76 ng/L) < 4 Total Protein (6.4 - 8.2 G/DL) 7.5 Albumin (3.4 - 5.0 G/DL) 4.4 Globulin (1.5 - 3.8 G/DL) 3.1 Albumin/Globulin Ratio (1.1 - 2.2) 1.4 Hematology WBC (4.80 - 10.80 x10 3/uL) 9.76 RBC (4.7 - 6.1 x10 6/uL) 4.74 Hgb (14.0 - 17.0 G/DL) 14.8 Hct (42 - 52 %) 43.2 MCV (80 - 94 FL) 91.1 MCH (27 - 31 PG) 31.2 H MCHC (33 - 37 G/DL) 34.3 RDW Coeff of Emmanuel (11.5 - 14.5 %) 12.1 Plt Count (150 - 450 x10 3/uL) 221 MPV (7.4 - 10.4 FL) 11.3 H Neut % (Auto) (42 - 86 %) 67.2 Lymph % (Auto) (24 - 44 %) 24.1 [place] % (Auto) (0.0 - 4.0 %) 7.6 H Eos % (Auto) (0.0 - 2.7 %) 0.6 Baso % (Auto) (0.0 - 0.5 %) 0.5 Eos # (Auto) (0.0 - 0.5 x10 3/uL) 0.06 Baso # (Auto) (0.0 - 0.2 x10 3/uL) 0.05 Absolute Neuts (auto) (1.8 - 7.7 x10 3/uL) 6.56 Absolute Lymphs (auto) (1.0 - 4.8 x10 3/uL) 2.3 5 Absolute Monos (auto) (0.0 - 0.8 x10 3/uL) 0.74 Toxicology Salicylates (0 - 20 MG/DL) < 3 Urine Opiates Screen (NEGATIVE) NEGATIVE Acetaminophen (10 - 30 MCG/ML) < 1 L Ur Barbiturates Screen (NEGATIVE) NEGATIVE Ur Phencyclidine Scrn (NEGATIVE) NEGATIVE Ur Amphetamine Screen (NEGATIVE) NEGATIVE MDMA (NEGATIVE) NEGATIVE U Benzodiazepines Scrn (NEGATIVE) NEGATIVE Urine Cocaine Screen (NEGATIVE) NEGATIVE U Cannabinoids Screen (NEGATIVE) NEGATIVE Serum Alcohol (0 - 10 MG/DL) 113 H Urines Ur Spec Description Clean Catch Urine Color (YELLOW) COLORLESS L Urine Appearance (CLEAR) CLEAR Urine pH (5.5 - 7.0) 6.0 Ur Specific [place] (1.001 - 1.035) 1.010 Urine Protein (NEGATIVE mg/dL) NEGATIVE Urine Glucose (UA) (NEGATIVE mg/dL) NEGATIVE Urine Ketones (NEGATIVE mg/dL) NEGATIVE Urine Blood (NEGATIVE) NEGATIVE Urine Nitrite (NEGATIVE) NEGATIVE Urine Bilirubin (NEGATIVE) NEGATIVE Urine Urobilinogen (NORMAL mg/dL) NORMAL Ur Leukocyte Esterase (NEGATIVE) NEGATIVE Urine WBC (<10 #/hpf) < 10 Ur Squamous Epith Cells (<100 #/lpf) 0 - 20 Urine Culture Screen Criteria not met Urine Comment VOLUME 10-12 ML Recent Impressions: RADIOLOGY - XR CHEST 1 V 08/02 1844 Report Impression - Status: SIGNED Entered: 08/02/20221853 IMPRESSION: No active disease in the chest. Impression By: [email or web address] - Jere Silvestre MD Re-Evaluation MDM Free Text MDM Notes Free Text MDM Notes @1900 - pt with hx of schizophrenia, recent admi [facility]. at re-evaluation, pt is agitated, aggrav ated that he cannot sleep. I attempted to have a discussion with the patient pertaining his sx and he states they "messed him up at the [facility]." on labs, patient has elevated alcohol level He adamantly denies SI/HI and states he just wan ts to sleep. When offered psych eval, he refused and stated h e just wishes to go home. He is here voluntarily and a lthough he has obvious persecutory delusions, he has capacity to make decisions for himself. he is ambulatory and clinically sober. we will dc with return precautions. patient was being discharged, but refused to sig n dc paperwork ED Course Medication(s) Ordered Medication(s) Ordered: Antihistamine Drugs Sig/Lamar Start time Last Medication Dose Route Stop Time Status Admin Diphenhydramine HCl 25 MG X1ED STA 08/02 1909 D C PO 08/02 1910 Central Nervous System Agents Sig/Lamar Start time Last Medication Dose Route Stop Time Status Admin Acetaminophen 1,000 MG X1ED STA 08/02 1909 DC PO 08/02 1910 Gastrointestinal Drugs Sig/Lamar Start time Last Medication Dose Route Stop Time Status Admin Metoclopramide HCl 5 MG X1ED STA 08/02 1909 DC PO 08/02 1910 Patient Discharge Departure Vital Signs/Condition Vital Signs First Documented: Result Date Time Pulse Ox 96 08/02 1736 B/P 142/65 08/02 1736 B/P Mean 90 08/02 1736 O2 Delivery Room air 08/03 1735 Temp 36.8 08/02 173 Pulse 85 08/02 1736 Resp 18 08/02 1736 Last Documented: Result Date Time Pulse Ox 96 08/02 1736 B/P 142/65 06/04 1736 B/P Mean 90 08/03 1735 O2 Delivery Room air 08/03 1735 Temp 36.8 08/03 1735 Pulse 85 08/03 1735 Resp 18 08/03 1735 All vital signs available at the time of this en try have been reviewed. Clinical Impression Clinical Impression Primary Impression: Insomnia Secondary Impressions: Paranoid delusion Disposition Decision Discharge )( Discharged to Home Yes )( Time 1922 )( Date 08/02/22 Discharge/Care Plan Counseled Regarding Diagnosi s, Lab results, Imaging studies, Prescriptions, Need for follow-up, When to return to ED Patient Instructions ED Alcohol Abuse, ED Insomn ia Discharge Note I have spoken with the patie nt and/or caregivers. I have explained the patient's condition, diagnoses and daljit atment plan based on the information available to me at this time. I have answered the patient's and/ or caregiver's questions and addressed any concerns. The patient and/or careg lior have as good an understanding of the patient 's diagnosis, condition and treatment plan as can be expected at this point. The vital signs have bee n stable. The patient's condition is stable and appr opriate for discharge from the emergency department. The patient will pursue further outpatient evalu ation with the primary care physician or other designated or consulting phys ician as outlined in the discharge instructions. The patient and/or caregivers are agreeable to this plan of care and follow-up instructions have been exp lained in detail. The patient and/or caregivers have received these instructio ns in written format and have expressed an understanding of the discharge inst ructions. The patient and/or caregivers are aware that any significant change in condition or worsening of symptoms should prompt an immediate return to [facility] or the closest emergency department or a call to 911. Electronically Signed by Arsen Bernard MD on 06/21 at 1926 at 0622 RPT #:[id number] END OF REPORT 2022-07-19 11:47:00-00:00 [facility] EMERGENCY PROVIDER REPORT REPORT#:[id number] REPORT STATUS: Signed DATE:07/19/22 TIME: 1147 PATIENT: VIVIENNE CAMACHO UNIT #: [id number] ROOM/BED: AGE: 22 SEX: M PCP PHYS: Undefined Provider SERVICE AUTHOR: Corky Grace * ALL edits or amendments must be made on the el clypdronic/computer document * HPI-Syncope Free Text HPI Notes Free Text HPI Notes Patient is a 22-year-old male returning to emerg ency department From visit yesterday today valuation for mental health pavan ent reports that he is having syncopal episodes denies trauma or substance use General Confirmed Patient Yes Patient Type New patient Initial Greet Date/Time 07/19/22 1129 Assumed Care at Time 1129 Date 07/19/22 Presentation Chief Complaint Lost consciousness Syncope Description Same as prior Hx Obtained From Patient )( Onset Occurred Chronic Symptom Duration Since onset Progression since Onset Unchanged, Constant Radiation Does not radiate Severity: Onset Moderate Severity: Current Moderate Relieved by Nothing 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 Eyes Denies: Blurred bilat. Ears/Nose/Throat Denies: Hearing loss bilat. Respiratory Denies: Pleuritic pain, Shortness of breath, Whe ezing. Cardiovascular Reports: Syncope. GI Denies: Abdominal pain, Vomiting. Musculoskeletal Denies: Myalgia, Neck pain, Thoracic pain. Skin Denies: Rash. Neurologic Reports: Syncope. Psychiatric Denies: Homicidal ideation, Suicidal ideation. Past Medical History - Adult Stated Complaint CHEST [id number] Allergies Coded Allergies: No Known Allergies (07/18/22) Review of Nursing Notes Rev avail, and agree Physical Exam Vital Signs Vital Signs First Documented: Result Date Time Pulse Ox 97 07/19 1147 B/P 128/62 07/19 1147 B/P Mean 84 07/19 1147 O2 Delivery Room air 07/19 1147 Temp 98.1 07/19 1147 Pulse 80 07/19 1147 Resp 17 07/19 114 Last Documented: Result Date Time Pulse Ox 97 07/19 114 B/P 128/62 07/19 114 B/P Mean 84 07/19 114 O2 Delivery Room air 07/19 1146 Temp 98.1 07/19 114 Pulse 80 07/19 1147 Resp 17 07/19 114 Review of Vital Signs Reviewed Basic Physical Exam Basic PE HEAD: Atraumatic/NC, EYES: PERRL, conj clear, ENT: Membranes moist, NECK: Supple, ABD: Soft/non- tender, UP EXT: No gross abnormal, SKIN: No rashes, warm/dry, PSYCH: NL thought content Focused PE General/Const General/Const Awake, Alert, No acute distress MS Head Head Atraumatic, Normocephalic Eyes Eyes PERRL, EOMI Ears/Nose/Throat Ears/Nose/Throat Airway patent, Mucous membrane s moist MS Neck Neck Supple, No meningismus Resp/Chest Respiratory/Chest Breath sounds NL, Breath soun ds = bilat, No respiratory distress Cardiovascular Cardiovascular Heart rate NL, Regular rhythm, H eart sounds NL Abdomen/GI Abdomen/GI Soft, Non-tender MS Lower Extrem Lower Ext/Pelvis/MS Inspection NL, Full range o f motion Skin Skin Atraumatic, Color NL Neurologic Neurologic Oriented X3, Speech NL, No motor def icits, No sensory deficits Psychiatric Psychiatric Affect NL, Mood NL, Not suicidal, N ot homicidal Interpretation Diagnostics Lab Results Interpretation Results Laboratory Tests 07/19/22 1154: [Embedded Image Not Available] Laboratory Tests: 07/19 1154 Hematology WBC (4.80 - 10.80 x10 3/uL) 7.00 RBC (4.7 - 6.1 x10 6/uL) 4.84 Hgb (14.0 - 17.0 G/DL) 15.4 Hct (42 - 52 %) 41.9 L MCV (80 - 94 FL) 86.6 MCH (27 - 31 PG) 31.8 H MCHC (33 - 37 G/DL) 36.8 RDW Coeff of Emmanuel (11.5 - 14.5 %) 11.5 Plt Count (150 - 450 x10 3/uL) 217 MPV (7.4 - 10.4 FL) 11.1 H Neut % (Auto) (42 - 86 %) 54.4 Lymph % (Auto) (24 - 44 %) 30.4 [place] % (Auto) (0.0 - 4.0 %) 11.6 H Eos % (Auto) (0.0 - 2.7 %) 2.1 Baso % (Auto) (0.0 - 0.5 %) 1.4 H Eos # (Auto) (0.0 - 0.5 x10 3/uL) 0.15 Baso # (Auto) (0.0 - 0.2 x10 3/uL) 0.10 Abs Immat Gran (auto) (0.00 - 0.03 x10 3/uL) 0. 01 Absolute Neuts (auto) (1.8 - 7.7 x10 3/uL) 3.80 Absolute Lymphs (auto) (1.0 - 4.8 x10 3/uL) 2.1 3 Absolute Monos (auto) (0.0 - 0.8 x10 3/uL) 0.81 H Absolute Nucleated RBC (0.0 - 0.2 X10 3/uL) 0.0 Immature Gran % (0.0 - 2.0 %) 0.1 Nucleated RBC % (0.0 - 0.0 %) 0.0 Toxicology Serum Alcohol (0 - 10 MG/DL) < 3 Urines Ur Spec Description Clean Catch Urine Color (YELLOW) Light-Yellow Urine Appearance (CLEAR) CLEAR Urine pH (5.5 - 7.0) 6.0 Ur Specific [place] (1.001 - 1.035) 1.014 Urine Protein (NEGATIVE mg/dL) NEGATIVE Urine Glucose (UA) (NEGATIVE mg/dL) NORMAL Urine Ketones (NEGATIVE mg/dL) NEGATIVE Urine Blood NEGATIVE Urine Nitrite (NEGATIVE) NEGATIVE Urine Bilirubin (NEGATIVE) NEGATIVE Urine Urobilinogen (NORMAL mg/dL) NORMAL Ur Leukocyte Esterase (NEGATIVE) NEGATIVE Urine Comment VOLUME 10-12 ML Recent Impressions: RADIOLOGY - XR CHEST 1 V 07/19 1148 Report Impression - Status: SIGNED Entered: 07/19/2022 1211 IMPRESSION: No radiographic evidence of acute cardiopulmonar y process. Impression By: [email or web address] - Ravi Caceres MD Lab Imaging Statement Laboratory radiographic studies reviewed and con sidered in the medical decision-making. Point of Care Testing Pulse Oximetry Pulse Ox % 98 On: Room air Interpretation Interpreted by me, Pulse oximetr y normal Time 1153 Re-Evaluation MDM Free Text MDM Notes Free Text MDM Notes Patient is safe for discharge has been ambulator y around department without difficulty neurologically intact )( Re-Evaluation/Progress #1 )( Re-Eval Status Unchanged Patient Discharge Departure Vital Signs/Condition Vital Signs First Documented: Result Date Time Pulse Ox 97 07/19 1147 B/P 128/62 07/19 1147 B/P Mean 84 07/19 1147 O2 Delivery Room air 07/19 1147 Temp 98.1 07/19 1147 Pulse 80 07/19 1147 Resp 17 07/19 1147 Last Documented: Result Date Time Pulse Ox 97 07/19 1147 B/P 128/62 07/19 1147 B/P Mean 84 07/19 1147 O2 Delivery Room air 07/19 1147 Temp 98.1 07/19 1147 Pulse 80 07/19 1147 Resp 17 07/19 1147 All vital signs available at the time of this en try have been reviewed. Condition Stable Clinical Impression Clinical Impression Primary Impression: Syncope and collapse Time of Impression 1255 Disposition Decision Discharge )( Discharged to Home Yes )( Time 1256 )( Date 07/19/22 Discharge/Care Plan Counseled Regarding Diagnosis, Lab results, Imag ing studies Patient Instructions ED Fainting, Uncertain Caus e Referrals Provider Referral: Car Bradley Address: [address] [place] [address] [phone] [place] [address] Provider Referral: Beatriz Chen Address: [address] [place] [address] [address] [place] [address] Provider Referral: Nikko Petty MD Address: [address] [place] [address] [address] [place] [address] Discharge Note I have spoken with the patie nt and/or caregivers. I have explained the patient's condition, diagnoses and daljit atment plan based on the information available to me at this time. I have answered the patient's and/ or caregiver's questions and addressed any concerns. The patient and/or careg lior have as good an understanding of the patient 's diagnosis, condition and treatment plan as can be expected at this point. The vital signs have bee n stable. The patient's condition is stable and appr opriate for discharge from the emergency department. The patient will pursue further outpatient evalu ation with the primary care physician or other designated or consulting phys ician as outlined in the discharge instructions. The patient and/or caregivers are agreeable to this plan of care and follow-up instructions have been exp lained in detail. The patient and/or caregivers have received these instructio ns in written format and have expressed an understanding of the discharge inst ructions. The patient and/or caregivers are aware that any significant change in condition or worsening of symptoms should prompt an immediate return to [facility] or the closest emergency department or a call to 911. at 1022 RPT #:[id number] END OF REPORT
--- NOTE | 2022-10-25 13:22 | EDPHYS ---
Physician Documentation [facility] Name: Luis Fernando Smith Age: 22 yrs Sex: Male : 2000 Arrival Date: 10/25/2022 Time: 12:26 Bed 17 Private MD: ED Physician Trever Burt HPI: 10/25 13:11 This 22 yrs old Male presents to ER via EMS with complaints of Psych Problem. cp 13:11 generalized pain. "I hurt everywhere". Onset: The symptoms/episode began/occurred for cp years. Severity of symptoms: in the emergency department the symptoms are unchanged despite EMS interventions. 13:11 Patient denies any suicidal and/or homicidal ideations. cp Historical: - Allergies: 12:42 NKDA; jl7 - Home Meds: 12:42 Vraylar 1.5 mg Oral cap 1 cap once daily [Active]; jl7 - PMHx: 12:42 Bipolar disorder; Schizophrenia; jl7 - Immunization history:: Adult Immunizations unknown. - Social history:: Smoking status: Patient reports the use of cigarette tobacco products, Patient uses alcohol, occasionally. ROS: 13:12 Constitutional: Negative for fever, poor PO intake. cp 13:12 Cardiovascular: Negative for edema, palpitations. 13:12 Respiratory: Negative for cough, shortness of breath, wheezing. 13:12 Abdomen/GI: Negative for vomiting, diarrhea, constipation. 13:12 Neuro: Negative for altered mental status. 13:12 Psych: Negative for homicidal ideation, suicide gesture, suicidal ideation. 13:12 All other systems are negative. Exam: 13:13 Head/Face: Normocephalic, atraumatic. cp 13:13 Constitutional: The patient appears in no acute distress, alert, awake, non-diaphoretic, non-toxic, well developed, well nourished. 13:13 Eyes: Periorbital structures: appear normal, Pupils: equal, round, and reactive to light and accomodation, Extraocular movements: intact throughout, Conjunctiva: normal, no exudate, no injection, Lids and lashes: appear normal, bilaterally. 13:13 ENT: External ear(s): are unremarkable, Nose: is normal, Mouth: Lips: moist, Oral mucosa: moist, Posterior pharynx: is normal, airway is patent, no erythema, no exudate. 13:13 Chest/axilla: Inspection: normal. 13:13 Cardiovascular: Rate: normal. 13:13 Respiratory: the patient does not display signs of respiratory distress, Respirations: normal, Breath sounds: are clear throughout, no decreased breath sounds, no stridor, no wheezing. 13:13 Abdomen/GI: Inspection: abdomen appears normal, Palpation: abdomen is soft and non-tender, in all quadrants. 13:13 Back: ROM is normal. 13:13 Neuro: Orientation: to person, place \\T\\ time. Mentation: able to follow commands, Motor: moves all fours, strength is normal. Vital Signs: 12:37 BP 139 / 91; Pulse 84; Resp 17; Temp 97.7; Pulse Ox 100% ; Weight 68.04 kg; Height 5 jl7 ft. 2 in. ; Pain 0/10; 12:37 Body Mass Index 27.44 (68.04 kg, 157.48 cm) jl7 12:37 Pain Scale: Adult jl7 MDM: 12:45 Patient medically screened. cp 13:22 Data reviewed: vital signs, nurses notes. cp 13:22 Counseling: I had a detailed discussion with the patient and/or guardian regarding the cp historical points, exam findings, and any diagnostic results supporting the discharge/admit diagnosis, to return to the emergency department if symptoms worsen or persist or if there are any questions or concerns that arise at home. ED course: VSS. Patient denies any suicidal and/or homicidal ideations. Administered Medications: No medications were administered Disposition Summary: 10/25/22 13:22 Discharge Ordered Location: Home cp Problem: chronic cp Symptoms: are unchanged cp Condition: Stable cp Diagnosis - Chronic pain, not elsewhere classified cp - Schizophrenia, unspecified cp Followup: cp - With: Emergency Department - When: As needed - Reason: Worsening of condition Discharge Instructions: - Discharge Summary Sheet cp - Chronic Pain, Adult cp - Schizophrenia cp - Managing Schizophrenia cp Forms: - Medication Reconciliation Form cp - Thank You Letter cp - Antibiotic Education cp - Prescription Opioid Use cp - Patient Portal Instructions cp - Leadership Thank You Letter cp Signatures: Trever Rosenberg PA PA cp Leal, Jahala RN RN jl7
--- NOTE | 2022-10-25 13:22 | ER ---
Nurse's Notes [facility] Name: Luis eFrnando Smith Age: 22 yrs Sex: Male : 2000 Arrival Date: 10/25/2022 Time: 12:26 Bed 17 Private MD: Diagnosis: Chronic pain, not elsewhere classified;Schizophrenia, unspecified Presentation: 10/25 12:37 Chief complaint: EMS states: Toned out by pt's parents reporting he wants to hurt jl7 himself. Pt denies SI, denies HI, reports feeling things crawling on him. Pt denies auditory solutions. Pt reports feeling thing touching "my guerda". Pt appears agitated while being triaged, reports "This has been going on for years and everyone thinks I'm just crazy." Pt states he does not want to be transferred to a psych unit, he "just want's to be checked out.". Coronavirus screen: At this time, the client does not indicate any symptoms associated with coronavirus-19. Ebola Screen: No symptoms or risks identified at this time. Initial Sepsis Screen: Does the patient meet any 2 criteria? No. Patient's initial sepsis screen is negative. Does the patient have a suspected source of infection? No. Patient's initial sepsis screen is negative. Risk Assessment: Do you want to hurt yourself or someone else? Patient reports no desire to harm self or others. Onset of symptoms is unknown. Care prior to arrival: None. 12:37 Method Of Arrival: EMS: [facility] 12:37 Acuity: TATO 2 jl7 Triage Assessment: 12:42 General: Appears in no apparent distress. uncomfortable, Behavior is cooperative, jl7 agitated, flat. Pain: Denies pain. Historical: - Allergies: 12:42 NKDA; jl7 - Home Meds: 12:42 Vraylar 1.5 mg Oral cap 1 cap once daily [Active]; jl7 - PMHx: 12:42 Bipolar disorder; Schizophrenia; jl7 - Immunization history:: Adult Immunizations unknown. - Social history:: Smoking status: Patient reports the use of cigarette tobacco products, Patient uses alcohol, occasionally. Screenin:00 [facility] ED Fall Risk Assessment (Adult) History of falling in the last 3 months, me1 including since admission No falls in past 3 months (0 pts) Confusion or Disorientation Yes (5 pts) Intoxicated or Sedated No (0 pts) Impaired Gait No (0 pts) Mobility Assist Device Used No (0 pt) Altered Elimination No (0 pt) Score/Fall Risk Level 0 - 2 = Low Risk. Abuse screen: Denies threats or abuse. Nutritional screening: No deficits noted. Tuberculosis screening: No symptoms or risk factors identified. Assessment: 13:00 General: Appears uncomfortable, well groomed, well developed, well nourished, Behavior me1 is agitated, restless, Reports "I just want a health check. I was just sitting at home and felt something touch my guerda." Denies being suicidal or homicidal. Quick to anger when answering questions that someone has already asked him. Pain: Denies pain. Neuro: Level of Consciousness is awake, alert, obeys commands, Oriented to person, place, time, situation, Appropriate for age Reports "just sitting at home and something was touching my guerda." . Cardiovascular: Capillary refill < 3 seconds Patient's skin is warm and dry. Respiratory: Airway is patent Respiratory effort is even, unlabored, Respiratory pattern is regular, symmetrical. Psych: 13:00 [place] Suicide Severity Screening: In the past month, have you wished you were me1 or wished you could go to sleep and not wake up? Patient responds "No." "In the past month, have you actually had any thoughts of killing yourself?" Patient responds "no." "In your lifetime, have you ever done anything, started to do anything, or prepared to do anything to end your life?" Patient responds "no.". Subjective: Patient's mood is angry, Hallucinations are tactile. Objective: Patient is belligerent, Speech is loud, Affect is inappropriate. Vital Signs: 12:37 BP 139 / 91; Pulse 84; Resp 17; Temp 97.7; Pulse Ox 100% ; Weight 68.04 kg; Height 5 7 ft. 2 in. ; Pain 0/10; 12:37 Body Mass Index 27.44 (68.04 kg, 157.48 cm) 7 12:37 Pain Scale: Adult [facility] ED Course: 12:33 Patient arrived in ED. 7 12:41 Beena Stoner, HONEY is Primary Nurse. va1 12:42 Triage completed. jl7 12:42 Arm band placed on right wrist. jl7 12:45 Trever Rosenberg PA is PHCP. cp 12:45 Trveer Burt MD is Attending Physician. cp 13:00 Patient has correct armband on for positive identification. Bed in low position. Call me1 light in reach. Side rails up X 1. Provided Education on: POC. . 13:00 No provider procedures requiring assistance completed. Patient did not have IV access me1 during this emergency room visit. Administered Medications: No medications were administered Medication: 13:00 VIS not applicable for this client. me1 Outcome: 13:22 Discharge ordered by . cp 13:42 Discharged to home ambulatory. me1 13:42 Condition: stable 13:42 Discharge instructions given to patient, Instructed on discharge instructions, follow up and referral plans. Demonstrated understanding of instructions, follow-up care. 13:42 Patient left the ED. me1 Signatures: Trever Rosenberg PA PA cp Leal, Jahala, RN RN jl7 Beena Stoner RN RN me1
[2022-10-25 14:04] VITALS: BP 139/91; TEMP 97.7; O2SAT 100
== END 2022-10-25 13:42 | disposition home or self-care (01) ==
LOC: ER 12:26
DX: G89.29 Other chronic pain (principal); F20.9 Schizophrenia, unspecified; Z72.0 Tobacco use
CPT/HCPCS: 99284

== ENCOUNTER 2022-10-25 20:28 | Emergency (ER) | payer OTHER ==
--- OUTSIDE RECORDS SUMMARY | 2022-10-25 20:35 | XMS REPORT | Continuity of Care Document ---
:2000 Author Organization [facility] t Address [address] [place] [place] [address] Care Team Providers Name Role Phone DARLEEN HOWARD Primary Care Physician Unavailable DR DARLEEN HOWARD Attending Clinician Unavailable [phone] Attending Clinician Unavailable [id number] Attending Clinician Unavailable Donald Lewis Attending Clinician Unavailable Arsen Bernard Attending Clinician Unavailable Sergio Shane Attending Clinician Unavailable Raphael Monge Attending Clinician Unavailable Noni Bai Attending Clinician Unavailable Diego Muñoz Attending Clinician Unavailable DR DARLEEN HOWARD Admitting Clinician Unavailable UNDEFINED Admitting Clinician Unavailable Payers Payer Name Policy Type Policy Number Effective Date Expiration Date [facility] [id number] CHOICE [facility] [id number] CHOICE - Problems Condition Condition Condition Status Onset Resolution Last Treating Co mments Source Name Details Category Date Date Treatment Clinician Date Fractured Fractured Problem Active 2013-032017-09-02 [facility] nasal nasal 2-08 15:05:38 l bones bones 00:00: [place] (disorder) (disorder) 00 Active 02/05/2014 Problem 09/02/2017 Data migrated from [facility] on 07/28/14. [facility] Gastroesop Gastroeso Problem Active 2017-09-02 [facility] hageal phageal 15:05:38 l reflux reflux Oxford disease disease (disorder) (disorder) Active Problem 09/02/2017 Data migrated from [employer] on 07/28/14. [facility] Upper Upper Problem Resolve 2012-032017-09-02 2017-09-02 [facility] respirator respirator d 03-01 15:05:38 15:05:38 l y y 00:00: Oxford infection infection 00 (disorder) (disorder) Resolved 12/30/2012 [...] No Known MA Active UNKNOWN [facility] [place] [facility] Social History Smoking Status Start Date Stop Date Source Social History 2017-05-28 12:39:50 [facility] Medications This patient has no known medications. Immunizations Ordered Immunization Filled Immunization Date Status Commen ts Source Name Name human papillomavirus 2012-10-28 Completed Vinay rial vaccine<sup>5</sup> 05:00:00 Miladys nn diphtheria/pertussis, 2012-10-28 Completed Mem orial acel/tetanus 05:00:00 [place] adult<sup>1</sup> meningococcal 2012-10-28 Completed [facility] conjugate 05:00:00 Oxford vaccine<sup>2</sup> influenza virus 2012-10-28 Completed [facility] vaccine, live, 05:00:00 Oxford trivalent<sup>3</sup> Hx influenza 2012-10-28 Completed [facility] vaccine-unspecified<s 05:00:00 Her hawkins up>4</sup> human papillomavirus 2012-10-28 Completed Vinay rial vaccine<sup>5</sup> 05:00:00 Miladys nn diphtheria/pertussis, 2012-10-28 Completed Mem orial acel/tetanus 05:00:00 [place] adult<sup>1</sup> meningococcal 2012-10-28 Completed [facility] conjugate 05:00:00 Oxford vaccine<sup>2</sup> influenza virus 2012-10-28 Completed [facility] vaccine, live, 05:00:00 [place] trivalent<sup>3</sup> Hx influenza 2012-10-28 Completed [facility] vaccine-unspecified<s 05:00:00 Her hawkins up>4</sup> human papillomavirus 2012-10-28 Completed Vinay rial vaccine<sup>5</sup> 05:00:00 Miladys nn diphtheria/pertussis, 2012-10-28 Completed Mem orial acel/tetanus 05:00:00 Oxford adult<sup>1</sup> meningococcal 2012-10-28 Completed [facility] conjugate 05:00:00 [place] vaccine<sup>2</sup> influenza virus 2012-10-28 Completed [facility] vaccine, live, 05:00:00 Oxford trivalent<sup>3</sup> Hx influenza 2012-10-28 Completed [facility] vaccine-unspecified<s 05:00:00 Her hawkins up>4</sup> human papillomavirus 2012-10-28 Completed Vinay rial vaccine<sup>5</sup> 05:00:00 Miladys nn diphtheria/pertussis, 2012-10-28 Completed Mem orial acel/tetanus 05:00:00 Oxford adult<sup>1</sup> meningococcal 2012-10-28 Completed [facility] conjugate 05:00:00 Oxford vaccine<sup>2</sup> influenza virus 2012-10-28 Completed [facility] vaccine, live, 05:00:00 Oxford trivalent<sup>3</sup> Hx influenza 2012-10-28 Completed [facility] vaccine-unspecified<s 05:00:00 Her hawkins up>4</sup> human papillomavirus 2012-10-28 Completed Vinay rial vaccine<sup>5</sup> 05:00:00 Miladys nn diphtheria/pertussis, 2012-10-28 Completed Mem orial acel/tetanus 05:00:00 Oxford adult<sup>1</sup> meningococcal 2012-10-28 Completed [facility] conjugate 05:00:00 [place] vaccine<sup>2</sup> influenza virus 2012-10-28 Completed [facility] vaccine, live, 05:00:00 Oxford trivalent<sup>3</sup> Hx influenza 2012-10-28 Completed [facility] vaccine-unspecified<s 05:00:00 Her hawkins up>4</sup> human papillomavirus 2012-10-28 Completed Vinay rial vaccine<sup>5</sup> 05:00:00 Miladys nn diphtheria/pertussis, 2012-10-28 Completed Mem orial acel/tetanus 05:00:00 [place] adult<sup>1</sup> diphtheria/pertussis, 2012-10-28 Completed Mem orial acel/tetanus 05:00:00 [place] adult<sup>1</sup> meningococcal 2012-10-28 Completed [facility] conjugate 05:00:00 Oxford vaccine<sup>2</sup> influenza virus 2012-10-28 Completed [facility] vaccine, live, 05:00:00 Oxford trivalent<sup>3</sup> Hx influenza 2012-10-28 Completed [facility] vaccine-unspecified<s 05:00:00 Her hawkins up>4</sup> human papillomavirus 2012-10-28 Completed Vinay rial vaccine<sup>5</sup> 05:00:00 Miladys nn meningococcal 2012-10-28 Completed [facility] conjugate 05:00:00 [place] vaccine<sup>2</sup> diphtheria/pertussis, 2012-10-28 Completed Mem orial acel/tetanus 05:00:00 [place] adult<sup>1</sup> influenza virus 2012-10-28 Completed [facility] vaccine, live, 05:00:00 [place] trivalent<sup>3</sup> meningococcal 2012-10-28 Completed [facility] conjugate 05:00:00 Oxford vaccine<sup>2</sup> influenza virus 2012-10-28 Completed [facility] vaccine, live, 05:00:00 [place] trivalent<sup>3</sup> Hx influenza 2012-10-28 Completed [facility] vaccine-unspecified<s 05:00:00 Her hawkins up>4</sup> human papillomavirus 2012-10-28 Completed Vinay rial vaccine<sup>5</sup> 05:00:00 Miladys nn Hx influenza 2012-10-28 Completed [facility] vaccine-unspecified<s 05:00:00 Her hawkins up>4</sup> human papillomavirus 2012-10-28 Completed Vinay rial vaccine<sup>5</sup> 05:00:00 Miladys nn diphtheria/pertussis, 2012-10-28 Completed Mem orial acel/tetanus 05:00:00 Oxford adult<sup>1</sup> meningococcal 2012-10-28 Completed [facility] conjugate 05:00:00 [place] vaccine<sup>2</sup> influenza virus 2012-10-28 Completed [facility] vaccine, live, 05:00:00 Oxford trivalent<sup>3</sup> Hx influenza 2012-10-28 Completed [facility] vaccine-unspecified<s 05:00:00 Her hawkins up>4</sup> human papillomavirus 2012-10-28 Completed Vinay rial vaccine<sup>5</sup> 05:00:00 Miladys nn diphtheria/pertussis, 2012-10-28 Completed Mem orial acel/tetanus 05:00:00 [place] adult<sup>1</sup> meningococcal 2012-10-28 Completed [facility] conjugate 05:00:00 [place] vaccine<sup>2</sup> influenza virus 2012-10-28 Completed [facility] vaccine, live, 05:00:00 Oxford trivalent<sup>3</sup> Hx influenza 2012-10-28 Completed [facility] vaccine-unspecified<s 05:00:00 Her hawkins up>4</sup> Hx pneumococcal 2011-01-26 Completed [facility] vaccine<sup>6</sup> 18:29:21 Miladys nn Hx pneumococcal 2011-01-26 Completed [facility] vaccine<sup>6</sup> 18:29:21 Miladys nn Hx pneumococcal 2011-01-26 Completed [facility] vaccine<sup>6</sup> 18:29:21 Miladys nn Hx pneumococcal 2011-01-26 Completed [facility] vaccine<sup>6</sup> 18:29:21 Miladys nn Hx pneumococcal 2011-01-26 Completed [facility] vaccine<sup>6</sup> 18:29:21 Miladys nn Hx pneumococcal 2011-01-26 Completed [facility] vaccine<sup>6</sup> 18:29:21 Mialdys nn Hx pneumococcal 2011-01-26 Completed [facility] vaccine<sup>6</sup> [...] A 2006-08-12 Completed [facility] vaccine<sup>12</sup> 17:25:17 Herm eevlyne Hx hepatitis A 2006-08-12 Completed [facility] vaccine<sup>12</sup> [...] measles/mumps/rubella 2003-01-15 Completed Mem orial virus 18:25:17 Oxford vaccine<sup>18</sup> Hx diphth/pertussis, 2003-01-15 Completed Vinay rial acellular/tetanus<sup 18:25:17 Her hawkins >20</sup> Hx poliovirus 2003-01-15 Completed [facility] vaccine-unspecified<s 18:25:17 Her hawkins up>14</sup> measles/mumps/rubella 2003-01-15 Completed Mem orial virus 18:25:17 Oxford vaccine<sup>18</sup> Hx diphth/pertussis, 2003-01-15 Completed Vinay rial acellular/tetanus<sup 18:25:17 Her hawkins >20</sup> Hx poliovirus 2003-01-15 Completed [facility] vaccine-unspecified<s 18:25:17 Her hawkins up>14</sup> Hx poliovirus 2003-01-15 Completed [facility] vaccine-unspecified<s 18:25:17 Her hawkins up>14</sup> measles/mumps/rubella 2003-01-15 Completed Mem orial virus 18:25:17 Oxford vaccine<sup>18</sup> Hx diphth/pertussis, 2003-01-15 Completed Vinay rial acellular/tetanus<sup 18:25:17 Her hawkins >20</sup> measles/mumps/rubella 2003-01-15 Completed Mem orial virus 18:25:17 [place] vaccine<sup>18</sup> Hx diphth/pertussis, 2003-01-15 Completed Vinay rial acellular/tetanus<sup 18:25:17 Her hawkins >20</sup> Hx poliovirus 2003-01-15 Completed [facility] vaccine-unspecified<s 18:25:17 Her hawkins up>14</sup> measles/mumps/rubella 2003-01-15 Completed Mem orial virus 18:25:17 Oxford vaccine<sup>18</sup> Hx diphth/pertussis, 2003-01-15 Completed Vinay rial acellular/tetanus<sup 18:25:17 Her hawkins >20</sup> Hx poliovirus 2003-01-15 Completed [facility] vaccine-unspecified<s 18:25:17 Her hawkins up>14</sup> measles/mumps/rubella 2003-01-15 Completed Mem orial virus 18:25:17 Oxford vaccine<sup>18</sup> Hx diphth/pertussis, 2003-01-15 Completed Vinay rial acellular/tetanus<sup 18:25:17 Her hawkins >20</sup> Hx poliovirus 2003-01-15 Completed [facility] vaccine-unspecified<s 18:25:17 Her hawkins up>14</sup> measles/mumps/rubella 2003-01-15 Completed Mem orial virus 18:25:17 Oxford vaccine<sup>18</sup> Hx diphth/pertussis, 2003-01-15 Completed Vinay rial acellular/tetanus<sup 18:25:17 Her hawkins >20</sup> Hx poliovirus 2003-01-15 Completed [facility] vaccine-unspecified<s 18:25:17 Her hawkins up>14</sup> measles/mumps/rubella 2003-01-15 Completed Mem orial virus 18:25:17 Oxford vaccine<sup>18</sup> Hx diphth/pertussis, 2003-01-15 Completed Vinay rial acellular/tetanus<sup 18:25:17 Her hawkins >20</sup> Hx poliovirus 2003-01-15 Completed [facility] vaccine-unspecified<s 18:25:17 Her hawkins up>14</sup> measles/mumps/rubella 2003-01-15 Completed Mem orial virus 18:25:17 Oxford vaccine<sup>18</sup> Hx diphth/pertussis, 2003-01-15 Completed Vinay rial [...] measles/mumps/rubella 2000-01-14 Completed Mem orial virus 18:25:17 Oxford vaccine<sup>19</sup> Hx pneumococcal 2000-01-14 Completed [facility] vaccine<sup>7</sup> 18:25:17 Miladys nn measles/mumps/rubella 2000-01-14 Completed Mem orial virus 18:25:17 Oxford vaccine<sup>19</sup> Hx pneumococcal 2000-01-14 Completed [facility] vaccine<sup>7</sup> 18:25:17 Miladys nn varicella virus 2000-01-14 Completed [facility] vaccine<sup>11</sup> 18:25:17 Herm evelyne measles/mumps/rubella 2000-01-14 Completed Mem orial virus 18:25:17 Oxford vaccine<sup>19</sup> Hx pneumococcal 2000-01-14 Completed [facility] vaccine<sup>7</sup> [...] Hx pneumococcal 1999 Completed [facility] vaccine<sup>8</sup> 17:25:17 Mliadys nn Hx pneumococcal 1999 Completed [facility] vaccine<sup>8</sup> [...] 18:25:17 Herm evelyne Hx diphth/pertussis, 1999 Completed Ivnay rial acellular/tetanus<sup 18:25:17 Her hawkins >24</sup> Hx [...] Nader Brannon Height 2017-05-28 12:34:00 163.83 cm Katie Marianoann Weight 2017-05-28 12:34:00 [facility] [place] BMI Calculated 2017-05-28 12:34:00 Nader Martínezann Systolic (mm Hg) 2017-05-28 12:34:00 Vinay Weir Diastolic (mm Hg) 2017-05-28 12:34:00 [facility] faraz Weir Heart Rate 2017-05-28 12:34:00 [facility] [place] Procedures This patient has no known procedures. Encounters Start End Encounter Admission Attending Care Care Encounter Source Date/Time Date/Time Type Type Clinicians Facility Department ID 2022-02-10 Inpatient TEXANA TEXANA [id number] [place] 10:01:09 [id number] [place] 2022-01-07 Outpatient DARLEEN HOWARD ELCAMPO ELCAMPO [id number] [place] 16:21:38 [id number] [place] [id number] 2022-01-06 Inpatient TEXANA TEXANA [id number] [place] 15:24:26 [id number] [place] 2022-01-01 Outpatient ELCAMPO ELCAMPO [id number] [place] 16:22:26 [id number] [place] [facility] 2022-01-01 Inpatient TEXANA TEXANA [id number] [place] 09:02:34 [id number] [place] 2021-12-31 Inpatient TEXANA TEXANA [id number] [place] 09:58:20 [id number] [place] 2021-10-25 Outpatient ELCAMPO ELCAMPO [id number] [place] 10:24:07 [id number] [place] [facility] 2022-08-12 2022-08-12 Emergency EM Masters-Yaneli [facility] ER [id number] [facility] 13:01:00 14:20:[address] [facility] 2022-08-02 2022-08-02 Emergency EM Marco Antonio, [facility] ER [id number] [facility] 17:35:00 19:15:00 Arsen 01 [facility] 2022-07-22 2022-07-22 Emergency EM Acosta, [facility] ER [id number] [facility] 13:22:00 23:04:00 Sergio 69 [facility] 2022-07-21 2022-07-22 Emergency EM Saleem, [facility] ER [id number] [facility] 19:06:00 07:56:00 Lim 60 [facility] 2022-07-19 2022-07-19 Emergency EL Meagan [facility] ER [id number] [facility] 11:29:00 13:32:00 [facility] 2022-07-18 2022-07-19 Emergency EM Diego Muñoz [facility] ER DO00 [id number] [facility] 21:21:00 11:36:00 64 [facility] 2022-01-08 2022-01-08 Outpatient M LEE DARLEEN ELCAMPO [facility] [id number] [place] 16:23:00 16:23:00 [id number] [place] [id number] [facility] 2022-01-01 2022-01-01 Outpatient M LEE DARLEEN ELCAMPO [facility] [id number] [place] 16:23:00 21:20:00 [id number] [place] [id number] [facility] 2021-10-27 2021-10-27 Outpatient M LEE DARLEEN ELCAMPO [facility] [id number] [place] 10:24:00 10:24:00 [id number] [place] [id number] [facility] 2017-05-27 2017-05-28 Outpatient nullFlavo [facility] 4 [id number] [facility] 19:45:00 04:59:59 r Medicine El 02 nereida Weir 2017-05-27 2017-05-28 Outpatient nullFlavo [facility] [id number] Memoria 19:45:00 04:59:59 r Medicine El 02 nereida Weir 2017-05-27 2017-05-27 Outpatient MHMG [facility]MG [id number] 14:45:00 23:59:59 02 2017-05-27 2017-05-27 Outpatient MHIE MHIE [id number] Memoria 14:45:00 14:45:00 02 nereida Weir 2016-05-08 2016-05-08 Outpatient MHIE MHIE [id number] [facility]oria 13:30:00 13:30:00 01 nereida Weir 2016-05-08 2016-05-08 [id number] 13:30:00 13:30:00 nereida [place] Results Test Description Test Time Test Comments [...] the annita mmended formula for GFRby the [facility] for Adults.The GFR will [...] Units/L 50-136 N (test code = ALKP) [id number] 13:49:00 Test Item Value Reference Range Interpretation Comments ACETAMINOPHEN (test < 1 MCG/ML 10-30 L Acetamin ophen is code = ACET) possibly toxic at levels of: 1. m ore than 150 MCG/ML 4 hours post catie stion. 2. more than 50 MCG/ML 12 hours post ingestion. [id number] 13:49:00 Test Item Value Reference Range Interpretation Comments SALICYLATE (test code = < 3 MG/DL 0-20 N Refe rence Range: CODY) Analgesic...... ...... ...... < 10 mg/ dl Therapeutic.... ...... ...... 15-20 mg /dl Mild Toxicity....... ...... . > 30 mg/dl Se destiney Toxicity....... ..... > 60 mg/dl [id number] 13:49:00 Test Item Value Reference Range Interpretation [...] emp loyment evaluative purp oses. CBC W/AUTO [id number] 13:32:00 Test Item Value Reference Range Interpretation [...] 3/uL 0.0-0.2 N - XR CHEST 1 [id number] 18:51:00 [facility] 2000 Sex: M Patient Name: VIVIENNE CAMACHO Unit No: [id number] EXAMS: CPT CODE: [id number] XR CHEST 1 V [id number] Reason: altered mental status EXAM: Chest one [...] Shane MD Technologist: KEISHA Rhodes Trscrpt Dt/ (1850)[email or web address] Orig Print D/T: S: 08/02/2022 (1853) [facility] NAME: VIVIENNE CAMACHO [id number] [facility] PHYS: [place] [address] : 2000 AGE: 22 SEX: M LOC: DWingNER PHONE #: [phone] EXAM DATE: 08/02/2022 STATUS: PRE ER FAX #: RAD NO: DC Dt: PAGE 1 Signed [id number] 18:31:00 Test Item Value Reference Range Interpretation Comments ACETAMINOPHEN (test < 1 MCG/ML 10-30 L Acetamin ophen is code = ACET) possibly toxic at levels of: 1. m ore than 150 MCG/ML 4 hours post catie stion. 2. more than 50 MCG/ML 12 hours post ingestion. [id number] 18:31:00 Test Item Value Reference Range Interpretation Comments SALICYLATE (test code = < 3 MG/DL 0-20 N Refe rence Range: CODY) Analgesic...... ...... ...... < 10 mg/ dl Therapeutic.... ...... ...... 15-20 mg /dl Mild Toxicity....... ...... . > 30 mg/dl Se destiney Toxicity....... ..... > 60 mg/dl [id number] 18:31:00 Test Item Value Reference Range Interpretation Comments ALCOHOL (test code = 113 MG/DL 0-10 H 0 - 10 : Should be ALC) [...] forlegal or emp loyment evaluative purp oses. BASIC METABOLIC [id number] 18:31:00 Test Item Value Reference Range Interpretation [...] 9.2 MG/DL 8.7-10.5 N CA) HEPATIC FUNCTION [id number] 18:31:00 Test Item Value Reference Range Interpretation [...] MG/DL 0.0-0.7 N (test code = BILIND) [id number] 18:31:00 Test Item Value Reference Range Interpretation Comments CK (test code = CKT) 226 Units/L 39-308 N TROP-I HIGH [id number] 18:31:00 Test Item Value Reference Range Interpretation [...] atient is taking high doses of Biotin. DRUG OF ABUSE SCREEN [id number] 18:26:00 Test Item Value Reference Interpretation Comments [...] by norah avila methods (i.e., GC/MS) at [facility]. Results of scre en may not be usedin crimi nal justice, job performance or professionalcre dential review, or infa nt custody issues. Negativ e Arthur Level ng/ml ------- ----- Cocaine 300 Methamphetamine (Ecstacy) 500 Cannabinoid s (THC) 50 Amphetamine 100 0 Barbiturates 20 0 Benzodiazepines 200 Opiates 300 Phencyclid ine (PCP) 25 UA RFLX MICROSCOPIC [id number] 18:24:00 Test Item Value Reference Range Interpretation [...] RiskForSepsis-no oth srcURINE SOURCE: Clean CatchCBC W/AUTO [id number] 18:23:00 Test Item Value Reference Range Interpretation [...] 0.05 x10 3/uL 0.0-0.2 N UA RFLX [id number] 16:52:00 Test Item Value Reference Range Interpretation [...] Catch (test code = UASPEC) COMPREHENSIVE METABOLIC [id number] 16:29:00 Test Item Value Reference Range Interpretation [...] the recommended for bello for GFRby the [facility] on for Adults.The GFR will [...] TOTAL (test code = ALKP) THYROID STIMULATING [id number] 16:29:00 Test Item Value Reference Range Interpretation Comments THYROID STIMULATING 0.62 0.42-5.47 N Micro-In ternational HORMONE (test code = TSH) Un its/LResults of this assay method ma y be falsely depress ed orelevated if p atient is taking high doses of Biotin. [id number] 16:29:00 Test Item Value Reference Range Interpretation Comments CK (test code = CKT) 59 Units/L 39-308 N [id number] 16:29:00 Test Item Value Reference Range Interpretation Comments ACETAMINOPHEN (test < 1 MCG/ML 10-30 L Acetamin ophen is code = ACET) possibly toxic at levels of: 1. m ore than 150 MCG/ML 4 hours post catie stion. 2. more than 50 MCG/ML 12 hours post ingestion. [id number] 16:29:00 Test Item Value Reference Range Interpretation Comments ALCOHOL (test code = < 3 MG/DL 0-10 N 0 - 10 : Should be ALC) interpreted as NEGATIVE. 11 - 50: None t o mild euphoria. 51 - 100: Mild influence on vi sarah and dark adaptation . > 80: Legal intoxicat ion; Depression of C NS; Increasing degr ee of poisoning. > 4 00: Fatalities repo rted. Results are for medical purposes only a nd not forlegal or emp loyment evaluative purp oses. CBC W/AUTO [id number] 16:09:00 Test Item Value Reference Range Interpretation [...] X10 3/uL 0.0-0.2 N NRBC#) UA RFLX [id number] 20:58:00 Test Item Value Reference Range Interpretation [...] Catch DESCRIPTION (test code = UASPEC) UA [id number] 20:58:00 Test Item Value Reference Range Interpretation [...] code = AMORU) DRUG OF ABUSE SCREEN [id number] 20:58:00 Test Item Value Reference Interpretation Comments [...] by norah avila methods (i.e., GC/MS) at [facility]. Results of scre en may not be usedin crimi nal justice, job performance or professionalcre dential review, or infa nt custody issues. Negati ve Arthur Level ng/ml ------- ----- Cocaine 3 00 Methamphetamine (Ecstacy) 500 Cannabinoid s (THC) 50 Amphetamine 100 0 Barbiturates 20 0 Benzodiazepines 200 Opiates 300 Phencyclidi ne (PCP) 25 Coronavirus 2019 nCoV [id number] 20:34:00 Test Item Value Reference Range Interpretation Comments Coronavirus 2019 Negative Negative ID NOW COVI D-19 assay nCoV Bedside (test performed on the ID NOW code = [id number]) Instrum ent ulysses rapid molecular in vi tro diagnostic test utilizing anisothermal nu cleic acid amplification t echnology intendedfor the qualitative det ection of nucleic acid fr om rpmQYTO-DoV-2 v iral RNA in direct nasal , [...] , and epidemiological informatio n. COMPREHENSIVE METABOLIC [id number] 20:18:00 Test Item Value Reference Range Interpretation [...] 50-136 N TOTAL (test code = ALKP) [id number] 20:18:00 Test Item Value Reference Range Interpretation Comments CK (test code = CKT) 85 Units/L 39-308 N [id number] 20:18:00 Test Item Value Reference Range Interpretation Comments ACETAMINOPHEN (test < 1 MCG/ML 10-30 L Acetamin ophen is code = ACET) possibly toxic at levels of: 1. m ore than 150 MCG/ML 4 hours post catie stion. 2. more than 50 MCG/ML 12 hours post ingestion. [id number] 20:18:00 Test Item Value Reference Range Interpretation Comments SALICYLATE (test code = 4 MG/DL 0-20 N Refe rence Range: CODY) Analgesic...... ....... ..... < 10 mg/d l Therapeutic.... ....... ..... 15-20 mg/ dl Mild Toxicity....... ....... > 30 mg/dl Maria Teresa re Toxicity....... ..... > 60 mg/dl [id number] 20:18:00 Test Item Value Reference Range Interpretation [...] emp loyment evaluative purp oses. CBC W/AUTO [id number] 20:10:00 Test Item Value Reference Range Interpretation [...] 0.05 x10 3/uL 0.0-0.2 N COMPREHENSIVE METABOLIC [id number] 14:17:00 Test Item Value Reference Range Interpretation [...] the recommended for bello for GFRby the [facility] on for Adults.The GFR [...] TOTAL (test code = ALKP) TROP-I HIGH [id number] 14:17:00 Test Item Value Reference Range Interpretation [...] atient is taking high doses of Biotin. [id number] 12:51:00 Test Item Value Reference Range Interpretation [...] emp loyment evaluative purp oses. UA RFLX [id number] 12:28:00 Test Item Value Reference Range Interpretation [...] Catch (test code = UASPEC) CBC W/AUTO [id number] 12:25:00 Test Item Value Reference Range Interpretation [...] 0.0-0.2 N NRBC#) - XR CHEST 1 [id number] 12:07:00 [facility] : 2000 Sex: M Patient Name: VIVIENNE CAMACHO Unit No: [id number] EXAMS: CPT CODE: [id number] XR CHEST 1 V [id number] Reason: syncope EXAM: - XR CHEST 1 [...] MD CC: Noni Barreto MD; Corky FARRELL Technologist: Nadine Shane, RT Trscrpt Dt/ (1207)[id number] Orig Print D/T: S: 07/19/2022 (1441) [facility] NAME: VIVIENNE CAMACHO[address] PHYS: [place] [address] : 2000 AGE: 22 SEX: M LOC: GREGORY PHONE #: [phone] EXAM DATE: 07/19/2022 STATUS: REG ER FAX #: RAD NO: DC Dt: PAGE 1 Signed ReportCK 2022-07-19 03:48:00 Test Item Value Reference Range Interpretation Comments CK (test code = CKT) 111 Units/L 39-308 N [id number] 03:48:00 Test Item Value Reference Range Interpretation [...] emp loyment evaluative purp oses. UA RFLX [id number] 22:42:00 Test Item Value Reference Range Interpretation [...] Catch DESCRIPTION (test code = UASPEC) UA [id number] 22:42:00 Test Item Value Reference Range Interpretation [...] 0-2 #/lpf A code = FINEU) Coronavirus 2019 nCoV [id number] 22:22:00 Test Item Value Reference Range Interpretation Comments Coronavirus 2019 Negative Negative ID NOW COVI D-19 assay nCoV Bedside (test performed on the ID NOW code = [id number]) Instrum ent ulysses rapid molecular in vi tro diagnostic test utilizing anisothermal nu cleic acid amplification t echnology intendedfor the qualitative det ection of nucleic acid fr om [id number] v iral RNA in direct nasal , [...] , and epidemiological informatio n. COMPREHENSIVE METABOLIC [id number] 22:21:00 Test Item Value Reference Range Interpretation [...] the recommended for bello for GFRby the Nat n[facility] Kidney Foundati on for Adults.The GFR [...] 50-136 N TOTAL (test code = ALKP) [id number] 22:21:00 Test Item Value Reference Range Interpretation Comments ACETAMINOPHEN (test < 1 MCG/ML 10-30 L Acetamin ophen is code = ACET) possibly toxic at levels of: 1. m ore than 150 MCG/ML 4 hours post catie stion. 2. more than 50 MCG/ML 12 hours post ingestion. [id number] 22:21:00 Test Item Value Reference Range Interpretation Comments SALICYLATE (test code = 5 MG/DL 0-20 N Refe rence Range: CODY) Analgesic...... ....... ..... < 10 mg/d l Therapeutic.... ....... ..... 15-20 mg/ dl Mild Toxicity....... ....... > 30 mg/dl Maria Teresa re Toxicity....... ..... > 60 mg/dl DRUG OF ABUSE SCREEN [id number] 22:12:00 Test Item Value Reference Interpretation Comments [...] by norah avila methods (i.e., GC/MS) at [facility]. Results of scre en may not be usedin crimi nal justice, job performance or professionalcre dential review, or infa nt custody issues. Negativ e Arthur Level ng/ml ------- ----- Cocaine 300 Methamphetamine (Ecstacy) 500 Cannabinoid s (THC) 50 Amphetamine 10 00 Barbiturates 20 0 Benzodiazepines 200 Opiates 300 Phencyclid ine (PCP) 25 CBC W/AUTO [id number] 22:05:00 Test Item Value Reference Range Interpretation [...] Notes Date/Time Note Provider Source 2022-08-02 17:39:00-00:00 [facility] ([facility]) OR A CAMP[facility] OF [facility] EMERGENCY PROVIDER REPORT REPORT#:[id number] REPORT STATUS: Signed DATE:08/02/22 TIME: 1738 PATIENT: VIVIENNE CAMACHO UNIT #: [id number] ROOM/BED: AGE: 22 SEX: M PCP PHYS: No Primary or Family P hysician SERVICE AUTHOR: Sergio Shane MD * ALL edits or amendments must be made on the [employer]/computer document * Sergio Shane 08/02/221738: HPI-General Illness [...] No Known Home Medications Referrals Provider Group: [facility] Address: [address] [place] [id number] Arsen Bernard 08/02/221911: Physical Exam Vital Signs Vital Signs First Documented: Result Date Time Pulse Ox 96 08/02 1736 B/P 142/65 /04 1736 B/P Mean 90 / 1736 O2 Delivery Room air 08/02 1736 Temp 36.8 / 1736 Pulse 85 / 1736 Resp 18 08/02 173 Last Documented: Result Date Time Pulse Ox 96 / 1736 B/P 142/65 / 1736 B/P Mean 90 08/02 1736 O2 Delivery Room air 08/02 1736 Temp 36.8 / 1736 Pulse 85 08/02 1736 Resp 18 08/03 1735 Interpretation Diagnostics Lab Results Interpretation Results Laboratory Tests 08/02/22 175: [Embedded Image Not Available] Laboratory Tests: 08/02 [...] % (Auto) (24 - 44 %) 24.1 Reagan % (Auto) (0.0 - 4.0 %) 7.6 [...] pH (5.5 - 7.0) 6.0 Ur Specific Keaton (1.001 - 1.035) 1.010 Urine Protein (NEGATIVE [...] 1844 Report Impression - Status: SIGNED Entered: 08/02/2022 2721 IMPRESSION: No active disease in the chest. Impression By: MaribellALJorge - Jere Silvestre MD Re-Evaluation MDM Free Text MDM Notes Free Text MDM Notes @1900 - pt with hx of schizophrenia, recent admi ssion to the [facility]. at re-evaluation, pt is agitated, aggrav ated that he cannot sleep. I attempted to have a discussion with the patient pertaining his sx and he states they "messed him up at the [facility]." on labs, patient has elevated alcohol level [...] X1ED STA 08/02 1909 DC PO 08/02 191 Gastrointestinal Drugs Sig/Lamar Start time Last Medication Dose Route Stop Time Status Admin Metoclopramide HCl 5 MG X1ED STA 08/02 1909 DC PO 08/02 191 Patient Discharge Departure Vital Signs/Condition Vital Signs First Documented: Result Date Time Pulse Ox 96 06/ 1736 B/P 142/65 06/04 1736 B/P Mean 90 /04 1736 O2 Delivery Room air 08/02 1736 Temp 36.8 06/04 1736 Pulse 85 06/04 1736 Resp 18 08/02 1736 Last Documented: Result Date Time Pulse Ox 96 06/04 1736 B/P 142/65 06/04 1736 B/P Mean 90 /04 1736 O2 Delivery Room air / 1736 Temp 36.8 06/04 1736 Pulse 85 06/04 1736 Resp 18 / 1736 All vital signs available at the time of this en try have been reviewed. Clinical Impression Clinical Impression Primary Impression: Insomnia Secondary Impressions: Paranoid delusion Disposition Decision Discharge )( Discharged to Home Yes )( Time 1922 )( Date 06/04/23 Discharge/Care Plan Counseled Regarding Diagnosi s, Lab [...] symptoms should prompt an immediate return to [facility] or the closest emergency department or a call to 911. Electronically Signed by Arsen Bernard MD on 06/21 at 1926 at 0622 RPT #:[id number] END OF REPORT 2022-07-19 11:47:00-00:00 [facility] ([facility]) OR A [facility] OF [facility] EMERGENCY PROVIDER REPORT REPORT#:[id number] REPORT STATUS: Signed DATE:07/19/22 TIME: 1147 PATIENT: VIVIENNE CAMACHO UNIT #: [id number] ROOM/BED: AGE: 22 SEX: M PCP PHYS: Undefined Provider SERVICE AUTHOR: Corky Grace * ALL edits or amendments must be made on the [employer]/computer document * HPI-Syncope Free Text HPI Notes [...] Current Moderate Relieved by Nothing Context Established Smoke Chaser No Recent Healthcare Recent hospitalization, Recent testing, [...] Medical History - Adult Stated Complaint CHEST [id number] Allergies Coded Allergies: No Known Allergies (07/18/22) [...] 80 07/19 1147 Resp 17 07/19 1147 Review of Vital Signs Reviewed Basic Physical [...] [Embedded Image Not Available] Laboratory Tests: 07/19 115 Hematology WBC (4.80 - 10.80 x10 3/uL) [...] % (Auto) (24 - 44 %) 30.4 Reagan % (Auto) (0.0 - 4.0 %) 11.6 H Eos % (Auto) (0.0 - 2.7 %) 2.1 Baso % (Auto) (0.0 - 0.5 %) 1.4 H Eos # (Auto) (0.0 - 0.5 x10 3/uL) 0.15 Baso # (Auto) (0.0 - 0.2 x10 3/uL) 0.10 Abs Immat Gran (auto) (0.00 - 0.03 x10 3/uL) 0. 01 Absolute Neuts (auto) (1.8 - 7.7 x10 3/uL) 3.8 0 Absolute Lymphs (auto) (1.0 - 4.8 x10 [...] pH (5.5 - 7.0) 6.0 Ur Specific Keaton (1.001 - 1.035) 1.014 Urine Protein (NEGATIVE [...] of acute cardiopulmonar y process. Impression By: [email or web address] - Ravi Caceres MD Lab Imaging Statement [...] e Referrals Provider Referral: Car Bradley Address: [address] [place] [address] [address] [place] [address] Provider Referral: Beatriz Chen Address: [address] [place] [address] [address] [place] [address] Provider Referral: Nikko Petty MD Address: [address] [place] [address] [address] [place] [address] Discharge Note I have spoken with the [...] symptoms should prompt an immediate return to th is or the closest emergency department or a call to 911. at 1022 RPT #:[id number] END OF REPORT
--- NOTE | 2022-10-25 21:36 | RAD REPORT ---
EXAM DESCRIPTION: RAD - Chest Pa And Lat (2 Views) - 10/25/2022 9:20 pm CLINICAL HISTORY: COUGH COMPARISON: < 01/05/2022 TECHNIQUE: PA and lateral views of the chest were obtained. FINDINGS: The lungs are clear. Heart size is normal and central vasculature is within normal limits. No pleural effusion or pneumothorax seen. No acute bony finding noted. IMPRESSION: No acute cardiopulmonary process.
[2022-10-25 21:52] LABS: SARS-CoV-2 Antigen Rapid Res Negative (Negative)
--- NOTE | 2022-10-25 22:26 | ER ---
Nurse's Notes [facility] Name: Luis Fernando Smith Age: 22 yrs Sex: Male : 2000 Arrival Date: 10/25/2022 Time: 20:28 Bed IW2 Private MD: Diagnosis: Cough;Pain in throat Presentation: 10/25 20:53 Chief complaint: Patient states: he feels weird. patient states "the time goes by ap3 really fast, so something has to be wrong". Coronavirus screen: At this time, the client does not indicate any symptoms associated with coronavirus-19. Ebola Screen: No symptoms or risks identified at this time. Initial Sepsis Screen: Does the patient meet any 2 criteria? No. Patient's initial sepsis screen is negative. Does the patient have a suspected source of infection? No. Patient's initial sepsis screen is negative. Risk Assessment: Do you want to hurt yourself or someone else? Patient reports no desire to harm self or others. Onset of symptoms was October 25, 2022. 20:53 Method Of Arrival: EMS: [facility] ap3 20:53 Acuity: TATO 2 ap3 20:57 Note patient denies SI and HI at this time. ap3 20:59 Note patient states he feels like someone is touching him but there is no one there. ap3 Triage Assessment: 20:56 General: Appears in no apparent distress. Behavior is anxious. Pain: Denies pain. ap3 Neuro: Level of Consciousness is awake, alert, obeys commands, Oriented to person, place, time, situation. Cardiovascular: Patient's skin is warm and dry. Respiratory: Airway is patent Respiratory effort is even, unlabored, Respiratory pattern is regular, symmetrical. Historical: - Allergies: 20:55 NKDA; ap3 - PMHx: 20:55 Bipolar disorder; Schizophrenia; ap3 - Immunization history:: Client reports having NOT received the Covid vaccine. - Social history:: Smoking status: Patient reports the use of cigarette tobacco products, denies chronic smoking, but will smoke occasionally. Screenin:56 [facility] ED Fall Risk Assessment (Adult) History of falling in the last 3 months, ap3 including since admission No falls in past 3 months (0 pts). Abuse screen: Denies threats or abuse. Nutritional screening: No deficits noted. Tuberculosis screening: No symptoms or risk factors identified. Vital Signs: 20:53 Pulse 85; Resp 17; Temp 98.2; Pulse Ox 99% ; Weight 68.04 kg; ap3 ED Course: 20:33 Patient arrived in ED. ag3 20:55 Triage completed. ap3 20:55 Alexandro Brody DO is Attending Physician. ms3 20:56 Arm band placed on right wrist. ap3 20:58 ED physician to see patient. ap3 21:21 Chest Pa And Lat (2 Views) XRAY In Process Unspecified. EDMS 21:36 SARS RAPID Sent. ap3 22:25 Fili Swift DO is Referral Physician. ms3 22:37 No provider procedures requiring assistance completed. Patient did not have IV access ap3 during this emergency room visit. 22:49 Provided Education on: discharge instrutions. ap3 22:49 Patient has correct armband on for positive identification. ap3 Administered Medications: No medications were administered Medication: 22:50 VIS not applicable for this client. ap3 Outcome: 22:25 Discharge ordered by MD. ms3 22:37 Discharged to home ambulatory. ap3 22:37 Condition: good 22:37 Discharge instructions given to patient, Instructed on discharge instructions, follow up and referral plans. medication usage, Demonstrated understanding of instructions, follow-up care, medications, Prescriptions given X 1. 22:50 Patient left the ED. ap3 Signatures: Dispatcher [employer] EDMS Jaclyn Cárdenas RN RN ap3 Chhaya Cruz ag3 Alexandro Brody DO DO ms3
--- NOTE | 2022-10-25 22:26 | EDPHYS ---
Physician Documentation [facility] Name: Luis Fernando Smith Age: 22 yrs Sex: Male : 2000 Arrival Date: 10/25/2022 Time: 20:28 Bed IW2 Private MD: ED Physician Alexandro Brody HPI: 10/25 21:24 This 22 yrs old Male presents to ER via EMS with complaints of cough. ms3 21:24 22-year-old male with past medical history of bipolar, schizophrenia presents for cough ms3 and dry throat. Patient states he would like to be checked out. Patient also notes he has had fatigue and sleeps for days and feels as if people are touching him. Patient denies alleviating or inciting factors. Patient denies pain at this time. Patient denies nausea, vomiting, fevers, chills. Historical: - Allergies: 20:55 NKDA; ap3 - PMHx: 20:55 Bipolar disorder; Schizophrenia; ap3 - Immunization history:: Client reports having NOT received the Covid vaccine. - Social history:: Smoking status: Patient reports the use of cigarette tobacco products, denies chronic smoking, but will smoke occasionally. ROS: 21:24 Constitutional: Negative for fever, and chills. Neck: Negative for injury, pain, and ms3 swelling, Cardiovascular: Negative for chest pain, and palpitations. 21:24 Abdomen/GI: Negative for abdominal pain, nausea, vomiting, diarrhea, and constipation, MS/Extremity: Negative for injury and deformity, Skin: Negative for injury, rash, and discoloration, Neuro: Negative for headache, weakness, numbness, tingling. 21:24 Respiratory: Positive for cough. 21:24 All other systems are negative. Exam: 21:24 Constitutional: This is a well developed, well nourished patient who is awake, alert, ms3 and in no acute distress. Head/Face: Normocephalic, atraumatic. Neck: Trachea midline, no cervical lymphadenopathy. Supple, full range of motion without nuchal rigidity, or vertebral point tenderness. No Meningismus. Chest/axilla: Normal chest wall appearance and motion. Nontender with no deformity. Cardiovascular: Regular rate and rhythm with a normal S1 and S2. No gallops, murmurs, or rubs. Normal PMI, no JVD. No pulse deficits. Respiratory: Lungs have equal breath sounds bilaterally, clear to auscultation and percussion. No rales, rhonchi or wheezes noted. No increased work of breathing, no retractions or nasal flaring. Abdomen/GI: Soft, non-tender, with normal bowel sounds. No distension or tympany. No guarding or rebound. No evidence of tenderness throughout. Skin: Warm, dry with normal turgor. Normal color with no rashes, no lesions, and no evidence of cellulitis. MS/ Extremity: Pulses equal, no cyanosis. Neurovascular intact. Full, normal range of motion. Vital Signs: 20:53 Pulse 85; Resp 17; Temp 98.2; Pulse Ox 99% ; Weight 68.04 kg; ap3 MDM: 21:01 Patient medically screened. ms3 21:24 Differential Diagnosis: Bronchitis Upper Respiratory Infection Allergic Rhinitis Viral ms3 Syndrome. 22:25 Data reviewed: vital signs, nurses notes, lab test result(s), radiologic studies, plain ms3 films, and as a result, I will discharge patient. Independent interpretation of the following test(s) in the Emergency Department X-Ray: My interpretation is X-ray images reviewed by me do not reveal pneumonia. Counseling: I had a detailed discussion with the patient and/or guardian regarding the historical points, exam findings, and any diagnostic results supporting the discharge/admit diagnosis, lab results, radiology results, the need for outpatient follow up, to return to the emergency department if symptoms worsen or persist or if there are any questions or concerns that arise at home. Special discussion: I discussed with the patient/guardian in detail that at this point there is no indication for admission to the hospital. It is understood, however, that if the symptoms persist or worsen the patient needs to return immediately for re-evaluation. ED course: Discussed negative COVID, normal chest x-ray with patient. Patient to follow-up with Dr. Swift in 2 to 3 days. Patient understands and agrees with plan. All questions were answered. Return precautions discussed include worsening symptoms, or any other concerns. 10/25 21:01 Order name: SARS RAPID; Complete Time: 22:08 ms3 10/25 21:01 Order name: Chest Pa And Lat (2 Views) XRAY; Complete Time: 21:45 ms3 Administered Medications: No medications were administered Disposition Summary: 10/25/22 22:25 Discharge Ordered Location: Home ms3 Condition: Stable ms3 Diagnosis - Cough ms3 - Pain in throat ms3 Followup: ms3 - With: Fili Swift DO - When: 2 - 3 days - Reason: Recheck today's complaints Discharge Instructions: - Discharge Summary Sheet ms3 - Cough, Adult ms3 Forms: - Medication Reconciliation Form ms3 - Thank You Letter ms3 - Antibiotic Education ms3 - Prescription Opioid Use ms3 - Patient Portal Instructions ms3 - Leadership Thank You Letter ms3 Prescriptions: - Tessalon Perles 100 mg Oral Capsule - take 1 capsule by ORAL route every 8 hours As needed; 15 capsule; Refills: 0, ms3 Product Selection Permitted Signatures: Dispatcher [employer] Jaclyn Driscoll RN RN ap3 Alexandro Brody DO DO ms3
[2022-10-26 01:03] VITALS: TEMP 98.2; O2SAT 99
== END 2022-10-25 22:50 | disposition home or self-care (01) ==
LOC: ER 20:28
DX: R05.9 Cough, unspecified (principal); R07.0 Pain in throat; F17.210 Nicotine dependence, cigarettes, uncomplicated; Z20.822 Contact with and (suspected) exposure to COVID-19
CPT/HCPCS: 36415; 71046; 87811; 99283

== ENCOUNTER 2022-10-26 02:32 | Emergency (ER) | payer OTHER ==
--- OUTSIDE RECORDS SUMMARY | 2022-10-26 02:38 | XMS REPORT | Continuity of Care Document ---
:2000 Author Organization [facility] t Address [address] [place] [address] Care Team Providers Name Role Phone DARLEEN HOWARD Primary Care Physician Unavailable DR DARLEEN HOWARD Attending Clinician Unavailable [id number] Attending Clinician Unavailable [id number] Attending Clinician Unavailable Donald Lewis Attending Clinician Unavailable Arsen Bernard Attending Clinician Unavailable Sergio Shane Attending Clinician Unavailable Raphael Monge Attending Clinician Unavailable Noni Bai Attending Clinician Unavailable Diego Muñoz Attending Clinician Unavailable DR DARLEEN HOWARD Admitting Clinician Unavailable UNDEFINED Admitting Clinician Unavailable Payers Payer Name Policy Type Policy Number Effective Date Expiration Date [facility] [id number] [facility] [id number] CHOICE - Problems Condition Condition Condition Status Onset Resolution Last Treating Co mments Source Name Details Category Date Date Treatment Clinician Date Fractured Fractured Problem Active 2013-032017-09-02 [facility] nasal nasal - 15:05:38 l bones bones 00:00: Interior (disorder) (disorder) 00 Active 02/05/2014 Problem 09/02/2017 Data migrated from [employer] on 07/28/14. [facility] Gastroesop Problem Active 2017-09-02 M emoria hageal Gastroesop 15:05:38 l reflux hageal [place] disease reflux (disorder) disease (disorder) Active Problem 09/02/2017 Data migrated from [employer] on 07/28/14. [facility] Upper Upper Problem Resolve 2012-032017-09-02 2017-09-02 [facility] respirator respirator d 03-01 15:05:38 15:05:38 l y y 00:00: [place] infection infection 00 (disorder) (disorder) Resolved 12/30/2012 [...] No Known MA Active UNKNOWN [facility] Social History Smoking Status Start Date Stop Date Source Social History 2017-05-28 12:39:50 [facility] Medications This patient has no known medications. Immunizations Ordered Immunization Filled Immunization Date Status Commen ts Source Name Name meningococcal 2012-10-28 Completed [facility] conjugate 05:00:00 [facility] vaccine<sup>2</sup> diphtheria/pertussis, 2012-10-28 [facility] acel[facility]tetanus 05:00:00 [facility] adult<sup>1</sup> influenza virus 2012-10-28 Completed [facility] vaccine, live, 05:00:00 [facility] trivalent<sup>3</sup> meningococcal 2012-10-28 Completed [facility] conjugate 05:00:00 [facility] vaccine<sup>2</sup> influenza virus 2012-10-28 Completed [facility] vaccine, live, 05:00:00 [facility] trivalent<sup>3</sup> Hx influenza 2012-10-28 Completed [facility] vaccine-unspecified<s 05:00:00 Her hwakins up>4</sup> human papillomavirus 2012-10-28 Completed Vinay rial vaccine<sup>5</sup> 05:00:00 Miladys nn Hx influenza 2012-10-28 Completed [facility] vaccine-unspecified<s 05:00:00 Her hawkins up>4</sup> human papillomavirus 2012-10-28 Completed Vinay rial vaccine<sup>5</sup> 05:00:00 Miladys nn diphtheria/pertussis, 2012-10-28 Completed Mem orial acel/tetanus 05:00:00 [facility] adult<sup>1</sup> meningococcal 2012-10-28 Completed [facility] conjugate 05:00:00 [facility] vaccine<sup>2</sup> influenza virus 2012-10-28 Completed [facility] vaccine, live, 05:00:00 [place] trivalent<sup>3</sup> Hx influenza 2012-10-28 Completed [facility] vaccine-unspecified<s 05:00:00 Her hawkins up>4</sup> human papillomavirus 2012-10-28 Completed Vinay rial vaccine<sup>5</sup> 05:00:00 Miladys nn diphtheria/pertussis, 2012-10-28 Completed Mem orial acel/tetanus 05:00:00 [facility] adult<sup>1</sup> meningococcal 2012-10-28 Completed [facility] conjugate 05:00:00 [place] vaccine<sup>2</sup> influenza virus 2012-10-28 Completed [facility] vaccine, live, 05:00:00 [facility] trivalent<sup>3</sup> Hx influenza 2012-10-28 Completed [facility] vaccine-unspecified<s 05:00:00 Her hawkins up>4</sup> human papillomavirus 2012-10-28 Completed Vinay rial vaccine<sup>5</sup> 05:00:00 Miladys nn diphtheria/pertussis, 2012-10-28 Completed Mem orial acel/tetanus 05:00:00 [place] adult<sup>1</sup> meningococcal 2012-10-28 Completed [facility] conjugate 05:00:00 [place] vaccine<sup>2</sup> influenza virus 2012-10-28 Completed [facility] vaccine, live, 05:00:00 [facility] trivalent<sup>3</sup> Hx influenza 2012-10-28 Completed [facility] vaccine-unspecified<s 05:00:00 Her hawkins up>4</sup> human papillomavirus 2012-10-28 Completed Vinay rial vaccine<sup>5</sup> 05:00:00 Miladys nn diphtheria/pertussis, 2012-10-28 Completed Mem orial acel/tetanus 05:00:00 Interior adult<sup>1</sup> meningococcal 2012-10-28 Completed [facility] conjugate 05:00:00 [facility] vaccine<sup>2</sup> influenza virus 2012-10-28 Completed [facility] vaccine, [...] diphtheria/pertussis, 2012-10-28 Completed Mem orial acel/tetanus 05:00:00 [facility] adult<sup>1</sup> meningococcal 2012-10-28 Completed [facility] conjugate 05:00:00 [facility] vaccine<sup>2</sup> influenza virus 2012-10-28 Completed [facility] vaccine, live, 05:00:00 [place] trivalent<sup>3</sup> Hx influenza 2012-10-28 Completed [facility] vaccine-unspecified<s 05:00:00 Her hawkins up>4</sup> human papillomavirus 2012-10-28 Completed Vinay rial vaccine<sup>5</sup> 05:00:00 Miladys nn diphtheria/pertussis, 2012-10-28 Completed Mem orial acel/tetanus 05:00:00 [facility] adult<sup>1</sup> meningococcal 2012-10-28 Completed [facility] conjugate 05:00:00 [...] virus 2012-10-28 Completed [facility] vaccine, live, 05:00:00 [facility] trivalent<sup>3</sup> Hx influenza 2012-10-28 Completed [facility] vaccine-unspecified<s [...] Completed Mem orial acel/tetanus 05:00:00 [place] adult<sup>1</sup> pneumococcal 2011-01-26 Completed [facility] vaccine<sup>6</sup> 18:29:21 Miladys nn pneumococcal 2011-01-26 Completed [facility] vaccine<sup>6</sup> 18:29:21 Miladys nn pneumococcal 2011-01-26 Completed [facility] vaccine<sup>6</sup> 18:29:21 Miladys nn pneumococcal 2011-01-26 Completed [facility] vaccine<sup>6</sup> 18:29:21 Miladys nn pneumococcal 2011-01-26 Completed [facility] vaccine<sup>6</sup> 18:29:21 Miladys nn pneumococcal 2011-01-26 Completed [facility]<sup>6</sup> [facility]:29[facility] vaccine<sup>6</sup> 18:29:21 Miladys nn pneumococcal 2011-01-26 Completed [facility] vaccine<sup>6</sup> 18:29:21 Miladys nn pneumococcal 2011-01-26 Completed [facility] vaccine<sup>6</sup> 18:29:[facility]26 Com[facility] vaccine<sup>6</sup> 18:29:[facility] 2011-01-26 Completed [facility] vaccine<sup>6</sup> 18:29:21 Miladys [...] measles/mumps/rubella 2003-01-15 Completed Mem orial virus 18:25:17 Interior vaccine<sup>18</sup> Hx diphth/pertussis, 2003-01-15 Completed Vinay rial acellular/tetanus<sup 18:25:17 Her hawkins >20</sup> Hx poliovirus 2003-01-15 Completed [facility] vaccine-unspecified<s 18:25:17 Her hawkins up>14</sup> Hx poliovirus 2003-01-15 Completed [facility] vaccine-unspecified<s 18:25:17 Her hawkins up>14</sup> measles/mumps/rubella 2003-01-15 Completed Mem orial virus 18:25:17 Interior vaccine<sup>18</sup> Hx diphth/pertussis, 2003-01-15 Completed Vinay rial acellular/tetanus<sup 18:25:17 Her hawkins >20</sup> measles/mumps/rubella 2003-01-15 Completed Mem orial virus 18:25:17 Interior vaccine<sup>18</sup> Hx diphth/pertussis, 2003-01-15 Completed Vinay rial acellular/tetanus<sup 18:25:17 Her hawkins >20</sup> Hx poliovirus 2003-01-15 Completed [facility] vaccine-unspecified<s 18:25:17 Her hawkins up>14</sup> measles/mumps/rubella 2003-01-15 Completed Mem orial virus 18:25:17 Interior vaccine<sup>18</sup> Hx diphth/pertussis, 2003-01-15 Completed Vinay rial acellular/tetanus<sup 18:25:17 Her hawkins >20</sup> Hx poliovirus 2003-01-15 Completed [facility] vaccine-unspecified<s 18:25:17 Her hawkins up>14</sup> measles/mumps/rubella 2003-01-15 Completed Mem orial virus 18:25:17 Interior vaccine<sup>18</sup> Hx diphth/pertussis, 2003-01-15 Completed Vinay rial acellular/tetanus<sup 18:25:17 Her hawkins >20</sup> Hx poliovirus 2003-01-15 Completed [facility] vaccine-unspecified<s 18:25:17 Her hawkins up>14</sup> measles/mumps/rubella 2003-01-15 Completed Mem orial virus 18:25:17 Interior vaccine<sup>18</sup> Hx diphth/pertussis, 2003-01-15 Completed Vinay rial acellular/tetanus<sup 18:25:17 Her hawkins >20</sup> Hx poliovirus 2003-01-15 Completed [facility] vaccine-unspecified<s 18:25:17 Her hawkins up>14</sup> measles/mumps/rubella 2003-01-15 Completed Mem orial virus 18:25:17 Interior vaccine<sup>18</sup> Hx diphth/pertussis, 2003-01-15 Completed Vinay rial acellular/tetanus<sup 18:25:17 Her hawkins >20</sup> Hx poliovirus 2003-01-15 Completed [facility] vaccine-unspecified<s 18:25:17 Her hawkins up>14</sup> measles/mumps/rubella 2003-01-15 Completed Mem orial virus 18:25:17 Interior vaccine<sup>18</sup> Hx diphth/pertussis, 2003-01-15 Completed Vinay rial acellular/tetanus<sup 18:25:17 Her hawkins >20</sup> Hx poliovirus 2003-01-15 Completed [facility] vaccine-unspecified<s 18:25:17 Her hawkins up>14</sup> measles/mumps/rubella 2003-01-15 Completed Mem orial virus 18:25:17 [place] vaccine<sup>18</sup> Hx diphth/pertussis, 2003-01-15 Completed Vinay rial acellular/tetanus<sup 18:25:17 Her hawkins >20</sup> Hx poliovirus 2003-01-15 Completed [facility] vaccine-unspecified<s 18:25:17 Her hawkins up>14</sup> measles/mumps/rubella 2003-01-15 Completed Mem orial virus 18:25:17 Interior vaccine<sup>18</sup> Hx diphth/pertussis, 2003-01-15 Completed Vinay rial [...] measles/mumps/rubella 2000-01-14 Completed Mem orial virus 18:25:17 Interior vaccine<sup>19</sup> Hx pneumococcal 2000-01-14 Completed [facility] vaccine<sup>7</sup> 18:25:17 Miladys nn varicella virus 2000-01-14 Completed [facility] vaccine<sup>11</sup> 18:25:17 Herm evelyne measles/mumps/rubella 2000-01-14 Completed Mem orial virus 18:25:17 Interior vaccine<sup>19</sup> Hx pneumococcal 2000-01-14 Completed [facility] vaccine<sup>7</sup> 18:25:17 Miladys nn varicella virus 2000-01-14 Completed [facility] vaccine<sup>11</sup> 18:25:17 Herm evelyne measles/mumps/rubella 2000-01-14 Completed Mem orial virus 18:25:17 Interior vaccine<sup>19</sup> Hx pneumococcal 2000-01-14 Completed [facility] vaccine<sup>7</sup> 18:25:17 Miladys nn varicella virus 2000-01-14 Completed [facility] vaccine<sup>11</sup> 18:25:17 Herm evelyne measles/mumps/rubella 2000-01-14 Completed Mem orial virus 18:25:17 Interior vaccine<sup>19</sup> Hx pneumococcal 2000-01-14 Completed [facility] vaccine<sup>7</sup> 18:25:17 Miladys nn varicella virus 2000-01-14 Completed [facility] vaccine<sup>11</sup> 18:25:17 Herm evelyne varicella virus 2000-01-14 Completed [facility] vaccine<sup>11</sup> 18:25:17 Herm evelyne measles/mumps/rubella 2000-01-14 Completed Mem orial virus 18:25:17 [place] vaccine<sup>19</sup> Hx pneumococcal 2000-01-14 Completed [facility] vaccine<sup>7</sup> 18:25:17 Miladys nn measles/mumps/rubella 2000-01-14 Completed Mem orial virus 18:25:17 Interior vaccine<sup>19</sup> Hx pneumococcal 2000-01-14 Completed [facility] vaccine<sup>7</sup> 18:25:17 Miladys nn varicella virus 2000-01-14 Completed [facility] vaccine<sup>11</sup> 18:25:17 Herm evelyne measles/mumps/rubella 2000-01-14 Completed Mem orial virus 18:25:17 [place] vaccine<sup>19</sup> Hx pneumococcal 2000-01-14 Completed [facility] vaccine<sup>7</sup> 18:25:17 Miladys nn varicella virus 2000-01-14 Completed [facility] vaccine<sup>11</sup> 18:25:17 Herm evelyne measles/mumps/rubella 2000-01-14 Completed Mem orial virus 18:25:17 Interior vaccine<sup>19</sup> Hx pneumococcal 2000-01-14 Completed [facility] vaccine<sup>7</sup> 18:25:17 Miladys nn varicella virus 2000-01-14 Completed [facility] vaccine<sup>11</sup> 18:25:17 Herm evelyne measles/mumps/rubella 2000-01-14 Completed Mem orial virus 18:25:17 Interior vaccine<sup>19</sup> Hx pneumococcal 2000-01-14 Completed [facility] vaccine<sup>7</sup> 18:25:17 Miladys nn varicella virus 2000-01-14 Completed [facility] vaccine<sup>11</sup> 18:25:17 Herm evelyne measles/mumps/rubella 2000-01-14 Completed Mem orial virus 18:25:17 Interior vaccine<sup>19</sup> Hx pneumococcal 2000-01-14 Completed [facility] vaccine<sup>7</sup> 18:25:17 Miladys nn varicella virus 2000-01-14 Completed [facility] vaccine<sup>11</sup> 18:25:17 Herm evelyne measles/mumps/rubella 2000-01-14 Completed Mem orial virus 18:25:17 Interior vaccine<sup>19</sup> Hx pneumococcal 2000-01-14 Completed [facility] vaccine<sup>7</sup> 18:25:17 Miladys nn Hx pneumococcal 1999 Completed [facility] vaccine<sup>8</sup> 17:25:17 Miladys nn Hx pneumococcal 1999 Completed [facility] vaccine<sup>8</sup> 17:25:17 Miladys nn Hx pneumococcal 1999 Completed [facility] vaccine<sup>8</sup> 17:25:17 Miladys nn Hx pneumococcal 1999 Completed [facility] vaccine<sup>8</sup> 17:25:17 Miladys nn Hx pneumococcal 1999 Completed [facility] vaccine<sup>8</sup> 17:25:17 Miladys nn pneumococcal 1999 Completed [facility] vaccine<sup>8</sup> 17:25:17 Miladys nn pneumococcal 1999 Completed [facility] vaccine<sup>8</sup> 17:25:17 Miladys nn pneumococcal 1999 Completed [facility] vaccine<sup>8</sup> 17:25:17 Miladys nn pneumococcal 1999 Completed [facility] vaccine<sup>8</sup> 17:25:17 Miladys nn pneumococcal 1999 Completed [facility] vaccine<sup>8</sup> 17:25:17 Miladys nn pneumococcal 1999 Completed [facility] vaccine<sup>8</sup> 17:25:17 Miladys nn pneumococcal 1999 Completed [facility] vaccine<sup>9</sup> 17:25:17 Miladys [...] Completed [facility] vaccine<sup>30</sup> 17:25:17 Herm evelyne Hx poliovirus 1999 Completed [facility] vaccine-unspecified<s 17:25:17 Her hawkins up>16</sup> Hx diphth/pertussis, 1999 Completed Vinay rial acellular/tetanus<sup 17:25:17 Her hawkins >23</sup> Hx haemophilus b 1999 Completed [facility] vaccine<sup>30</sup> [...] Brannon Height 2017-05-28 12:34:00 163.83 cm Katie Weir Weight 2017-05-28 12:34:00 Katie Weir BMI Calculated 2017-05-28 12:34:00 Nader Brannon Systolic (mm Hg) 2017-05-28 12:34:00 [facility] [place] Diastolic (mm Hg) 2017-05-28 12:34:00 [facility] Heart Rate 2017-05-28 12:34:00 [facility] Procedures This patient has no known procedures. Encounters Start End Encounter Admission Attending Care Care Encounter Source Date/Time Date/Time Type Type Clinicians Facility Department ID 2022-02-10 Inpatient TEXANA TEXBERENICE [id number] [place] 10:01:09 [id number] [place] 2022-01-07 Outpatient BACCHRISTIAN DARLEEN ELCAMPO ELCAMPO [id number] [place] 16:21:38 [id number] [place] [id number] 2022-01-06 Inpatient TEXANA TEXANA [id number] [place] 15:24:26 [id number] [place] 2022-01-01 Outpatient ELCAMPO ELCAMPO [id number] [place] 16:22:26 [id number] [facility] 2022-01-01 Inpatient TEXANA TEXANA [id number] [place] 09:02:34 [id number] [place] 2021-12-31 Inpatient TEXANA TEXANA [id number] [place] 09:58:20 [id number] [place] 2021-10-25 Outpatient ELCAMPO ELCAMPO [id number] [place] 10:24:07 [id number] [facility] 2022-08-12 2022-08-12 Emergency EM Masters-Yaneli [facility] ER [id number] [facility] 13:01:00 14:20:00 Donald newman [facility] 2022-08-02 2022-08-02 Emergency EM Bernard, [facility] ER [id number] [facility] 17:35:00 19:15:00 Arsen 01 [facility] 2022-07-22 2022-07-22 Emergency EM Acosta, [facility] ER [id number] [facility] 13:22:00 23:04:00 Sergio 69 [facility] 2022-07-21 2022-07-22 Emergency EM Saleem, [facility] ER [id number] [facility] 19:06:00 07:56:00 Lim 60 [facility] 2022-07-19 2022-07-19 Emergency EL Deliz [facility] ER [id number] [facility] 11:29:00 13:32:00 Estevan, 21 [facility] 2022-07-18 2022-07-19 Emergency EM Diego Muñoz [facility] ER [id number] [facility] 21:21:00 11:36:00 64 [facility] 2022-01-08 2022-01-08 Outpatient DARLEEN MAXWELLCAMPO [facility] [id number] [place] 16:23:00 16:23:00 [id number] [place] [id number] [facility] 2022-01-01 2022-01-01 Outpatient DARLEEN MAXWELL ELCAMPO [facility] [id number] [place] 16:23:00 21:20:00 [id number] [place] [id number] [facility] 2021-10-27 2021-10-27 Outpatient DARLEEN MAXWELL ELCAMPO [facility] [id number] [place] 10:24:00 10:24:00 [id number] [place] [id number] [facility] 2017-05-27 2017-05-28 Outpatient nullFlavo [facility] [id number] [facility] 19:45:00 04:59:59 r Medicine [place] 02 [place] 2017-05-27 2017-05-28 Outpatient nullFlavo [facility] [id number] [facility] 19:45:00 04:59:59 r Medicine [place] 02 [place] 2017-05-27 2017-05-27 Outpatient MHMG [facility] [id number] 14:45:00 23:59:59 02 2017-05-27 2017-05-27 Outpatient MHIE MHIE [id number] [facility] 14:45:00 14:45:00 02 nereida Weir 2016-05-08 2016-05-08 Outpatient MHIE MHIE [id number] [facility] 13:30:00 13:30:00 01 enreida Weir 2016-05-08 2016-05-08 Outpatient MHIE MHIE [id number] [facility] 13:30:00 13:30:00 01 nereida Weir [...] the annita mmended formula for GFRby the [facility] Kidney Foundation for Adults.The GFR will [...] Units/L 50-136 N (test code = ALKP) [id number] 13:49:00 Test Item Value Reference Range Interpretation Comments ACETAMINOPHEN (test < 1 MCG/ML 10-30 L Acetamin judy is code = ACET) possibly toxic at levels of: 1. m ore than 150 MCG/ML 4 hours post catie stion. 2. more than 50 MCG/ML 12 hours post ingestion. [id number] 13:49:00 Test Item Value Reference Range Interpretation Comments SALICYLATE (test code = < 3 MG/DL 0-20 N Refe rence Range: CODY) Analgesic...... ...... ...... < 10 mg/ dl Therapeutic.... ...... ...... 15-20 mg /dl Mild Toxicity....... ...... . > 30 mg/dl Se destiney Toxicity....... ..... > 60 mg/dl [id number] 13:49:00 Test Item Value Reference Range Interpretation [...] emp loyment evaluative purp oses. CBC W/AUTO [id number] 13:32:00 Test Item Value Reference Range Interpretation [...] 3/uL 0.0-0.2 N - XR CHEST 1 [id number] 18:51:00 [facility] 2000 Sex: M Patient Name: VIVIENNE CAMACHO Unit No: [id number] EXAMS: CPT CODE: [id number] XR CHEST 1 V [id number] Reason: altered mental status EXAM: Chest one view. Location: H24 HISTORY: altered mental status COMPARISON: 07/19/2022 FINDINGS: The lungs are free of focal airspace consolidations.. There are no pleural effusions or pneumothorax. The aorta, pulmonary vasculature and mediastinum are within normal limits. Cardi ac silhouette is normal in size and contour. Visualized skeletal structures are unremarkable. IMPRESSION: No active disease in the chest. at 1851 Reported and signed by: Jere Silvestre MD CC: Sergio Shane MD Technologist: KEISHA Rhodes Trscrpt Dt/ (1850)[email or web address] Orig Print D/T: S: 08/02/2022 (1853) [place] FSED NAME: VIVIENNE CAMACHO [id number] [facility] PHYS: [place] [address] : 2000 AGE: 22 SEX: M LOC: D.NER PHONE #: [phone] EXAM DATE: 08/02/2022 STATUS: PRE ER FAX #: RAD NO: DC Dt: PAGE 1 Signed ReportBASIC METABOLIC [id number] 18:31:00 Test Item Value Reference Range Interpretation [...] the recommended for bello for GFRby the [facility] on for Adults.The GFR will not calculate if th e sex is unknown or if thepatient's ag e is <18 years. CREATININE (test 0.87 MG/DL 0.60-1.00 N code = CREAT) CALCIUM (test code = 9.2 MG/DL 8.7-10.5 N CA) HEPATIC FUNCTION [id number] 18:31:00 Test Item Value Reference Range Interpretation [...] MG/DL 0.0-0.7 N (test code = BILIND) [id number] 18:31:00 Test Item Value Reference Range Interpretation Comments CK (test code = CKT) 226 Units/L 39-308 N TROP-I HIGH [id number] 18:31:00 Test Item Value Reference Range Interpretation [...] atient is taking high doses of Biotin. [id number] 18:31:00 Test Item Value Reference Range Interpretation Comments ACETAMINOPHEN (test < 1 MCG/ML 10-30 L Acetamin ophen is code = ACET) possibly toxic at levels of: 1. m ore than 150 MCG/ML 4 hours post catie stion. 2. more than 50 MCG/ML 12 hours post ingestion. [id number] 18:31:00 Test Item Value Reference Range Interpretation Comments SALICYLATE (test code = < 3 MG/DL 0-20 N Refe rence Range: CODY) Analgesic...... ...... ...... < 10 mg/ dl Therapeutic.... ...... ...... 15-20 mg /dl Mild Toxicity....... ...... . > 30 mg/dl Se destiney Toxicity....... ..... > 60 mg/dl [id number] 18:31:00 Test Item Value Reference Range Interpretation [...] evaluative purp oses. DRUG OF ABUSE SCREEN [id number] 18:26:00 Test Item Value Reference Interpretation Comments [...] by norah avila methods (i.e., GC/MS) at [facility]. Results of scre en may not be usedin crimi nal justice, job performance or professionalcre dential review, or infa nt custody issues. Negativ e [place] Level ng/ml ------- ----- Cocaine 3 00 Methamphetamine (Ecstacy) 500 Cannabinoid s (THC) 50 Amphetamine 100 0 Barbiturates 20 0 Benzodiazepines 200 Opiates 300 Phencyclidi ne (PCP) 25 UA RFLX MICROSCOPIC [id number] 18:24:00 Test Item Value Reference Range Interpretation [...] RiskForSepsis-no oth srcURINE SOURCE: Clean CatchCBC W/AUTO [id number] 18:23:00 Test Item Value Reference Range Interpretation [...] 0.05 x10 3/uL 0.0-0.2 N UA RFLX [id number] 16:52:00 Test Item Value Reference Range Interpretation [...] Catch (test code = UASPEC) COMPREHENSIVE METABOLIC [id number] 16:29:00 Test Item Value Reference Range Interpretation [...] TOTAL (test code = ALKP) THYROID STIMULATING [id number] 16:29:00 Test Item Value Reference Range Interpretation Comments THYROID STIMULATING 0.62 0.42-5.47 N Micro-In ternational HORMONE (test code = TSH) Un its/LResults of this assay method ma y be falsely depress ed orelevated if p atient is taking high doses of Biotin. [id number] 16:29:00 Test Item Value Reference Range Interpretation Comments CK (test code = CKT) 59 Units/L 39-308 N [id number] 16:29:00 Test Item Value Reference Range Interpretation Comments ACETAMINOPHEN (test < 1 MCG/ML 10-30 L Acetamin ophen is code = ACET) possibly toxic at levels of: 1. m ore than 150 MCG/ML 4 hours post catie stion. 2. more than 50 MCG/ML 12 hours post ingestion. [id number] 16:29:00 Test Item Value Reference Range Interpretation [...] emp loyment evaluative purp oses. CBC W/AUTO [id number] 16:09:00 Test Item Value Reference Range Interpretation [...] X10 3/uL 0.0-0.2 N NRBC#) UA RFLX [id number] 20:58:00 Test Item Value Reference Range Interpretation [...] DIPSTICK (test 5.0 5.5-7.0 L code = MLYES) UA PROTEIN DIPSTICK 25 mg/dL NEGATIVE A (test code = PROU) UA UROBILINOGEN 4.0 mg/dL NORMAL A DIPSTICK (test code = URO) UA NITRITE DIPSTICK NEGATIVE NEGATIVE (test code = YESSENIA) UA LEUKOCYTE 25 NEGATIVE A ESTERASE DIPSTICK (test code = LEUU) UA COMMENT (test VOLUME 10-12 ML code = COMU) URINE SPECIMEN Clean Catch DESCRIPTION (test code = UASPEC) UA [id number] 20:58:00 Test Item Value Reference Range Interpretation [...] code = AMORU) DRUG OF ABUSE SCREEN [id number] 20:58:00 Test Item Value Reference Interpretation Comments [...] by norah avila methods (i.e., GC/MS) at [facility]. Results of scre en may not be usedin crimi nal justice, job performance or professionalcre dential review, or infa nt custody issues. Negativ e [place] Level ng/ml ------- ----- Cocaine 3 00 Methamphetamine (Ecstacy) 500 Cannabinoid s (THC) 50 Amphetamine 100 0 Barbiturates 20 0 Benzodiazepines 200 Opiates 300 Phe ncyclidine (PCP) 25 Coronavirus 2019 nCoV [id number] 20:34:00 Test Item Value Reference Range Interpretation Comments Coronavirus 2019 Negative Negative ID NOW COVI D-19 assay nCoV Bedside (test performed on the ID NOW code = [id number]) Instrum ent ulysses rapid molecular in vi tro diagnostic test utilizing anisothermal nu cleic acid amplification t echnology intendedfor the qualitative det ection of nucleic acid fr om [id number] v iral RNA in direct nasal , [...] , and epidemiological informatio n. COMPREHENSIVE METABOLIC [id number] 20:18:00 Test Item Value Reference Range Interpretation [...] 50-136 N TOTAL (test code = ALKP) [id number] 20:18:00 Test Item Value Reference Range Interpretation Comments CK (test code = CKT) 85 Units/L 39-308 N [id number] 20:18:00 Test Item Value Reference Range Interpretation Comments ACETAMINOPHEN (test < 1 MCG/ML 10-30 L Acetamin ophen is code = ACET) possibly toxic at levels of: 1. m ore than 150 MCG/ML 4 hours post catie stion. 2. more than 50 MCG/ML 12 hours post ingestion. [id number] 20:18:00 Test Item Value Reference Range Interpretation Comments SALICYLATE (test code = 4 MG/DL 0-20 N Refe rence Range: CODY) Analgesic...... ....... ..... < 10 mg/d l Therapeutic.... ....... ..... 15-20 mg/ dl Mild Toxicity....... ....... > 30 mg/dl Maria Teresa re Toxicity....... ..... > 60 mg/dl [id number] 20:18:00 Test Item Value Reference Range Interpretation [...] emp loyment evaluative purp oses. CBC W/AUTO [id number] 20:10:00 Test Item Value Reference Range Interpretation [...] 0.05 x10 3/uL 0.0-0.2 N COMPREHENSIVE METABOLIC [id number] 14:17:00 Test Item Value Reference Range Interpretation [...] TOTAL (test code = ALKP) TROP-I HIGH [id number] 14:17:00 Test Item Value Reference Range Interpretation [...] atient is taking high doses of Biotin. [id number] 12:51:00 Test Item Value Reference Range Interpretation [...] emp loyment evaluative purp oses. UA RFLX [id number] 12:28:00 Test Item Value Reference Range Interpretation [...] Catch (test code = UASPEC) CBC W/AUTO [id number] 12:25:00 Test Item Value Reference Range Interpretation [...] 0.0-0.2 N NRBC#) - XR CHEST 1 [id number] 12:07:00 [facility] : 2000 Sex: M Patient Name: VIVIENNE CAMACHO Unit No: [id number] EXAMS: CPT CODE: [id number] XR CHEST 1 V 91043 Reason: syncope EXAM: - XR CHEST 1 V HISTORY: Syncope. COMPARISON: None available time of interpretation. FINDINGS: Single AP view of the chest is provided. Heart size and vascularity are within normal limits. There is no evidence of a focal consolidation. There is no pleural effusion or pneumothorax. There is no definite acute osseous abnormality. IMPRESSION: No radiographic evidence of acute cardiopulmonary process. at 1207 Reported andsigned by: Ravi Caceres MD CC: Noni Barreto MD; Corky FARRELL Technologist: Nadine Shane, RT Trscrpt Dt/ (1207)[id number] Orig Print D/T: S: 07/19/2022(0981) [facility] Doctors NAME: VIVIENNE CAMACHO [address] PHYS: Noni [facility] [place] [address] : 2000 AGE: 22 SEX: M LOC: [facility] PHONE #: [phone] EXAM DATE: 07/19/2022 STATUS: REG ER FAX #: RAD NO: DC Dt: PAGE 1 Signed [id number] 03:48:00 Test Item Value Reference Range Interpretation Comments CK (test code = CKT) 111 Units/L 39-308 N [id number] 03:48:00 Test Item Value Reference Range Interpretation [...] emp loyment evaluative purp oses. UA RFLX [id number] 22:42:00 Test Item Value Reference Range Interpretation [...] Catch DESCRIPTION (test code = UASPEC) UA [id number] 22:42:00 Test Item Value Reference Range Interpretation [...] A code = FINEU) Coronavirus 2019 nCoV [id number] 22:22:00 Test Item Value Reference Range Interpretation Comments Coronavirus 2019 Negative Negative ID NOW COVI D-19 assay nCoV Bedside (test performed on the ID NOW code = [id number]) Instrum ent ulysses rapid molecular in vi tro diagnostic test utilizing anisothermal nu cleic acid amplification t echnology intendedfor the qualitative det ection of nucleic acid fr om [id number] v iral RNA in direct nasal , [...] , and epidemiological informatio n. COMPREHENSIVE METABOLIC [id number] 22:21:00 Test Item Value Reference Range Interpretation [...] 50-136 N TOTAL (test code = ALKP) [id number] 22:21:00 Test Item Value Reference Range Interpretation Comments ACETAMINOPHEN (test < 1 MCG/ML 10-30 L Acetamin ophen is code = ACET) possibly toxic at levels of: 1. m ore than 150 MCG/ML 4 hours post catie stion. 2. more than 50 MCG/ML 12 hours post ingestion. [id number] 22:21:00 Test Item Value Reference Range Interpretation Comments SALICYLATE (test code = 5 MG/DL 0-20 N Refe rence Range: CODY) Analgesic...... ....... ..... < 10 mg/d l Therapeutic.... ....... ..... 15-20 mg/ dl Mild Toxicity....... ....... > 30 mg/dl Maria Teresa re Toxicity....... ..... > 60 mg/dl DRUG OF ABUSE SCREEN [id number] 22:12:00 Test Item Value Reference Interpretation Comments [...] by norah avila methods (i.e., GC/MS) at [facility]. Results of scre en may not be usedin crimi nal justice, job performance or professionalcre dential review, or infa nt custody issues. Negati ve [place] Level ng/ml ------- ----- Cocaine 3 00 Methamphetamine (Ecstacy) 500 Cannabinoid s (THC) 50 Amphetamine 100 0 Barbiturates 2 00 Benzodiazepines 200 Opiates 300 Phencyclidi ne (PCP) 25 CBC W/AUTO [id number] 22:05:00 Test Item Value Reference Range Interpretation [...] Notes Date/Time Note Provider Source 2022-08-02 17:39:00-00:00 [facility] ([facility]) OR A CAMPUS OF [facility] EMERGENCY PROVIDER REPORT REPORT#:[id number] REPORT STATUS: Signed DATE:08/02/22 TIME: 1738 PATIENT: VIVIENNE CAMACHO UNIT #: [id number] ROOM/BED: AGE: 22 SEX: M PCP PHYS: No Primary or Family Ph ysician SERVICE AUTHOR: Sergio Shane * ALL edits or amendments must be made on the [employer]/computer document * Sergio Shane 08/02/221738: HPI-General Illness [...] No Known Home Medications Referrals Provider Group: [facility] Address: [address] [place] [address]. [place] [address] Arsen Bernard 08/02/22 1912: Physical Exam Vital Signs Vital Signs First Documented: Result Date Time Pulse Ox 96 08/02 1736 B/P 142/65 / 1736 B/P Mean 90 / 1736 O2 Delivery Room air 08/02 1736 Temp 36.8 08/02 1736 Pulse 85 / 1736 Resp 18 08/02 1736 Last Documented: Result Date Time Pulse Ox 96 08/02 1736 B/P 142/65 08/02 1736 B/P Mean 90 08/02 1736 O2 Delivery Room air 08/02 1736 Temp 36.8 06/ 1736 Pulse 85 06/ 1736 Resp 18 08/02 1736 Interpretation Diagnostics Lab Results Interpretation Results Laboratory Tests 08/02/22 1759: [Embedded Image Not Available] Laboratory Tests: 08/02 08/02 1759 1744 Chemistry Sodium (133 - 145 MMOL/L) [...] % (Auto) (24 - 44 %) 24.1 [place] % (Auto) (0.0 - 4.0 %) 7.6 [...] pH (5.5 - 7.0) 6.0 Ur Specific [place] (1.001 - 1.035) 1.010 Urine Protein (NEGATIVE [...] RADIOLOGY - XR CHEST 1 V 08/02 1845 Report Impression - Status: SIGNED Entered: 08/02/2022 185 IMPRESSION: No active disease in the chest. [...] states they "[facility] on labs, patient has elevated alcohol level He adamantly denies SI/HI and states he just wan ts to sleep. When offered psych eval, he refused and stated mendel parry just wishes to go home. He is [...] B/P 142/65 06/04 1736 B/P Mean 90 06/04 1736 O2 Delivery Room air 06/04 1736 Temp 36.8 06/04 1736 Pulse 85 06/04 1736 Resp 18 06/04 1736 Last Documented: Result Date Time Pulse Ox 96 06/04 1736 B/P 142/65 06/04 1736 B/P Mean 90 06/04 1736 O2 Delivery Room air 06/04 1736 Temp 36.8 06/04 1736 Pulse 85 06/04 1736 Resp 18 06/04 1736 All vital signs available at the [...] symptoms should prompt an immediate return to [facility] or the closest emergency department or a call to 911. 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 Recent hospitalization, Recent testing, [...] Medical History - Adult Stated Complaint CHEST [id number] Allergies Coded Allergies: No Known Allergies (07/18/22) [...] % (Auto) (24 - 44 %) 30.4 [place] % (Auto) (0.0 - 4.0 %) 11.6 [...] pH (5.5 - 7.0) 6.0 Ur Specific [place] (1.001 - 1.035) 1.014 Urine Protein (NEGATIVE [...] 07/19 1147 O2 Delivery Room air 07/19 114 Temp 98.1 07/19 1147 Pulse 80 07/19 [...] e Referrals Provider Referral: Car Bradley Address: [address] [place] [address] Provider Referral: Beatriz Chen Address: [address] [place] [address] Provider Referral: Nikko Petty MD Address: [address] [place] [address] Discharge Note I have spoken with the [...] symptoms should prompt an immediate return to [facility] or the closest emergency department or a call to 911. at 1022 RPT #:[id number] END OF REPORT
[2022-10-26] MEDS ORDERED: LORazepam 2 MG/ML VIAL ONE (03:55)
[2022-10-26 04:24] LABS: Barbiturates NEGATIVE (NEGATIVE); Benzodiazepines NEGATIVE (NEGATIVE); Cocaine NEGATIVE (NEGATIVE); METHAMPHETAM NEGATIVE (NEGATIVE); Methadone NEGATIVE (NEGATIVE); Opiates NEGATIVE (NEGATIVE); Phencyclidine NEGATIVE (NEGATIVE); THC Cannibis NEGATIVE (NEGATIVE)
[2022-10-26 04:24] LABS: ALT/SGPT 21 U/L (16-61); AST/SGOT 11 U/L (15-37); Albumin 3.9 g/dL (3.4-5.0); Alkaline Phosphatase 75 U/L (45-117); BUN Blood Urea Nitrogen 10 mg/dL (7-18); Bicarbonate 28 mEq/L (21-32); Bilirubin Direct 0.1 mg/dL (0-0.2); Bilirubin Indirect, Calculated 0.3 mg/dL (0.2-0.8); Bilirubin Total 0.4 mg/dL (0.2-1.0); Glomerular Filtration Rate 129 ml/min (=/>90); Glucose Level 92 mg/dL (74-106); Potassium 3.4 mEq/L (3.5-5.1); Sodium Level 137 mEq/L (136-145)
[2022-10-26 04:50] LABS: Absolute Lymphocytes (CBC) 3.1 K/uL (0.7-4.9); Hematocrit 39.2 % (39.6-49.0); Lymphocytes % 39.1 % (15.3-44.8); MCV 87.7 fL (80-100); MPV 8.7 fL (7.6-11.3); Platelets 217 thou/uL (152-406); RBC Red Blood Cell Count 4.47 M/uL (4.33-5.43)
[2022-10-26 04:52] LABS: Protime INR 1.11
--- NOTE | 2022-10-26 05:12 | EDPHYS ---
Physician Documentation [facility] Name: Luis Fernando Smith Age: 22 yrs Sex: Male : 2000 Arrival Date: 10/26/2022 Time: 02:32 Bed 19 Private MD: ED Physician Alexandro Brody HPI: 10/26 02:37 This 22 yrs old Male presents to ER via Unassigned with complaints of time ms3 going too fast. 02:37 22-year-old male presents via [facility] for not feeling right. Patient states he ms3 feels as time is going by too fast. Patient states he also feels like his mom and sister are trying to come on to him. Patient denies drug use, suicidal ideations, homicidal ideations, hallucinations. Historical: - Allergies: 03:00 NKDA; vc1 - Home Meds: 03:00 Vraylar 1.5 mg Oral cap 1 cap once daily [Active]; vc1 - PMHx: 03:00 Bipolar disorder; Schizophrenia; vc1 - PSHx: 03:00 None; vc1 - Immunization history:: unknown. - Social history:: Smoking status: Patient reports the use of cigarette tobacco products, pt states he's not sure how many he smokes a day. ROS: 02:37 Constitutional: Negative for fever, and chills. Neck: Negative for injury, pain, and ms3 swelling, Cardiovascular: Negative for chest pain, and palpitations. Respiratory: Negative for shortness of breath, cough, wheezing, and pleuritic chest pain, Abdomen/GI: Negative for abdominal pain, nausea, vomiting, diarrhea, and constipation, MS/Extremity: Negative for injury and deformity, Skin: Negative for injury, rash, and discoloration. 02:37 Psych: Positive for anxiety. 02:37 All other systems are negative. Exam: 02:37 Constitutional: This is a well developed, well nourished patient who is awake, alert, ms3 and in no acute distress. Head/Face: Normocephalic, atraumatic. Chest/axilla: Normal chest wall appearance and motion. Nontender with no deformity. Cardiovascular: Regular rate and rhythm with a normal S1 and S2. No gallops, murmurs, or rubs. Normal PMI, no JVD. No pulse deficits. Respiratory: Lungs have equal breath sounds bilaterally, clear to auscultation and percussion. No rales, rhonchi or wheezes noted. No increased work of breathing, no retractions or nasal flaring. Abdomen/GI: Soft, non-tender, with normal bowel sounds. No distension or tympany. No guarding or rebound. No evidence of tenderness throughout. Skin: Warm, dry with normal turgor. Normal color with no rashes, no lesions, and no evidence of cellulitis. MS/ Extremity: Pulses equal, no cyanosis. Neurovascular intact. Full, normal range of motion. 02:37 Psych: Behavior/mood is pleasant, anxious, Affect is animated, Oriented to person, place, time, Patient has no thoughts/intents to harm self or others. 03:55 ECG was reviewed by the Attending Physician. ms3 Vital Signs: 02:40 BP 124 / 90; Pulse 75; Resp 15; Temp 98; Pulse Ox 98% ; Weight 68.04 kg; Height 5 ft. 2 vc1 in. ; Pain 0/10; 04:00 BP 126 / 71; Pulse 59; Resp 15; Pulse Ox 98% ; vc1 02:40 Body Mass Index 27.44 (68.04 kg, 157.48 cm) vc1 02:40 Pain Scale: Adult vc1 MDM: 02:36 Patient medically screened. ms3 02:37 Differential diagnosis: drug withdrawal. acute psychotic break, psychosis secondary to ms3 non-compliance. 05:13 Data reviewed: vital signs, nurses notes, and as a result, I will discharge patient. I ms3 considered the following discharge prescriptions or medication management in the emergency department Medications were administered in the Emergency Department. See MAR. Independent interpretation of the following test(s) in the Emergency Department EKG: See my EKG interpretation above. Historians other than the Patient: EMS: [facility]. Counseling: I had a detailed discussion with the patient and/or guardian regarding the historical points, exam findings, and any diagnostic results supporting the discharge/admit diagnosis, lab results, the need for outpatient follow up, to return to the emergency department if symptoms worsen or persist or if there are any questions or concerns that arise at home. Response to treatment: the patient's symptoms have markedly improved after treatment, and as a result, I will discharge patient. Special discussion: I discussed with the patient/guardian in detail that at this point there is no indication for admission to the hospital. It is understood, however, that if the symptoms persist or worsen the patient needs to return immediately for re-evaluation. ED course: Discussed labs and EKG with patient. Patient to follow-up with psychiatry and primary care in 2 to 3 days. Patient understands and agrees with plan. All questions were answered. Return precautions discussed include worsening symptoms, or any other concerns. On reevaluation patient is alert and orient x4, no apparent distress, nontoxic-appearing, without hallucinations, without suicidal ideations or intent, without homicidal ideations or intent. 10/26 02:36 Order name: Acetaminophen; Complete Time: 04:46 ms3 10/26 02:36 Order name: BMP; Complete Time: 04:46 ms3 10/26 02:36 Order name: CBC with Diff; Complete Time: 04:59 ms3 10/26 02:36 Order name: Ethanol; Complete Time: 04:37 ms3 10/26 02:36 Order name: Hepatic Function; Complete Time: 04:46 ms3 10/26 02:36 Order name: Protime (+inr); Complete Time: 04:59 ms3 10/26 02:36 Order name: Ptt, Activated; Complete Time: 04:59 ms3 10/26 02:36 Order name: Salicylate; Complete Time: 04:37 ms3 10/26 02:36 Order name: Urine Drug Screen; Complete Time: 04:37 ms3 10/26 02:36 Order name: EKG; Complete Time: 02:37 ms3 10/26 02:36 Order name: EKG - Nurse/Tech; Complete Time: 04:02 ms3 10/26 02:36 Order name: IV Saline Lock; Complete Time: 03:42 ms3 10/26 02:36 Order name: Labs collected and sent; Complete Time: 03:42 ms3 10/26 02:36 Order name: O2 Per Protocol; Complete Time: 03:42 ms3 10/26 02:36 Order name: O2 Sat Monitoring; Complete Time: 03:42 ms3 10/26 02:36 Order name: Suicide Screening ([place]); Complete Time: 03:42 ms3 EC:55 Rate is 63 beats/min. Rhythm is regular. QRS Adger is Normal. CA interval is normal. QRS ms3 interval is normal. Clinical impression: Normal ECG. Interpreted by me. Reviewed by me. Administered Medications: 03:50 Drug: Ativan IVP 1 mg Route: IVP; Site: right antecubital; vc1 05:18 Follow up: Response: No adverse reaction as6 Disposition Summary: 10/26/22 05:12 Discharge Ordered Location: Home ms3 Condition: Stable ms3 Diagnosis - Schizophrenia, unspecified ms3 - Chronic pain, not elsewhere classified ms3 Followup: ms3 - With: Simón Smith MD - When: 2 - 3 days - Reason: Recheck today's complaints Followup: ms3 - With: iFli Swift DO - When: 2 - 3 days - Reason: Recheck today's complaints Discharge Instructions: - Discharge Summary Sheet ms3 - Schizophrenia ms3 - Supporting Someone With Schizophrenia ms3 Forms: - Medication Reconciliation Form ms3 - Thank You Letter ms3 - Antibiotic Education ms3 - Prescription Opioid Use ms3 - Patient Portal Instructions ms3 - Leadership Thank You Letter ms3 Signatures: Dispatcher [employer] Alexandro Hale DO DO ms3 Soha Sloan RN RN vc1 Angel Luis Kim RN as6
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
[2022-10-26 05:42] VITALS: TEMP 98; O2SAT 98
[2022-10-26 05:43] VITALS: BP 126/71
--- NOTE | 2022-10-26 12:12 | EKG ---
Test Date: 2022-10-26 Test Time: 03:52:16 Molder Foam Rubber: RUSS MEASUREMENT RESULTS: Intervals: Rate: 63 MT: 130 QRSD: 88 QT: 416 QTc: 425 [place]: P: 30 MT: 130 QRS: 60 T: 50 INTERPRETIVE STATEMENTS: Sinus rhythm with marked sinus arrhythmia Otherwise normal ECG Compared to ECG 06/26/2021 09:12:45 Early repolarization no longer present Electronically Signed On 10-26-22 12:11:49 CDT by Torrey Reagan
== END 2022-10-26 05:19 | disposition home or self-care (01) ==
LOC: ER 02:32
DX: F20.9 Schizophrenia, unspecified (principal); G89.29 Other chronic pain; F17.210 Nicotine dependence, cigarettes, uncomplicated
CPT/HCPCS: 36415; 80048; 80076; 80143; 80179; 80307; 82077; 85025; 85610; 85730; 93005; 96374; 99284

== ENCOUNTER 2022-10-26 11:21 | Emergency (ER) | payer OTHER ==
[2022-10-26 13:20] LABS: Absolute Lymphocytes (CBC) 2.6 K/uL (0.7-4.9); Hematocrit 43.2 % (39.6-49.0); Lymphocytes % 33.9 % (15.3-44.8); MCV 88.4 fL (80-100); MPV 8.3 fL (7.6-11.3); Platelets 232 thou/uL (152-406); RBC Red Blood Cell Count 4.88 M/uL (4.33-5.43)
[2022-10-26 13:42] LABS: ALT/SGPT 22 U/L (16-61); AST/SGOT 11 U/L (15-37); Albumin 4.3 g/dL (3.4-5.0); Alkaline Phosphatase 82 U/L (45-117); BUN Blood Urea Nitrogen 9 mg/dL (7-18); Bicarbonate 29 mEq/L (21-32); Bilirubin Direct 0.1 mg/dL (0-0.2); Bilirubin Indirect, Calculated 0.4 mg/dL (0.2-0.8); Bilirubin Total 0.5 mg/dL (0.2-1.0); Glomerular Filtration Rate 125 ml/min (=/>90); Glucose Level 116 mg/dL (74-106); NT PRO-BNP 41 pg/mL (<125); Potassium 3.3 mEq/L (3.5-5.1); Protein, Total 7.7 g/dL (6.4-8.2); Sodium Level 138 mEq/L (136-145)
[2022-10-26 16:06] LABS: Barbiturates NEGATIVE (NEGATIVE); Benzodiazepines NEGATIVE (NEGATIVE); Cocaine NEGATIVE (NEGATIVE); METHAMPHETAM NEGATIVE (NEGATIVE); Methadone NEGATIVE (NEGATIVE); Opiates NEGATIVE (NEGATIVE); Phencyclidine NEGATIVE (NEGATIVE); THC Cannibis NEGATIVE (NEGATIVE)
[2022-10-26] MEDS ORDERED: POTASSIUM CL SA 10 MEQ TAB PO ONE (19:25)
[2022-10-26 20:17] VITALS: TEMP 98.4
[2022-10-26 20:21] VITALS: BP 128/64; O2SAT 99
--- NOTE | 2022-10-27 16:31 | EKG ---
Test Date: 2022-10-26 Test Time: 13:00:55 Meteorological Aide: TETO MEASUREMENT RESULTS: Intervals: Rate: 76 [place]: 136 QRSD: 88 QT: 384 QTc: 432 [place]: P: 38 [place]: 136 QRS: 77 T: 64 INTERPRETIVE STATEMENTS: Normal sinus rhythm with sinus arrhythmia Normal ECG Compared to ECG 10/26/2022 03:52:16 No significant changes Electronically Signed On 10-27-22 16:27:22 CDT by Torrey Reagan
--- NOTE | 2022-10-27 19:46 | EDPHYS ---
Physician Documentation [facility] Name: Luis Fernando Smith Age: 22 yrs Sex: Male : 2000 Arrival Date: 10/26/2022 Time: 11:21 Bed 18 Private MD: ED Physician Mickey Ribeiro HPI: 10/26 15:18 Patient is a 22 year old male with PMH bipolar disorder, schizophrenia who presents ci with hallucinations and paranoia. Patient reports he feels like someone is following him. No HI/SI. Patient has not been on psych meds in many months. . Historical: - Allergies: 11:35 NKDA; iw - Home Meds: 11:35 Vraylar 1.5 mg Oral cap 1 cap once daily [Active]; iw - PMHx: 11:35 Bipolar disorder; Schizophrenia; iw - Immunization history:: Adult Immunizations unknown. - Social history:: Smoking status: unknown. Vital Signs: 11:40 BP 164 / 89; Pulse 101; Resp 20; Temp 98.4(O); Pulse Ox 98% on R/A; eh3 12:30 BP 133 / 67; Pulse 80; Resp 16; Pulse Ox 95% on R/A; eh3 16:30 BP 142 / 74; Pulse 78; Resp 18; Pulse Ox 100% on R/A; eh3 19:41 BP 128 / 64; Pulse 70; Resp 16; Pulse Ox 99% on R/A; eh3 MDM: 11:41 Patient medically screened. ci 14:26 Patient medically screened. ci 18:48 ED course: Medically cleared for psychiatric facility. Patient accepted at [facility] by Dr. Jean. ED course: Potassium repleted. 10/26 12:52 Order name: Acetaminophen Level; Complete Time: 15:15 EDMS 10/26 12:52 Order name: Alcohol Serum/Plasma; Complete Time: 15:15 EDMS 10/26 12:52 Order name: CBC with Automated Diff; Complete Time: 15:15 EDMS 10/26 15:16 Interpretation: Within normal limits. ci 10/26 12:52 Order name: Comprehensive Metabolic Panel; Complete Time: 15:15 EDMS 10/26 15:16 Interpretation: K 3.3; mild hypokalemia. ci 10/26 12:52 Order name: Liver (Hepatic) Function; Complete Time: 15:15 EDWV 10/26 12:52 Order name: NT PRO-BNP; Complete Time: 15:15 EDWV 10/26 12:52 Order name: PTT, Activated Partial Thromb; Complete Time: 15:15 EDWV 10/26 12:52 Order name: Salicylates Level; Complete Time: 15:15 EDWV 10/26 15:37 Order name: Urine Drug Screen; Complete Time: 18:47 EDWV 10/26 12:42 Order name: EKG - Nurse/Tech; Complete Time: 13:06 ci 10/26 12:42 Order name: IV Saline Lock; Complete Time: 13:26 ci 10/26 12:42 Order name: Labs collected and sent; Complete Time: 13:26 ci 10/26 12:42 Order name: Suicide Screening (Fred); Complete Time: 12:54 ci Administered Medications: 19:19 Drug: Potassium Chloride PO 20 mEq Route: PO; eh3 20:00 Follow up: Response: No adverse reaction eh3 Disposition Summary: 10/26/22 18:55 Transfer Ordered Transfer Location: Psych Facility ci Reason: Higher level of care ci Condition: Stable ci Problem: an ongoing problem ci Symptoms: are unchanged ci Accepting Physician: Dr. Jean(10/26/22 19:45) eh3 Diagnosis - Psychotic disorder with delusions due to known physiological condition ci Forms: - Medication Reconciliation Form ci - SBAR form ci Signatures: Dispatcher [employer] Susan Burks RN RN Anali Fernandez RN RN 3 Mickey Ribeiro ci Corrections: (The following items were deleted from the chart) 19:45 18:55 Dr. Jean ci eh3
--- NOTE | 2022-10-27 19:46 | ER ---
Nurse's Notes [facility] Name: Luis Fernando Smith Age: 22 yrs Sex: Male : 2000 Arrival Date: 10/26/2022 Time: 11:21 Bed 18 Private MD: Diagnosis: Psychotic disorder with delusions due to known physiological condition Presentation: 10/26 11:33 Chief complaint: EMS states: he is saying he is seeing things and hearing things, he iw has hx of schizophrenia and bipolar, has been off his meds for a month, he was recently incarcerated. He denies SI or HI at this time. 11:34 Coronavirus screen: At this time, the client does not indicate any symptoms associated iw with coronavirus-19. Ebola Screen: Patient negative for fever greater than or equal to 101.5 degrees Fahrenheit, and additional compatible Ebola Virus Disease symptoms Patient denies exposure to infectious person. Patient denies travel to an Ebola-affected area in the 21 days before illness onset. No symptoms or risks identified at this time. Initial Sepsis Screen: Does the patient meet any 2 criteria? No. Patient's initial sepsis screen is negative. Does the patient have a suspected source of infection? No. Patient's initial sepsis screen is negative. Risk Assessment: Do you want to hurt yourself or someone else? Patient reports no desire to harm self or others. 11:34 Method Of Arrival: EMS: [facility] iw 11:35 Onset of symptoms was October 26, 2022. iw 11:35 Acuity: TATO 3 iw Historical: - Allergies: 11:35 NKDA; iw - Home Meds: 11:35 Vraylar 1.5 mg Oral cap 1 cap once daily [Active]; iw - PMHx: 11:35 Bipolar disorder; Schizophrenia; iw - Immunization history:: Adult Immunizations unknown. - Social history:: Smoking status: unknown. Screenin:40 [facility] ED Fall Risk Assessment (Adult) Score/Fall Risk Level 0 - 2 = Low Risk. Abuse eh3 screen: Denies threats or abuse. Denies injuries from another. Nutritional screening: No deficits noted. Tuberculosis screening: No symptoms or risk factors identified. Assessment: 11:40 General: Appears in no apparent distress. comfortable, Behavior is cooperative, eh3 anxious. Pain: Denies pain. Neuro: Level of Consciousness is awake, alert, obeys commands, Oriented to person, place, situation. Cardiovascular: Capillary refill < 3 seconds Patient's skin is warm and dry. Respiratory: Airway is patent Respiratory effort is even, unlabored, Respiratory pattern is regular, symmetrical. GI: Abdomen is round non-distended. Derm: Skin is pink, warm \\T\\ dry. Musculoskeletal: Circulation, motion, and sensation intact. 11:40 Reassessment: FAMILY CONTACT: mother Neli Smith [phone]. 3 12:30 Reassessment: Patient appears in no apparent distress at this time. Patient and/or eh3 family updated on plan of care and expected duration. Pain level reassessed. Patient is alert, oriented x 3, equal unlabored respirations, skin warm/dry/pink. 13:30 Reassessment: Patient appears in no apparent distress at this time. Patient and/or iw family updated on plan of care and expected duration. Pain level reassessed. Patient is alert, oriented x 3, equal unlabored respirations, skin warm/dry/pink. 14:30 Reassessment: Patient appears in no apparent distress at this time. Patient and/or iw family updated on plan of care and expected duration. Pain level reassessed. Patient is alert, oriented x 3, equal unlabored respirations, skin warm/dry/pink. 15:30 Reassessment: Patient appears in no apparent distress at this time. Patient and/or eh3 family updated on plan of care and expected duration. Pain level reassessed. Patient is alert, oriented x 3, equal unlabored respirations, skin warm/dry/pink. 16:30 Reassessment: Patient appears in no apparent distress at this time. Patient and/or eh3 family updated on plan of care and expected duration. Pain level reassessed. Patient is alert, oriented x 3, equal unlabored respirations, skin warm/dry/pink. 17:30 Reassessment: Patient appears in no apparent distress at this time. Patient and/or eh3 family updated on plan of care and expected duration. Pain level reassessed. Patient is alert, oriented x 3, equal unlabored respirations, skin warm/dry/pink. 18:20 Reassessment: report given to [facility]. 18:30 Reassessment: Patient appears in no apparent distress at this time. Patient and/or eh3 family updated on plan of care and expected duration. Pain level reassessed. Patient is alert, oriented x 3, equal unlabored respirations, skin warm/dry/pink. 19:30 Reassessment: Patient appears in no apparent distress at this time. Patient and/or eh3 family updated on plan of care and expected duration. Pain level reassessed. Patient is alert, oriented x 3, equal unlabored respirations, skin warm/dry/pink. Psych: 11:40 [place] Suicide Severity Screening: In the past month, have you wished you were eh3 or wished you could go to sleep and not wake up? Patient responds "No." "In the past month, have you actually had any thoughts of killing yourself?" Patient responds "no." "In your lifetime, have you ever done anything, started to do anything, or prepared to do anything to end your life?" Patient responds "no.". Subjective: Patient's mood is elevated, Delusions are persecutory, Hallucinations are auditory, visual. Objective: Patient is Speech is rapid, Affect is appropriate. Interventions: Searched person for dangerous items. Urine collected and sent for urine drug test. Patient reassessed during use of restraints. Patient is physically safe. Safety Checks: Door is open. Pt denies substance abuse. Commitment: Patient will be a voluntary commitment. Vital Signs: 11:40 BP 164 / 89; Pulse 101; Resp 20; Temp 98.4(O); Pulse Ox 98% on R/A; eh3 12:30 BP 133 / 67; Pulse 80; Resp 16; Pulse Ox 95% on R/A; eh3 16:30 BP 142 / 74; Pulse 78; Resp 18; Pulse Ox 100% on R/A; eh3 19:41 BP 128 / 64; Pulse 70; Resp 16; Pulse Ox 99% on R/A; eh3 ED Course: 11:30 Patient arrived in ED. mg5 11:34 Arm band placed on. iw 11:35 Triage completed. iw 11:40 Patient has correct armband on for positive identification. Bed in low position. Call eh3 light in reach. Side rails up X2. Valuables inventory done. Left with patient. Provided Education on: Use of call heller. Client placed on continuous cardiac and pulse oximetry monitoring. NIBP monitoring applied. 11:41 Mickey Ribeiro is Attending Physician. ci 12:02 Anali Fernandez, RN is Primary Nurse. eh3 12:30 Mickey Ribeiro is Attending Physician. ci 13:14 NT PRO-BNP Sent. bc6 13:14 PTT, Activated Partial Thromb Sent. bc6 13:14 Salicylates Level Sent. bc6 13:14 CBC with Automated Diff Sent. bc6 13:14 Comprehensive Metabolic Panel Sent. bc6 13:14 Liver (Hepatic) Function Sent. bc6 13:14 Acetaminophen Level Sent. bc6 13:14 Alcohol Serum/Plasma Sent. bc6 13:14 Inserted saline lock: 22 gauge in right antecubital area, using aseptic technique. bc6 Blood collected. 14:00 Diet: Patient given a regular meal tray. Patient given water. Tolerated well. eh3 16:00 Diet: Patient given snack. Patient given water. Tolerated well. 3 16:00 Urine Drug Screen Sent. 10 17:58 [facility]. bd 19:44 No provider procedures requiring assistance completed. IV discontinued, intact, eh3 bleeding controlled, No redness/swelling at site. Pressure dressing applied. Administered Medications: 19:19 Drug: Potassium Chloride PO 20 mEq Route: PO; 3 20:00 Follow up: Response: No adverse reaction eh3 Medication: 19:44 VIS not applicable for this client. 3 Outcome: 18:55 ER care complete, transfer ordered by MD. ci 19:44 Transferred by ground EMS Note: [place] [id number] 19:44 Condition: stable 19:44 Instructed on the need for transfer. 19:45 Patient left the ED. 3 Signatures: Sary Nam Irene, RN RN iw Anali Fernandez, HONEY RN eh3 Tammy Pink bc6 Kaylene Bhatti RN RN cm10 Tabby Kay mg5 Mickey Ribeiro ci Corrections: (The following items were deleted from the chart) 11:34 11:33 Chief complaint: EMS states: he is saying he is seeing things and hearing things, iw he has hx of schizophrenia and bipolar, has been off his meds for a month, he was recently incarcerated iw
== END 2022-10-26 19:45 ==
LOC: ER 11:21
DX: F20.9 Schizophrenia, unspecified (principal)
CPT/HCPCS: 36415; 80053; 80143; 80179; 80307; 82077; 82248; 83880; 85025; 85730; 93005; 99285

== ENCOUNTER 2022-11-12 22:06 | Emergency (ER) | payer OTHER ==
--- OUTSIDE RECORDS SUMMARY | 2022-11-12 22:13 | XMS REPORT | Continuity of Care Document ---
:2000 Author Organization [facility] t Address [address] [place] [place] [address] Care Team Providers Name Role Phone DARLEEN HOWARD Primary Care Physician Unavailable DR DARLEEN HOWARD Attending Clinician Unavailable [phone] Attending Clinician Unavailable [id number] Attending Clinician Unavailable Donald Lewis Attending Clinician Unavailable Arsen Bernard Attending Clinician Unavailable Sergio Shane Attending Clinician Unavailable Raphael Monge Attending Clinician Unavailable Noni Bai Attending Clinician Unavailable Diego Muñoz Attending Clinician Unavailable DR DARLEEN HOWARD Admitting Clinician Unavailable UNDEFINED Admitting Clinician Unavailable Payers Payer Name Policy Type Policy Number Effective Date Expiration Date Formerly [facility] [id number] [facility] [id number] CHOICE - Problems Condition Condition Condition Status Onset Resolution Last Treating Co mments Source Name Details Category Date Date Treatment Clinician Date Fractured Fractured Problem Active 2013-032017-09-02 Memoria nasal nasal - 15:05:38 l bones bones 00:00: Destin (disorder) (disorder) 00 Active 02/05/2014 Problem 09/02/2017 Data migrated from [employer] on 07/28/14. [facility] Gastroesop Problem Active 2017-09-02 M emoria hageal Gastroesop 15:05:38 l reflux hageal Destin disease reflux (disorder) disease (disorder) Active Problem 09/02/2017 Data migrated from [employer] on 07/28/14. [facility] Upper Upper Problem Resolve 2012-032017-09-02 2017-09-02 Memoria respirator respirator d 03-01 15:05:38 15:05:38 l y y 00:00: [place] infection infection 00 (disorder) (disorder) Resolved 12/30/2012 Problem 09/02/2017 Data migrated from [employer] on 09/15/14.<b r/>Data migrated from [employer] on 09/14/14. [facility] Backache Backache Problem Resolve 2017-09-02 2017-09-02 Memoria (finding) (finding) d 06-10 15:05:38 15:05:38 l Resolved 00:00: [place] 06/10/2012 00 Problem 09/02/2017 Data migrated from [...] No Known MA Active UNKNOWN [facility] Social History Smoking Status Start Date Stop Date Source Social History 2017-05-28 12:39:50 [facility] Medications This patient has no known medications. Immunizations Ordered Immunization Filled Immunization Date Status Commen ts Source Name Name human papillomavirus 2012-10-28 Completed Vinay rial vaccine<sup>5</sup> 05:00:00 Miladys nn diphtheria/pertussis, 2012-10-28 Completed Mem orial acel/tetanus 05:00:00 [place]in adult<sup>1</sup> meningococcal 2012-10-28 Completed [facility] conjugate 05:00:00 [place] vaccine<sup>2</sup> influenza virus 2012-10-28 Completed [facility] vaccine, live, 05:00:00 [place] trivalent<sup>3</sup> Hx influenza 2012-10-28 Completed [facility] vaccine-unspecified<s [...] diphtheria/pertussis, 2012-10-28 Completed Mem orial acel/tetanus 05:00:00 [place] adult<sup>1</sup> meningococcal 2012-10-28 Completed [facility] conjugate 05:00:00 [place] vaccine<sup>2</sup> influenza virus 2012-10-28 Completed [facility] vaccine, live, 05:00:00 [place]in trivalent<sup>3</sup> Hx influenza 2012-10-28 Completed [facility] vaccine-unspecified<s 05:00:00 Her hawkins up>4</sup> human papillomavirus 2012-10-28 Completed Vinay rial vaccine<sup>5</sup> 05:00:00 Miladys nn diphtheria/pertussis, 2012-10-28 Completed Mem orial acel/tetanus 05:00:00 [place] adult<sup>1</sup> meningococcal 2012-10-28 Completed [facility] conjugate 05:00:00 [place] vaccine<sup>2</sup> diphtheria/pertussis, 2012-10-28 Completed Mem orial acel/tetanus 05:00:00 [place] adult<sup>1</sup> influenza virus 2012-10-28 Completed [facility] vaccine, live, 05:00:00 [place]in trivalent<sup>3</sup> meningococcal 2012-10-28 Completed [facility] conjugate 05:00:00 [place] vaccine<sup>2</sup> influenza virus 2012-10-28 Completed [facility] vaccine, [...] diphtheria/pertussis, 2012-10-28 Completed Mem orial acel/tetanus 05:00:00 [place] adult<sup>1</sup> meningococcal 2012-10-28 Completed [facility] conjugate 05:00:00 [place] vaccine<sup>2</sup> influenza virus 2012-10-28 Completed [facility] vaccine, live, 05:00:00 [place] trivalent<sup>3</sup> Hx influenza 2012-10-28 Completed [facility] vaccine-unspecified<s 05:00:00 Her hawkins up>4</sup> human papillomavirus 2012-10-28 Completed Vinay rial vaccine<sup>5</sup> 05:00:00 Miladys nn human papillomavirus 2012-10-28 Completed Vinay rial vaccine<sup>5</sup> 05:00:00 Miladys nn diphtheria/pertussis, 2012-10-28 Completed Mem orial acel/tetanus 05:00:00 [place] adult<sup>1</sup> meningococcal 2012-10-28 Completed [facility] conjugate 05:00:00 [place] vaccine<sup>2</sup> influenza virus 2012-10-28 Completed [facility] vaccine, live, 05:00:00 [place] trivalent<sup>3</sup> Hx influenza 2012-10-28 Completed [facility] vaccine-unspecified<s 05:00:00 Her hawkins up>4</sup> human papillomavirus 2012-10-28 Completed Vinay rial vaccine<sup>5</sup> 05:00:00 Miladys nn diphtheria/pertussis, 2012-10-28 Completed Mem orial acel/tetanus 05:00:00 [place]in adult<sup>1</sup> meningococcal 2012-10-28 Completed [facility] conjugate 05:00:00 [place]in vaccine<sup>2</sup> influenza virus 2012-10-28 Completed [facility] vaccine, live, 05:00:00 [place] trivalent<sup>3</sup> Hx influenza 2012-10-28 Completed [facility] vaccine-unspecified<s 05:00:00 Her hawkins up>4</sup> human papillomavirus 2012-10-28 Completed Vinay rial vaccine<sup>5</sup> 05:00:00 Miladys nn diphtheria/pertussis, 2012-10-28 Completed Mem orial acel/tetanus 05:00:00 [place] adult<sup>1</sup> meningococcal 2012-10-28 Completed [facility] conjugate 05:00:00 [place]in vaccine<sup>2</sup> influenza virus 2012-10-28 Completed [facility] vaccine, live, 05:00:00 [place]in trivalent<sup>3</sup> Hx influenza 2012-10-28 Completed [facility] vaccine-unspecified<s 05:00:00 Her hawkins up>4</sup> human papillomavirus 2012-10-28 Completed Vinay rial vaccine<sup>5</sup> 05:00:00 Miladys nn diphtheria/pertussis, 2012-10-28 Completed Mem orial acel/tetanus 05:00:00 [place] adult<sup>1</sup> meningococcal 2012-10-28 Completed [facility] conjugate 05:00:00 [place] vaccine<sup>2</sup> influenza virus 2012-10-28 Completed [facility] vaccine, live, 05:00:00 [place] trivalent<sup>3</sup> Hx influenza 2012-10-28 Completed [facility] vaccine-unspecified<s 05:00:00 Her hawkins up>4</sup> human papillomavirus 2012-10-28 Completed Vinay rial vaccine<sup>5</sup> 05:00:00 Miladys nn diphtheria/pertussis, 2012-10-28 Completed Mem orial acel/tetanus 05:00:00 [place] adult<sup>1</sup> meningococcal 2012-10-28 Completed [facility] conjugate 05:00:00 [place] vaccine<sup>2</sup> influenza virus 2012-10-28 Completed [facility] vaccine, live, 05:00:00 [place]in trivalent<sup>3</sup> Hx influenza 2012-10-28 Completed [facility] vaccine-unspecified<s 05:00:00 Her hawkins up>4</sup> human papillomavirus 2012-10-28 Completed Vinay rial vaccine<sup>5</sup> 05:00:00 Miladys nn diphtheria/pertussis, 2012-10-28 Completed Mem orial acel/tetanus 05:00:00 [place]in adult<sup>1</sup> meningococcal 2012-10-28 Completed [facility] conjugate 05:00:00 [place]in vaccine<sup>2</sup> influenza virus 2012-10-28 Completed [facility] vaccine, live, 05:00:00 [place] trivalent<sup>3</sup> Hx influenza 2012-10-28 Completed [facility] vaccine-unspecified<s [...] virus 2008-07-04 Completed [facility] vaccine<sup>10</sup> 17:25:17 Herm veelyne Hx hepatitis A 2006-08-12 Completed [facility] vaccine<sup>12</sup> [...] measles/mumps/rubella 2003-01-15 Completed Mem orial virus 18:25:17 [place] vaccine<sup>18</sup> Hx diphth/pertussis, 2003-01-15 Completed Vinay rial acellular/tetanus<sup 18:25:17 Her hawkins >20</sup> Hx poliovirus 2003-01-15 Completed [facility] vaccine-unspecified<s 18:25:17 Her hawkins up>14</sup> measles/mumps/rubella 2003-01-15 Completed Mem orial virus 18:25:17 [place] vaccine<sup>18</sup> Hx diphth/pertussis, 2003-01-15 Completed Vinay rial acellular/tetanus<sup 18:25:17 Her hawkins >20</sup> Hx poliovirus 2003-01-15 Completed [facility] vaccine-unspecified<s 18:25:17 Her hawkins up>14</sup> Hx poliovirus 2003-01-15 Completed [facility] vaccine-unspecified<s 18:25:17 Her hawkins up>14</sup> measles/mumps/rubella 2003-01-15 Completed Mem orial virus 18:25:17 [place] vaccine<sup>18</sup> Hx diphth/pertussis, 2003-01-15 Completed Vinay rial acellular/tetanus<sup 18:25:17 Her hawkins >20</sup> measles/mumps/rubella 2003-01-15 Completed Mem orial virus 18:25:17 [place] vaccine<sup>18</sup> Hx diphth/pertussis, 2003-01-15 Completed Vinay rial [...] measles/mumps/rubella 2003-01-15 Completed Mem orial virus 18:25:17 [place] vaccine<sup>18</sup> Hx diphth/pertussis, 2003-01-15 Completed Vinay rial acellular/tetanus<sup 18:25:17 Her hawkins >20</sup> Hx poliovirus 2003-01-15 Completed [facility] vaccine-unspecified<s 18:25:17 Her hawkins up>14</sup> measles/mumps/rubella 2003-01-15 Completed Mem orial virus 18:25:17 [place] vaccine<sup>18</sup> Hx diphth/pertussis, 2003-01-15 Completed Vinay rial [...] measles/mumps/rubella 2003-01-15 Completed Mem orial virus 18:25:17 [place] vaccine<sup>18</sup> Hx diphth/pertussis, 2003-01-15 Completed Vinay rial [...] measles/mumps/rubella 2000-01-14 Completed Mem orial virus 18:25:17 [place] vaccine<sup>19</sup> Hx pneumococcal 2000-01-14 Completed [facility] vaccine<sup>7</sup> 18:25:17 Miladys nn varicella virus 2000-01-14 Completed [facility] vaccine<sup>11</sup> 18:25:17 Herm evelyne measles/mumps/rubella 2000-01-14 Completed Mem orial virus 18:25:17 [place]in vaccine<sup>19</sup> Hx pneumococcal 2000-01-14 Completed [facility] vaccine<sup>7</sup> 18:25:17 Miladys nn varicella virus 2000-01-14 Completed [facility] vaccine<sup>11</sup> 18:25:17 Herm evelyne measles/mumps/rubella 2000-01-14 Completed Mem orial virus 18:25:17 [place] vaccine<sup>19</sup> Hx pneumococcal 2000-01-14 Completed [facility] vaccine<sup>7</sup> 18:25:17 Miladys nn varicella virus 2000-01-14 Completed [facility] vaccine<sup>11</sup> 18:25:17 Herm evelyne varicella virus 2000-01-14 Completed [facility] vaccine<sup>11</sup> 18:25:17 Herm evelyne measles/mumps/rubella 2000-01-14 Completed Mem orial virus 18:25:17 [place] vaccine<sup>19</sup> Hx pneumococcal 2000-01-14 Completed [facility] vaccine<sup>7</sup> 18:25:17 Miladys nn measles/mumps/rubella 2000-01-14 Completed Mem orial virus 18:25:17 [place]in vaccine<sup>19</sup> Hx pneumococcal 2000-01-14 Completed [facility] vaccine<sup>7</sup> 18:25:17 Miladys nn varicella virus 2000-01-14 Completed [facility] vaccine<sup>11</sup> 18:25:17 Herm evelyne measles/mumps/rubella 2000-01-14 Completed Mem orial virus 18:25:17 [place] vaccine<sup>19</sup> Hx pneumococcal 2000-01-14 Completed [facility] vaccine<sup>7</sup> 18:25:17 Miladys nn varicella virus 2000-01-14 Completed [facility] vaccine<sup>11</sup> 18:25:17 Herm evelyne measles/mumps/rubella 2000-01-14 Completed Mem orial virus 18:25:17 [place] vaccine<sup>19</sup> Hx pneumococcal 2000-01-14 Completed [facility] vaccine<sup>7</sup> [...] measles/mumps/rubella 2000-01-14 Completed Mem orial virus 18:25:17 [place] vaccine<sup>19</sup> Hx pneumococcal 2000-01-14 Completed [facility] vaccine<sup>7</sup> 18:25:17 Miladys nn varicella virus 2000-01-14 Completed [facility] vaccine<sup>11</sup> 18:25:17 Herm evelyne measles/mumps/rubella 2000-01-14 Completed Mem orial virus 18:25:17 [place] vaccine<sup>19</sup> Hx pneumococcal 2000-01-14 Completed [facility] vaccine<sup>7</sup> 18:25:17 Miladys nn pneumococcal 1999 Completed [facility] vaccine<sup>8</sup> [...] 1999 Completed [facility] vaccine<sup>9</sup> 17:25:17 Miladys nn haemophilus b 1999 Completed [facility] vaccine<sup>29</sup> 17:25:17 [...] [facility] vaccine-unspecified<s 18:25:17 Her hawkins up>17</sup> Hx poliovirus 1999 Completed [facility] vaccine-unspecified<s 18:25:17 Her hawkins up>17</sup> Hx hepatitis B 1999 Completed [facility] vaccine<sup>26</sup> 18:25:17 Herm evelyne Hx haemophilus b 1999 Completed [facility] vaccine<sup>31</sup> 18:25:17 Herm evelyne Hx diphth/pertussis, 1999 Completed Vinay rial acellular/tetanus<sup 18:25:17 Her hawkins >24</sup> Hx hepatitis B 1999 Completed [facility] vaccine<sup>26</sup> [...] Source Respitory Rate 2017-05-28 12:34:00 Nader al Destin Height 2017-05-28 12:34:00 163.83 cm [facility] [place] Weight 2017-05-28 12:34:00 [facility] [place] BMI Calculated 2017-05-28 12:34:00 Memori al [place] Systolic (mm Hg) 2017-05-28 12:34:00 Vinay rianereida [place] Diastolic (mm Hg) 2017-05-28 12:34:00 Mem orial [place] Heart Rate 2017-05-28 12:34:00 [facility] [place] Procedures This patient has no known procedures. Encounters Start End Encounter Admission Attending Care Care Encounter Source Date/Time Date/Time Type Type Clinicians Facility Department ID 2022-02-10 Inpatient [facility] [id number] 10:01:09 [id number] [place] 2022-01-07 Outpatient BACCHRISTIAN DARLEEN ELCAMPO ELCAMPO [id number] [place] 16:21:38 [id number] Adalberto gama [id number] [facility] 2022-01-06 [facility] [id number] [place] 15:24:26 [id number] [place] 2022-01-01 Outpatient ELCAMPO ELCAMPO [id number] [place] 16:22:26 [id number] [facility] 2022-01-01 Inpatient TEXANA CINDI [id number] [place] 09:02:34 [id number] [place] 2021-12-31 Inpatient TEXBERENICE PUENTE [id number] [place] 09:58:20 [id number] [place] 2021-10-25 Outpatient ELCAMPO ELCAMPO [id number] [place] 10:24:07 [id number] [facility] 2022-08-12 2022-08-12 Emergency EM Masters-Yaneli [facility] ER [id number] [facility] 13:01:00 14:20:00 Donald newman 10 [facility] 2022-08-02 2022-08-02 Emergency EM Marco Antonio, [facility] ER [id number] [facility] 17:35:00 19:15:00 Arsen 01 [facility] 2022-07-22 2022-07-22 Emergency EM Acosta, [facility] ER [id number] [facility] 13:22:00 23:04:00 Sergio 69 [facility] 2022-07-21 2022-07-22 Emergency EM Saleem, [facility] ER [id number] [facility] 19:06:00 07:56:00 Lim 60 [facility] 2022-07-19 2022-07-19 Emergency EL Meagan [facility] ER [id number] [facility] 11:29:00 13:32:00 Esetvan, 21 [facility] 2022-07-18 2022-07-19 Emergency EM Diego Muñoz [facility] ER [id number] [facility] 21:21:00 11:36:00 64 [facility] 2022-01-08 2022-01-08 Outpatient M BACCAM, DARLEEN ELCAMPO PPL [facility] [id number] [place] 16:23:00 16:23:00 [id number] Cam po [id number] [facility] 2022-01-01 2022-01-01 Outpatient M BACCAM, DARLEEN ELCAMPO PPL [facility]HC [id number] [place] 16:23:00 21:20:00 [id number] Cam po [id number] [facility] 2021-10-27 2021-10-27 Outpatient M BACCAM, DARLEEN ELCAMPO PPL [facility] [id number] [place] 10:24:00 10:24:00 [id number] Cam po [id number] [facility] 2017-05-27 2017-05-28 Outpatient nullFlavo [facility] Family [id number] Memoria 19:45:00 04:59:59 r Medicine El 02 l Carlos Weir 2017-05-27 2017-05-28 Outpatient nullFlavo Family 4 [id number] [facility] 19:45:00 04:59:59 r Medicine El 02 l Carlos Weir 2017-05-27 2017-05-27 Outpatient [facility] [id number] 14:45:00 23:59:59 02 2017-05-27 2017-05-27 Outpatient SAJI SAJI [id number] Memoria 14:45:00 14:45:00 02 nereida Weir 2016-05-08 2016-05-08 Outpatient SAJI SAJI [id number] [facility] 13:30:00 13:30:00 01 nereida Weir 2016-05-08 2016-05-08 Outpatient SAJI SAJI [id number] [facility] 13:30:00 13:30:00 01 nereida Weir [...] the annita mmended formula for GFRby the [facility].The GFR will not [...] Units/L 50-136 N (test code = ALKP) [id number] 13:49:00 Test Item Value Reference Range Interpretation Comments ACETAMINOPHEN (test < 1 MCG/ML 10-30 L Acetamin ophen is code = ACET) possibly toxic at levels of: 1. m ore than 150 MCG/ML 4 hours post catie stion. 2. more than 50 MCG/ML 12 hours post ingestion. [id number] 13:49:00 Test Item Value Reference Range Interpretation Comments SALICYLATE (test code = < 3 MG/DL 0-20 N Refe rence Range: CODY) Analgesic...... ...... ...... < 10 mg/ dl Therapeutic.... ...... ...... 15-20 mg /dl Mild Toxicity....... ...... . > 30 mg/dl Se destiney Toxicity....... ..... > 60 mg/dl [id number] 13:49:00 Test Item Value Reference Range Interpretation [...] emp loyment evaluative purp oses. CBC W/AUTO [id number] 13:32:00 Test Item Value Reference Range Interpretation [...] 3/uL 0.0-0.2 N - XR CHEST 1 [id number] 18:51:00 [facility] 2000 Sex: M Patient Name: VIVIENNE CAMACHO Unit No: [id number] EXAMS: CPT CODE: [id number] XR CHEST 1 V [id number] Reason: altered mental status EXAM: Chest one view. Location: [facility] HISTORY: altered mental status COMPARISON: 07/19/2022 FINDINGS: [...] (1850)MaribellAL7 Orig Print D/T: S: 08/02/2022 (1853) Garner FSED NAME: VIVIENNE CAMACHO [id number] [facility] PHYS: Sergio Liu MD [place] [id number] : 2000 AGE: 22 SEX: M LOC: ANNIE PHONE #: [phone] EXAM DATE: 08/02/2022 STATUS: PRE ER FAX #: RAD NO: DC Dt: PAGE 1 Signed ReportBASIC METABOLIC [id number] 18:31:00 Test Item Value Reference Range Interpretation [...] 9.2 MG/DL 8.7-10.5 N CA) HEPATIC FUNCTION [id number] 18:31:00 Test Item Value Reference Range Interpretation [...] MG/DL 0.0-0.7 N (test code = BILIND) [id number] 18:31:00 Test Item Value Reference Range Interpretation Comments CK (test code = CKT) 226 Units/L 39-308 N TROP-I HIGH [id number] 18:31:00 Test Item Value Reference Range Interpretation [...] atient is taking high doses of Biotin. [id number] 18:31:00 Test Item Value Reference Range Interpretation Comments ACETAMINOPHEN (test < 1 MCG/ML 10-30 L Acetamin ophen is code = ACET) possibly toxic at levels of: 1. m ore than 150 MCG/ML 4 hours post catie stion. 2. more than 50 MCG/ML 12 hours post ingestion. [id number] 18:31:00 Test Item Value Reference Range Interpretation Comments SALICYLATE (test code = < 3 MG/DL 0-20 N Refe rence Range: CODY) Analgesic...... ...... ...... < 10 mg/ dl Therapeutic.... ...... ...... 15-20 mg /dl Mild Toxicity....... ...... . > 30 mg/dl Se destiney Toxicity....... ..... > 60 mg/dl [id number] 18:31:00 Test Item Value Reference Range Interpretation [...] evaluative purp oses. DRUG OF ABUSE SCREEN [id number] 18:26:00 Test Item Value Reference Interpretation Comments [...] by norah avila methods (i.e., GC/MS) at [facility]. Results of scre en may not be usedin crimi nal justice, job performance or professionalcre dential review, or infa nt custody issues. Negativ e [place] Level ng/ml ------- ----- Cocaine 300 Methamphetamine (Ecstacy) 500 Cannabinoid s (THC) 50 Amphetamine 10 00 Barbiturates 20 0 Benzodiazepines 200 Opiates 300 Phencyclid ine (PCP) 25 UA RFLX MICROSCOPIC [id number] 18:24:00 Test Item Value Reference Range Interpretation [...] RiskForSepsis-no oth srcURINE SOURCE: Clean CatchCBC W/AUTO [id number] 18:23:00 Test Item Value Reference Range Interpretation [...] 0.05 x10 3/uL 0.0-0.2 N UA RFLX [id number] 16:52:00 Test Item Value Reference Range Interpretation [...] Catch (test code = UASPEC) COMPREHENSIVE METABOLIC [id number] 16:29:00 Test Item Value Reference Range Interpretation [...] TOTAL (test code = ALKP) THYROID STIMULATING [id number] 16:29:00 Test Item Value Reference Range Interpretation Comments THYROID STIMULATING 0.62 0.42-5.47 N Micro-In ternational HORMONE (test code = TSH) Un its/LResults of this assay method ma y be falsely depress ed orelevated if p atient is taking high doses of Biotin. [id number] 16:29:00 Test Item Value Reference Range Interpretation Comments CK (test code = CKT) 59 Units/L 39-308 N [id number] 16:29:00 Test Item Value Reference Range Interpretation Comments ACETAMINOPHEN (test < 1 MCG/ML 10-30 L Acetamin ophen is code = ACET) possibly toxic at levels of: 1. m ore than 150 MCG/ML 4 hours post catie stion. 2. more than 50 MCG/ML 12 hours post ingestion. [id number] 16:29:00 Test Item Value Reference Range Interpretation Comments ALCOHOL (test code = < 3 MG/DL 0-10 N 0 - 10 : Should be ALC) interpreted as NEGATIVE. 11 - 50: None to mild euphoria. 51 - 100: Mild influence on vi sarah and dark adaptation . > 80: Legal intoxicat ion; Depression of C NS; Increasing degr ee of poisoning. > 40 0: Fatalities repo rted. Results are for medical purposes only a nd not forlegal or emp loyment evaluative purp oses. CBC W/AUTO [id number] 16:09:00 Test Item Value Reference Range Interpretation [...] X10 3/uL 0.0-0.2 N NRBC#) UA RFLX [id number] 20:58:00 Test Item Value Reference Range Interpretation [...] Catch DESCRIPTION (test code = UASPEC) UA [id number] 20:58:00 Test Item Value Reference Range Interpretation [...] code = AMORU) DRUG OF ABUSE SCREEN [id number] 20:58:00 Test Item Value Reference Interpretation Comments [...] by norah avila methods (i.e., GC/MS) at [facility]. Results of scre en may not be usedin crimi nal justice, job performance or professionalcre dential review, or infa nt custody issues. Negativ e [place] Level ng/ml ------- ----- Cocaine 3 00 Methamphetamine (Ecstacy) 500 Cannabinoi ds (THC) 50 Amphetamine 100 0 Barbiturates 20 0 Benzodiazepines 200 Opiates 300 Phencyclidi ne (PCP) 25 Coronavirus 2019 nCoV [id number] 20:34:00 Test Item Value Reference Range Interpretation Comments Coronavirus 2019 Negative Negative ID NOW COVI D-19 assay nCoV Bedside (test performed on the ID NOW code = [id number]) Instrum ent ulysses rapid molecular in vi tro diagnostic test utilizing anisothermal nu cleic acid amplification t echnology intendedfor the qualitative det ection of nucleic acid fr om swpGLKW-YcW-5 v iral RNA in direct nasal , [...] , and epidemiological informatio n. COMPREHENSIVE METABOLIC [id number] 20:18:00 Test Item Value Reference Range Interpretation [...] 50-136 N TOTAL (test code = ALKP) [id number] 20:18:00 Test Item Value Reference Range Interpretation Comments CK (test code = CKT) 85 Units/L 39-308 N [id number] 20:18:00 Test Item Value Reference Range Interpretation Comments ACETAMINOPHEN (test < 1 MCG/ML 10-30 L Acetamin ophen is code = ACET) possibly toxic at levels of: 1. m ore than 150 MCG/ML 4 hours post catie stion. 2. more than 50 MCG/ML 12 hours post ingestion. [id number] 20:18:00 Test Item Value Reference Range Interpretation Comments SALICYLATE (test code = 4 MG/DL 0-20 N Refe rence Range: CODY) Analgesic...... ....... ..... < 10 mg/d l Therapeutic.... ....... ..... 15-20 mg/ dl Mild Toxicity....... ....... > 30 mg/dl Maria Teresa re Toxicity....... ..... > 60 mg/dl [id number] 20:18:00 Test Item Value Reference Range Interpretation Comments ALCOHOL (test code = < 3 MG/DL 0-10 N 0 - 1 0: Should be ALC) [...] emp loyment evaluative purp oses. CBC W/AUTO [id number] 20:10:00 Test Item Value Reference Range Interpretation [...] 0.05 x10 3/uL 0.0-0.2 N COMPREHENSIVE METABOLIC [id number] 14:17:00 Test Item Value Reference Range Interpretation [...] TOTAL (test code = ALKP) TROP-I HIGH [id number] 14:17:00 Test Item Value Reference Range Interpretation Comments TROP-I HIGH SENSITIVITY < 4 ng/L < 76 - The use of serial (test code = TROPIHS) sampli ng and testing protocol is a recommended pra ctice.- An elevated tro ponin level alone is often not sufficient for diagnosis of myocardial infarction.Resu lts of this assay meth od may be falsely depr essed orelevated if p atient is taking high doses of Biotin. [id number] 12:51:00 Test Item Value Reference Range Interpretation [...] emp loyment evaluative purp oses. UA RFLX [id number] 12:28:00 Test Item Value Reference Range Interpretation [...] Catch (test code = UASPEC) CBC W/AUTO [id number] 12:25:00 Test Item Value Reference Range Interpretation [...] 0.0-0.2 N NRBC#) - XR CHEST 1 [id number] 12:07:00 [facility] : 2000 Sex: M Patient Name: VIVIENNE CAMACHO Unit No: [id number] EXAMS: CPT CODE: [id number] XR CHEST 1 V 83078 Reason: syncope EXAM: - XR CHEST 1 [...] Corky FARRELL Technologist:Nadine Shane, RT Trscrpt Dt/ (1207)[email or web address] Orig Print D/T: S: 07/19/2022 (1211) [facility] NAME: VIVIENNE CAMACHO [address] [facility] PHYS: [place] [address] : 2000 AGE: 22 SEX: M LOC: [place] PHONE #: [phone] EXAM DATE: 07/19/2022 STATUS: REG ER FAX #: RAD NO: DC Dt: PAGE 1 Signed [id number] 03:48:00 Test Item Value Reference Range Interpretation Comments CK (test code = CKT) 111 Units/L 39-308 N [id number] 03:48:00 Test Item Value Reference Range Interpretation [...] emp loyment evaluative purp oses. UA RFLX [id number] 22:42:00 Test Item Value Reference Range Interpretation [...] Catch DESCRIPTION (test code = UASPEC) UA [id number] 22:42:00 Test Item Value Reference Range Interpretation [...] A code = FINEU) Coronavirus 2018 nCoV [id number] 22:22:00 Test Item Value Reference Range Interpretation Comments Coronavirus 2019 Negative Negative ID NOW COVI D-19 assay nCoV Bedside (test performed on the ID NOW code = [id number]) Instrum ent ulysses rapid molecular in vi tro diagnostic test utilizing anisothermal nu cleic acid amplification t echnology intendedfor the qualitative det ection of nucleic acid fr om [id number] v iral RNA in direct nasal , [...] , and epidemiological informatio n. COMPREHENSIVE METABOLIC [id number] 22:21:00 Test Item Value Reference Range Interpretation [...] 50-136 N TOTAL (test code = ALKP) [id number] 22:21:00 Test Item Value Reference Range Interpretation Comments ACETAMINOPHEN (test < 1 MCG/ML 10-30 L Acetamin ophen is code = ACET) possibly toxic at levels of: 1. m ore than 150 MCG/ML 4 hours post catie stion. 2. more than 50 MCG/ML 12 hours post ingestion. [id number] 22:21:00 Test Item Value Reference Range Interpretation Comments SALICYLATE (test code = 5 MG/DL 0-20 N Refe rence Range: CODY) Analgesic...... ....... ..... < 10 mg/d l Therapeutic.... ....... ..... 15-20 mg/ dl Mild Toxicity....... ....... > 30 mg/dl Maria Teresa re Toxicity....... ..... > 60 mg/dl DRUG OF ABUSE SCREEN [id number] 22:12:00 Test Item Value Reference Interpretation Comments [...] by norah avila methods (i.e., GC/MS) at [facility]. Results of scre en may not be usedin crimi nal justice, job performance or professionalcre dential review, or infa nt custody issues. Negativ e [place] Level ng/ml ------- ----- Cocaine 300 Methamphetamine (Ecstacy) 500 Cannabinoid s (THC) 50 Amphetamine 100 0 Barbiturates 20 0 Benzodiazepines 200 Opiates 300 Phencyclid ine (PCP) 25 CBC W/AUTO [id number] 22:05:00 Test Item Value Reference Range Interpretation [...] Notes Date/Time Note Provider Source 2022-08-02 17:39:00-00:00 [facility] ([facility]) OR A [facility] OF [facility] EMERGENCY PROVIDER REPORT REPORT#:[id number] REPORT STATUS: Signed DATE:08/02/22 TIME: 1738 PATIENT: VIVIENNE CAMACHO UNIT #: [id number] ROOM/BED: AGE: 22 SEX: M PCP PHYS: No Primary or Family Ph ysician SERVICE AUTHOR: Sergio Shane MD * ALL edits or amendments must be made on the el ectronic/computer document * Sergio Shane 08/02/22 173: HPI-General Illness Free Text HPI Notes Free [...] at this time. General Initial Greet Date/Time 08/02/22 1735 Presentation Chief Complaint __ (Ingestion? trazadone) Review [...] No Known Home Medications Referrals Provider Group: [facility] Address: [facility] [place] [facility] [place] [place] [address] Arsen Bernard 08/02/221911: Physical Exam Vital Signs Vital Signs First Documented: Result Date Time Pulse Ox 96 / 1736 B/P 142/65 /04 1736 B/P Mean 90 / 1736 O2 Delivery Room air 06/ 1736 Temp 36.8 06/04 1736 Pulse 85 06/04 1736 Resp 18 08/02 1736 Last Documented: Result Date Time Pulse Ox 96 06/ 1736 B/P 142/65 /04 1736 B/P Mean 90 / 1736 O2 Delivery Room air 06/ 1736 Temp 36.8 06/04 1736 Pulse 85 06/04 1736 Resp 18 08/02 1736 Interpretation Diagnostics Lab Results Interpretation Results Laboratory Tests 08/02/221758: [Embedded Image Not Available] Laboratory Tests: 08/02 08/02 175 1744 Chemistry Sodium (133 - 145 MMOL/L) [...] % (Auto) (24 - 44 %) 24.1 [place] % (Auto) (0.0 - 4.0 %) 7.6 [...] pH (5.5 - 7.0) 6.0 Ur Specific [place] (1.001 - 1.035) 1.010 Urine Protein (NEGATIVE [...] the chest. Impression By: [email or web address] - Jere Slivestre MD Re-Evaluation MDM Free Text MDM Notes Free Text MDM Notes @1900 - pt with hx of schizophrenia, [facility] at re-evaluation, pt is agitated, aggrav ated that he cannot sleep. I attempted to have a discussion with the patient pertaining his sx and he states they "messed him up at the [facility]." on labs, patient has elevated alcohol [...] B/P 142/65 /04 1736 B/P Mean 90 08/02 1736 O2 Delivery Room air 08/02 1736 Temp 36.8 /04 1736 Pulse 85 06/04 1736 Resp 18 08/02 1736 Last Documented: Result Date Time Pulse Ox 96 08/02 1736 B/P 142/65 /04 1736 B/P Mean 90 08/02 1736 O2 Delivery Room air 08/02 1736 Temp 36.8 /04 1736 Pulse 85 /04 1736 Resp 18 08/02 1736 All vital signs available at the [...] symptoms should prompt an immediate return to [facility] or the closest emergency department or a call to 911. Electronically Signed by Arsen Bernard MD on 06/21 at 1926 at 0622 RPT #:[id number] END OF REPORT 2022-07-19 11:47:00-00:00 [facility] ([facility]) OR A [facility] EMERGENCY PROVIDER REPORT REPORT#:[id number] REPORT STATUS: Signed DATE:07/19/22 TIME: 1147 PATIENT: VIVIENNE CAMACHO UNIT #: [id number] ROOM/BED: AGE: 22 SEX: M PCP PHYS: Undefined Provider SERVICE AUTHOR: Corky Grace * ALL edits or amendments must be made on the [email or web address] document * HPI-Syncope Free Text HPI Notes [...] Current Moderate Relieved by Nothing Context Established Readiness Paraprofessional No Recent Healthcare Recent hospitalization, Recent testing, [...] Medical History - Adult Stated Complaint CHEST [id number] Allergies Coded Allergies: No Known Allergies (07/18/22) [...] % (Auto) (24 - 44 %) 30.4 [place] % (Auto) (0.0 - 4.0 %) 11.6 [...] pH (5.5 - 7.0) 6.0 Ur Specific [place] (1.001 - 1.035) 1.014 Urine Protein (NEGATIVE [...] acute cardiopulmonar y process. Impression By: [email or web address] Ke Caceres MD Lab Imaging Statement Laboratory radiographic [...] Referrals Provider Referral: Car Bradley Address: [address] [facility] [facility] [address] [facility] [address] [place] [address] Provider Referral: Beatriz Chen Address: [address] [place] [address] Provider Referral: Nikok Petty MD Address: [address] [facility] [address] [place] [address] Discharge Note I have spoken with the [...] symptoms should prompt an immediate [facility] to [facility] or the closest emergency department or a call to 911. at [address] [facility] #:[phone] END OF REPORT
[2022-11-12 23:08] LABS: Absolute Lymphocytes (CBC) 1.2 K/uL (0.7-4.9); Hematocrit 40.6 % (39.6-49.0); Lymphocytes % 26.6 % (15.3-44.8); MPV 8.4 fL (7.6-11.3); Platelets 165 thou/uL (152-406); RBC Red Blood Cell Count 4.62 M/uL (4.33-5.43)
[2022-11-12 23:19] LABS: Magnesium 2.1 mg/dL (1.6-2.4); Potassium 3.4 mEq/L (3.5-5.1); Troponin High Sensitivity 3.2 pg/mL (<58.9)
[2022-11-12] MEDS ORDERED: KETOROLAC 30 MG/ML INJ ONE (23:41)
[2022-11-12] MEDS ORDERED: POTASSIUM 25 MEQ EFFERV TAB ONE (23:41)
[2022-11-13 00:23] LABS: Specific Gravity 1.005 (1.005-1.030); Urine Bacteria None Seen /HPF (<20); Urine Bilirubin NEGATIVE (Negative); Urine Blood Negative (Negative); Urine Clarity Clear (Clear); Urine Color Colorless (Yellow); Urine Glucose NEGATIVE (Negative); Urine Protein NEGATIVE (Negative); Urine RBC <5 /HPF (None Seen); Urine Urobilinogen Normal (Normal)
[2022-11-13 00:42] LABS: Barbiturates NEGATIVE (NEGATIVE); Benzodiazepines NEGATIVE (NEGATIVE); Cocaine NEGATIVE (NEGATIVE); METHAMPHETAM NEGATIVE (NEGATIVE); Methadone NEGATIVE (NEGATIVE); Opiates NEGATIVE (NEGATIVE); Phencyclidine NEGATIVE (NEGATIVE); THC Cannibis NEGATIVE (NEGATIVE)
--- NOTE | 2022-11-13 01:45 | ER ---
Nurse's Notes [facility] Name: Luis Fernando Smith Age: 22 yrs Sex: Male : 2000 Arrival Date: 11/12/2022 Time: 22:06 Bed 17 Private MD: Diagnosis: Chest pain, unspecified Presentation: 11/12 22:10 Chief complaint: Patient states: "I've been having chest pain for years" EMS states: as6 called out for chest pain. Coronavirus screen: At this time, the client does not indicate any symptoms associated with coronavirus-19. Ebola Screen: No symptoms or risks identified at this time. Initial Sepsis Screen: Does the patient meet any 2 criteria? No. Patient's initial sepsis screen is negative. Does the patient have a suspected source of infection? No. Patient's initial sepsis screen is negative. Risk Assessment: Do you want to hurt yourself or someone else? Patient reports no desire to harm self or others. Onset of symptoms is unknown. 22:10 Acuity: TATO 3 as6 22:10 Method Of Arrival: EMS: [facility] as6 Triage Assessment: 22:07 General: Appears in no apparent distress. Behavior is cooperative, anxious, speech is as6 rambling . General: Behavior is. Pain: Complains of pain in chest. EENT: No deficits noted. No signs and/or symptoms were reported regarding the EENT system. Neuro: Level of Consciousness is awake, alert, confused, Oriented to person, place, time, situation. Cardiovascular: Reports chest pain, Capillary refill < 3 seconds Patient's skin is warm and dry. Respiratory: Airway is patent Trachea midline Respiratory effort is even, unlabored, Respiratory pattern is regular, symmetrical. GI: No deficits noted. No signs and/or symptoms were reported involving the gastrointestinal system. : No deficits noted. No signs and/or symptoms were reported regarding the genitourinary system. Derm: Skin is intact, is healthy with good turgor. Musculoskeletal: Circulation, motion, and sensation intact. Historical: - Allergies: 22:10 NKDA; as6 - PMHx: 22:10 Bipolar disorder; Schizophrenia; as6 - PSHx: 22:10 None; as6 - Immunization history:: Client reports having NOT received the Covid vaccine. - Social history:: Smoking status: Patient reports the use of cigarette tobacco products. Screenin:11 [facility] ED Fall Risk Assessment (Adult) Score/Fall Risk Level 0 - 2 = Low Risk. Abuse as6 screen: Denies threats or abuse. Denies injuries from another. Nutritional screening: No deficits noted. Tuberculosis screening: No symptoms or risk factors identified. Assessment: 23:09 General: Appears uncomfortable, Behavior is anxious. Neuro: Level of Consciousness is kd3 awake, alert, obeys commands, Oriented to person, place, time, situation. Cardiovascular: Patient's skin is warm and dry. Respiratory: Airway is patent Trachea midline Respiratory effort is even, unlabored, Respiratory pattern is regular, symmetrical. 11/13 01:55 General: Appears in no apparent distress. Behavior is calm, cooperative. Neuro: Level kd3 of Consciousness is awake, alert, obeys commands, Oriented to person, place, time, situation. Respiratory: Airway is patent Trachea midline Respiratory effort is even, unlabored, Respiratory pattern is regular, symmetrical. Vital Signs: 11/12 22:07 BP 134 / 84; Pulse 88; Resp 18 S; Temp 98.1(TE); Pulse Ox 96% on R/A; Weight 68.04 kg as6 (R); Height 5 ft. 2 in. (R); Pain 8/10; 23:10 BP 105 / 61; Pulse 79; Resp 18; Pulse Ox 98% on R/A; kd3 23:33 BP 123 / 78; Pulse 88; Resp 16; Pulse Ox 99% on R/A; kd3 22:07 Body Mass Index 27.44 (68.04 kg, 157.48 cm) as6 22:07 Pain Scale: Adult as6 ED Course: 22:07 Patient arrived in ED. as6 22:07 Arm band placed on. as6 22:11 Triage completed. as6 22:11 Bed in low position. Call light in reach. Side rails up X2. as6 22:15 Trever Rosenberg PA is PHCP. cp 22:15 Omi Griffiths MD is Attending Physician. cp 22:39 Gracia Cordero, HONEY is Primary Nurse. kd3 22:45 Inserted saline lock: 20 gauge in right antecubital area, using aseptic technique. kd3 Blood collected. 22:45 No provider procedures requiring assistance completed. kd3 22:54 XRAY Chest (1 view) In Process Unspecified. EDMS 23:08 Basic Metabolic Panel Sent. kd3 23:08 CBC with Diff Sent. kd3 23:08 D-Dimer Sent. kd3 23:08 Magnesium Sent. kd3 23:08 Troponin HS Sent. kd3 23:59 Urinalysis W/Microscopic Sent. kd3 23:59 UDS Sent. kd3 11/13 01:56 Provided Education on: chest pain. kd3 01:56 IV discontinued, intact, bleeding controlled, No redness/swelling at site. Pressure kd3 dressing applied. Administered Medications: 11/12 23:33 Drug: Ketorolac IVP 15 mg Route: IVP; Site: right antecubital; kd3 11/13 01:56 Follow up: Response: No adverse reaction; Pain is decreased kd3 11/12 23:33 Drug: Potassium PO Effervescent Tablet 25 mEq Route: PO; kd3 11/13 01:56 Follow up: Response: No adverse reaction kd3 Medication: 11/12 22:11 VIS not applicable for this client. as6 Outcome: 11/13 01:45 Discharge ordered by . rosaura 01:55 Discharged to home ambulatory. kd3 01:55 Condition: stable 01:55 Discharge instructions given to patient, PT left prior to receiving D/C instructions and declined prescription. verbal education provided. Instructed on discharge instructions, follow up and referral plans. Demonstrated understanding of instructions, follow-up care. 01:56 Patient left the ED. kd3 Signatures: Dispatcher [employer] EDMS Trever Rosenberg PA PA cp Slawson, Ashby, RN RN as6 Gracia Cordero RN RN kd3
--- NOTE | 2022-11-13 01:45 | EDPHYS ---
Physician Documentation [facility] Name: Luis Fernando Smith Age: 22 yrs Sex: Male : 2000 Arrival Date: 11/12/2022 Time: 22:06 Bed 17 Private MD: ED Physician Omi Griffiths HPI: 11/12 22:45 This 22 yrs old Male presents to ER via EMS with complaints of Chest Pain. cp 22:45 The patient or guardian reports chest pain that is located primarily in the anterior cp chest wall. 22:45 The pain does not radiate. The chest pain is described as aching. Duration: The patient cp or guardian reports a single episode, that is still ongoing, and unchanged. Severity of pain: in the emergency department the pain is unchanged despite EMS interventions. Historical: - Allergies: 22:10 NKDA; as6 - PMHx: 22:10 Bipolar disorder; Schizophrenia; as6 - PSHx: 22:10 None; as6 - Immunization history:: Client reports having NOT received the Covid vaccine. - Social history:: Smoking status: Patient reports the use of cigarette tobacco products. ROS: 22:50 Constitutional: Negative for body aches, chills, fever, poor PO intake. cp 22:50 Eyes: Negative for injury, pain, redness, and discharge. cp 22:50 ENT: Negative for drainage from ear(s), ear pain, sore throat, difficulty swallowing, difficulty handling secretions. 22:50 Cardiovascular: Positive for chest pain, Negative for edema, palpitations. 22:50 Respiratory: Positive for shortness of breath, Negative for cough, wheezing. 22:50 Abdomen/GI: Negative for abdominal pain, vomiting, diarrhea, constipation. 22:50 Back: Negative for pain at rest, pain with movement. 22:50 Neuro: Negative for altered mental status, dizziness, headache, numbness, syncope, near syncope, weakness. 22:50 All other systems are negative. Exam: 22:25 ECG was reviewed by the Attending Physician. cp 22:55 Constitutional: The patient appears in no acute distress, alert, awake, cp non-diaphoretic, non-toxic, well developed, well nourished. 22:55 Head/Face: Normocephalic, atraumatic. cp 22:55 Eyes: Periorbital structures: appear normal, Conjunctiva: normal, no exudate, no injection, Sclera: no appreciated abnormality, Lids and lashes: appear normal, bilaterally. 22:55 ENT: External ear(s): are unremarkable, Nose: is normal, Mouth: Lips: moist, Oral mucosa: pink and intact, moist, Posterior pharynx: is normal, airway is patent, no erythema, no exudate. 22:55 Chest/axilla: Inspection: normal, Palpation: crepitus, is not appreciated, tenderness, that is mild, of the anterior aspect of right upper chest, anterior aspect of left upper chest and mid-sternal area. 22:55 Cardiovascular: Rate: normal, Rhythm: regular, Edema: is not appreciated, JVD: is not appreciated. 22:55 Respiratory: the patient does not display signs of respiratory distress, Respirations: normal, no use of accessory muscles, no retractions, labored breathing, is not present, Breath sounds: are clear throughout, no decreased breath sounds, no stridor, no wheezing. 22:55 Abdomen/GI: Inspection: abdomen appears normal, Palpation: abdomen is soft and non-tender, in all quadrants. 22:55 Back: pain, is absent. 22:55 Neuro: Orientation: to person, place, situation, Mentation: able to follow commands, Motor: moves all fours, strength is normal. 22:55 Psych: Behavior/mood is cooperative, Patient has no thoughts/intents to harm self or others. Judgement / Insight is normal. Delusions/hallucinations are not present. Vital Signs: 22:07 BP 134 / 84; Pulse 88; Resp 18 S; Temp 98.1(TE); Pulse Ox 96% on R/A; Weight 68.04 kg as6 (R); Height 5 ft. 2 in. (R); Pain 8/10; 23:10 BP 105 / 61; Pulse 79; Resp 18; Pulse Ox 98% on R/A; kd3 23:33 BP 123 / 78; Pulse 88; Resp 16; Pulse Ox 99% on R/A; kd3 22:07 Body Mass Index 27.44 (68.04 kg, 157.48 cm) as6 22:07 Pain Scale: Adult as6 MDM: 22:15 Patient medically screened. cp 23:00 Differential diagnosis: abnormal EKG, acute myocardial infarction, costochondritis, cp pleurisy, pneumonia, pneumothorax. 11/13 01:45 Data reviewed: vital signs, nurses notes, lab test result(s), EKG, radiologic studies, cp plain films. 01:45 I considered the following discharge prescriptions or medication management in the emergency department Medications were administered in the Emergency Department. See MAR. Independent interpretation of the following test(s) in the Emergency Department EKG: See my EKG interpretation above X-Ray: My interpretation is chest image negative for infiltrates. Counseling: I had a detailed discussion with the patient and/or guardian regarding the historical points, exam findings, and any diagnostic results supporting the discharge/admit diagnosis, lab results, radiology results, to return to the emergency department if symptoms worsen or persist or if there are any questions or concerns that arise at home. Response to treatment: the patient's symptoms have markedly improved after treatment, and as a result, I will discharge patient. Special discussion: Based on the patient's history, exam, and Dx evaluation, there is no indication for emergent intervention or inpatient Tx. It is understood by the patient/guardian that if the Sx's persist or worsen they need to return immediately for re-evaluation. 11/12 22:38 Order name: Basic Metabolic Panel; Complete Time: 23:26 11/13 00:42 Interpretation: Reviewed. 11/12 22:38 Order name: CBC with Diff; Complete Time: 23:26 11/12 22:38 Order name: D-Dimer; Complete Time: 23:26 11/12 22:38 Order name: Magnesium; Complete Time: 23:26 11/12 22:38 Order name: Troponin HS; Complete Time: 23:26 11/12 23:26 Order name: UDS; Complete Time: 01:44 11/12 23:26 Order name: Urinalysis W/Microscopic; Complete Time: 00:42 11/12 23:27 Order name: CK; Complete Time: 00:42 11/13 01:07 Order name: Troponin High Sensitivity; Complete Time: 01:44 11/12 22:38 Order name: XRAY Chest (1 view) 11/12 22:38 Order name: EKG; Complete Time: 22:40 11/12 22:38 Order name: Cardiac monitoring; Complete Time: 22:44 11/12 22:38 Order name: EKG - Nurse/Tech; Complete Time: 22:44 cp 11/12 22:38 Order name: IV Saline Lock; Complete Time: 23:08 11/12 22:38 Order name: Labs collected and sent; Complete Time: 23:08 cp 11/12 22:38 Order name: O2 Per Protocol; Complete Time: 23:08 cp 11/12 22:38 Order name: O2 Sat Monitoring; Complete Time: 23:08 EC/14 22:25 Rate is 90 beats/min. Rhythm is regular. FL interval is normal. QRS interval is normal. cp QT interval is normal. T waves are Inverted in leads III, aVR. Interpreted by me. Reviewed by me. Administered Medications: 23:33 Drug: Ketorolac IVP 15 mg Route: IVP; Site: right antecubital; 3 11/13 01:56 Follow up: Response: No adverse reaction; Pain is decreased 3 11/12 23:33 Drug: Potassium PO Effervescent Tablet 25 mEq Route: PO; kd3 11/13 01:56 Follow up: Response: No adverse reaction 3 Disposition: 02:36 Co-signature as Attending Physician, Omi Griffiths MD I reviewed the patient's care rn provided by the Advanced Practice Provider and agree with the diagnosis and treatment plan. Disposition Summary: 11/13/22 01:45 Discharge Ordered Location: Home cp Problem: new cp Symptoms: have improved cp Condition: Stable cp Diagnosis - Chest pain, unspecified cp Followup: cp - With: Private Physician - When: 1 - 2 days - Reason: Recheck today's complaints Discharge Instructions: - Discharge Summary Sheet cp - Nonspecific Chest Pain, Adult cp Forms: - Medication Reconciliation Form cp - Thank You Letter cp - Antibiotic Education cp - Prescription Opioid Use cp - Patient Portal Instructions cp - Leadership Thank You Letter cp Prescriptions: - Ibuprofen 800 mg Oral Tablet - take 1 tablet by ORAL route every 8 hours As needed take with food; 30 tablet; cp Refills: 0, Product Selection Permitted Signatures: Dispatcher [employer] Omi Sunshine MD MD rn Page, Corey, PA PA cp Angel Luis Kim RN RN as6 Gracia Cordero RN RN kd3
[2022-11-13 02:01] VITALS: TEMP 98.1
[2022-11-13 02:05] VITALS: BP 123/78; O2SAT 99
--- NOTE | 2022-11-13 16:32 | EKG ---
Test Date: 2022-11-12 Test Time: 22:19:27 Parts Department Supervisor: MEASUREMENT RESULTS: Intervals: Rate: 90 WV: 140 QRSD: 82 QT: 354 QTc: 433 [place]: P: 18 WV: 140 QRS: 93 T: 7 INTERPRETIVE STATEMENTS: Normal sinus rhythm Nonspecific T wave abnormality Abnormal ECG Compared to ECG 11/06/2022 10:35:30 T-wave abnormality now present Electronically Signed On 11-13-22 16:31:29 CDT by Torrey Reagan
--- NOTE | 2022-11-13 17:49 | RAD REPORT ---
EXAM DESCRIPTION: RAD - Chest Single View - 11/12/2022 10:52 pm CLINICAL HISTORY: Chest pain. TECHNIQUE: AP portable chest x-ray upright on 11/12/2022, at 22: 45. COMPARISON: 01/05/2022, at 22: 49. FINDINGS: Heart: Normal size and configuration. Mediastinal Structures: Normal and midline.. Lung Hawkins: No active disease. Pulmonary Vascularity: Normal. Pleural Space: No active disease. Bony Structures: Normal. IMPRESSION: Normal study. Electronically signed by: Nitish Huggins MD 11/12/2022 11:00 PM CDT Due to temporary technical issues with the PACS/Fluency reporting system, reports are being signed by the in house radiologists without review as a courtesy to insure prompt reporting. The interpreting radiologist is fully responsible for the content of the report.
== END 2022-11-13 01:56 | disposition home or self-care (01) ==
LOC: ER 22:06
DX: R07.89 Other chest pain (principal); F17.210 Nicotine dependence, cigarettes, uncomplicated
CPT/HCPCS: 36415; 71045; 80048; 80307; 81001; 82550; 83735; 84484; 85025; 85379; 93005; 96374; 99284